=== PATIENT | male | born 1995 | race African-American/Black ===

== ENCOUNTER 2024-08-05 13:45 | Emergency (ER) | payer OTHER, SELFPAY ==
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
[2024-08-05 14:11] VITALS: BP 116/68; PULSE 56; RESP 18; TEMP 36.4; O2SAT 100
[2024-08-05] MEDS: ACETAMINOPHEN 500 MG TABLET 1000 MG PO (16:15)
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
--- OUTSIDE RECORDS SUMMARY | 2024-08-09 16:46 | XMS_ITS ---
Author Organization [facility] Address [address] [place] [address] Care Team Providers Care Printed Forms Proofreader Name Role Phone Crissy Barahona Primary Care Provider REASON FOR VISIT 2 month f/up Encounters Encounter Location Date Provider Diagnosis [facility] [address] [place] [address] 05/09/2024 Crissy Barahona Plan Of Treatment No Information Progress Notes * Eric MARTINDOB:1995 (28 yo M)Acc No.[id number]:05/09/2024 Progress Notes Patient:?Eric MARTIN Provider:?Crissy Barahona DNP, FNP-C :1995???Age:28 Y???Sex:Male Jason e:05/09/2024 Address:[address] [place] Subjective: * Chief Complaints: * ???1. 2 month f/up. * Medical History:? Objective: Assessment: Plan: * Treatment: * Care Plan Details* * Electronic signature of Yaquelin Barahona DNP, FNP-C on 08/09/2024 at 04:46 PM SECURITY SYSTEMS ADMINISTRATOR Sign off status: Pending Visit Status:?N/S (No-Show) * Provider:?Crissy Barahona DNP, FNP-C Jason e:?05/09/2024 Generated for Printi ng/Faxing/eTransmitting on:?08/09/2024 04:46 PM SECURITY SYSTEMS ADMINISTRATOR
--- OUTSIDE RECORDS SUMMARY | 2024-08-09 16:46 | XMS_ITS ---
Author Organization [facility] Address [address] [place] [address] Care Team Providers Care Auto Self Service Station Attendant Name Role Phone Crissy Barahona Primary Care Provider REASON FOR VISIT 2 month f/up Encounters Encounter Location Date Provider Diagnosis [facility] [address] [place] [address] 05/08/2024 Crissy Barahona Plan Of Treatment No Information Progress Notes * Eric MARTINDOB:1995 (28 yo M)Acc No.[id number]:05/08/2024 Progress Notes Patient:?Eric MARTIN Provider:?Crissy Barahona DNP, FNP-C :1995???Age:28 Y???Sex:Male Jason e:05/08/2024 Address:[address] [facility] Subjective: * Chief Complaints: * ???1. 2 month f/up. * Medical History:? Objective: Assessment: Plan: * Treatment: * Care Plan Details* * Electronic signature of Yaquelin Barahona DNP, FNP-C on 08/09/2024 at 04:46 PM ARTS ADMINISTRATOR OR MANAGER Sign off status: Pending Visit Status:?N/S (No-Show) * Provider:?Crissy Barahona DNP, FNP-C Jason e:?05/08/2024 Generated for Printi ng/Faxing/eTransmitting on:?08/09/2024 04:46 PM ARTS ADMINISTRATOR OR MANAGER
--- OUTSIDE RECORDS SUMMARY | 2024-08-09 16:47 | XMS_ITS | Encounter Summary ---
Author Organization [facility] Address [address] [place] [address]. [place], [place] [id number] [place], [place] [id number] Care Team Providers Care Special Education Educational Assistant Name Role Phone Ivett Hong MD Primary Care Provider +1- [phone] Encounter Details Date Type Department Care Team (Latest Contact Info) Description 03/22/2024 Travel Social History Tobacco Use Types Packs/Day Years Used Date Smoking Tobacco: Every Day Cigarettes Smokeless Tobacco: Never Sex and Gender Information Value Date Recorded Sex Assigned at Not on file Legal Sex Male 10:01 PM VP LEGAL AFFAIRS Gender Identity Not on file Sexual Orientation Not on file documented as of this encounter Plan of Treatment Not on file documented as of this encounter Visit Diagnoses Not on filedocumented in this encounter Care Teams Special Education Educational Assistant Relationship Specialty Start Date End Date Ivett Hong MD PCP - General FAMILY PRACTICE 05/20/22 documented as of this encounter
--- OUTSIDE RECORDS SUMMARY | 2024-08-09 16:47 | XMS_ITS | Encounter Summary ---
Author Organization [facility] Address [address] [place] [address]. [place], [place] [address] [place], [place] [id number] Care Team Providers Care Timber Management Specialist Name Role Phone Ivett Hong MD Primary Care Provider +1- [phone] Encounter Details Date Type Department Care Team (Latest Contact Info) Description 09/06/2023 Travel Social History Tobacco Use Types Packs/Day Years Used Date Smoking Tobacco: Never Assessed Sex and Gender Information Value Date Recorded Sex Assigned at Not on file Legal Sex Male 10:01 PM WELLNESS DIRECTOR Gender Identity Not on file Sexual Orientation Not on file documented as of this encounter Plan of Treatment Not on file documented as of this encounter Visit Diagnoses Not on filedocumented in this encounter Care Teams Timber Management Specialist Relationship Specialty Start Date End Date Ivett Hong MD PCP - General FAMILY PRACTICE 05/20/22 documented as of this encounter
--- OUTSIDE RECORDS SUMMARY | 2024-08-09 16:47 | XMS_ITS | Encounter Summary ---
Author Organization [facility] Address [address] [place] [address]. [place], [place] [id number] [place] [address] Care Team Providers Care Counter Clerk [employer] Name Role Phone Ivett Hong MD Primary Care Provider +1- [phone] Encounter Details Date Type Department Care Team (Latest Contact Info) Description 10/28/2022 Travel Social History Tobacco Use Types Packs/Day Years Used Date Smoking Tobacco: Never Assessed Sex and Gender Information Value Date Recorded Sex Assigned at Not on file Legal Sex Male 10:01 PM MANAGER INFUSION Gender Identity Not on file Sexual Orientation Not on file COVID-19 Exposure Response Date Recorded In the last 10 days, have yo u been in contact with someone who was confirmed or suspected to have Coronavirus/COVID-19? No / Unsure 10/28/2022 12:38 PM MANAGER INFUSION documented as of this encounter Plan of Treatment Not on file documented as of this encounter Visit Diagnoses Not on filedocumented in this encounter Care Teams Counter Clerk [employer] Relationship Specialty Start Date End Date Ivett Hong MD PCP - General FAMILY PRACTICE 05/20/22 documented as of this encounter
--- OUTSIDE RECORDS SUMMARY | 2024-08-09 16:47 | XMS_ITS | Encounter Summary ---
Author Organization [facility] Address [address] [place] [address]. [place] [address] [place] [address] Care Team Providers Care Student Officer Name Role Phone None, Provider Primary Care Provider Unavaila ble Reason for Referral * Imaging (Emergency) - Closed Specialty Diagnoses / Procedures Referred By Gavin perez Referred To Contact RADIOLOGY Procedures US TESTICULAR Jose Daniel NP Phone: tel: fax: Referral ID Status Reason Start Date Expiration Date Visits Re quested Visits Authorized [id number] Closed 05/31/2019 07/01/2020 1 1 Reason for Visit * Reason Comments Testicle Swelling Encounter Details Date Type Department Care Team (Late st Contact Info) Description 05/31/2019 2:07 PM CDT - 05/31/2019 5:04 PM CDT Emergency [facility] Emergency [address] [place] [address] Karissa Marin, TINO Testicle Swelling Discharge Disposition: Home or Self Care (Routine Discharge) Social History Tobacco Use Types Packs/Day Years Used Date Smoking Tobacco: Never Assessed Sex and Gender Information Value Date Recorded Sex Assigned at Not on file Legal Sex 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 Gender Identity Not on file Sexual Orientation Not on file documented as of this encounter Last Filed Vital Signs Vital Sign Reading Time Taken Comments Blood Pressure 107/66 05/31/2019 5:01 PM CDT Pulse 79 05/31/2019 5:01 PM CDT Temperature 37.1 ??C (98.8 ??F) 05/31/2019 1:23 PM CD T Respiratory Rate 18 05/31/2019 5:01 PM CDT Oxygen Saturation 100% 05/31/2019 5:01 PM CDT Inhaled Oxygen Concentration - - Weight 61.7 kg (136 lb 0.4 oz) 05/31/2019 1:23 P M CDT Height 172.7 cm (5' 8 ) 05/31/2019 1:23 PM CDT Body Mass Index 20.68 05/31/2019 1:23 PM CDT documented in this encounter Discharge Instructions * Discharge Instructions* Karissa Cuevas NP - 05/31/2019 4:55 PM CDT -Wear scrotal support as discussed. -Elevate scrotum as much as possible, roll washcloth and place under scrotum as needed for comfort. -Pain medication as needed. -Follow-up as needed. -If prescribed medications, fill them and take as directed. -Follow up with your doctor or doctor referral, call next business day to schedule an appointment for ED follow up in 7-10 days. -Return to the Emergency Department for new or worsening symptoms. Please read and follow additional written instructions provided You were either given a dose of strong pain medication in the ED or pain medications to take at home. This pain medication may cause drowsiness. Please do not engage in activities that require you rose alert while taking this medication, such as driving a car or operating machinery. Do not drink alcohol while taking this medication. * Attachments The following attachments cannot be sent through Care Everywhere. * Hydrocele/Varicocele Discharge Instructions (Bulgarian) documented in this encounter Medications at Time of Discharge hydrocodone-aceta minophen 5-325 MG tabletIndications :Acute Pain < 3 Day Supply Take 1 tablet by mouth every 6 (six) hours as needed. Indications: Acute Pain < 3 Day Supply 10 tablet 05/31/2019 ibuprofen 600 MG tablet Take 1 tablet (600 mg total) by mouth every 6 (six) hours as needed. 20 tablet 05/31/2019 10/17/2022 documented as of this encounter ED Notes * Karissa Cuevas NP - 05/31/2019 2:24 PM CDT ED NOTE I, keri Tao, am personally taking down the notes in the presence of Karissa Cuevas NP.?Take no action on this note until reviewed and authenticated??by the physician. Chief Complaint Chief Complaint Patient presents with ??? Testicle Swelling History of Present Illness History provided by: Patient Patient is a 23-year-old male presenting to the ED seeking evaluation for intermittent left testicular pain x 1 week. Patient states the pain feels like pressure and states is not exacerbated by any activities. Comes and goes on its own. He states his daughter ran into him really hard causing the pain. He denies dysuria, left abdominal pain, penile discharge, hematuria, penile itchiness, CP, SOB,fever and chills. He states he has a PMHx of breaking his leg. Otherwise the patient is in their baseline state of health. Medical History ALLERGIES: No Known Allergies MEDICATIONS: Prior to Admission medications Medication Sig Start Date End Date Taking? Authorizing Provider hydrocodone-acetaminophen 5-325 MG tablet Take 1 tablet by mouth every 6 (six) hours as needed. Indications: Acute Pain < 3 Day Supply 05/31/19 Yes Karissa Cuevas NP ibuprofen 600 MG tablet Take 1 tablet (600 mg total) by mouth every 6 (six) hours as needed. 05/31/19 Yes Karissa Cuevas NP PAST MEDICAL HISTORY: No past medical history on file. PAST SURGICAL HISTORY: No past surgical history on file. FAMILY HISTORY: No family history on file. SOCIAL HISTORY: Social History Tobacco Use ??? Smoking status: Not on file Substance Use Topics ??? Alcohol use: Not on file ??? Drug use: Not on file Review of Systems Review of Systems Constitutional: Negative. Negative for chills and fever. HENT: Negative. Eyes: Negative. Respiratory: Negative. Negative for shortness of breath. Cardiovascular: Negative. Negative for chest pain. Gastrointestinal: Negative. Negative for abdominal pain (denies left abdominal pain). Endocrine: Negative. Genitourinary: Positive for testicular pain (reports intermittent left testicular pain). Negative for discharge, dysuria and hematuria. Denies penile itchiness. Musculoskeletal: Negative. Skin: Negative. Allergic/Immunologic: Negative. Neurological: Negative. Hematological: Negative. Psychiatric/Behavioral: Negative. Physical Exam Filed Vitals: 05/31/19 1323 05/31/19 1609 BP: 109/76 Pulse: 57 55 Resp: 18 18 Temp: 98.8 ??F (37.1 ??C) TempSrc: Oral SpO2: 97% 97% Weight: 61.7 kg (136 lb 0.4 oz) Height: 5' 8 (1.727 m) Physical Exam Nursing note and vitals reviewed. Generalized Appearance: No apparent distress. Well developed. Well nourished. Skin: Warm and dry. No rash. Head: Normocephalic and atraumatic Eyes: Conjunctiva clear with no scleral icterus or jaundice. PERRL/EOMI Neck: Non-tender. Supple. Trachea midline. Back: Non-tender. Normal ROM. Chest and Respiratory: Airway patent. Breath sounds equal. Lungs clear with auscultation. No stridor, wheezes, rales, or rhonchi. No accessory muscle use. No respiratory distress. Cardiovascular: Regular rate and rhythm. No murmur, rubs, or gallops. Abdominal: Non-tender. Bowel sounds present. Soft. Non-distended. No obvious masses or hernias. No rebound, guarding, or rigidity. Musculoskeletal: Normal ROM. No deformity. Neurologic: Alert and oriented x 3. No gross motor deficits. Mental Status: Normal affect. Genital-Rectal: male deferred. No inguinal tenderness to palpation of the left scrotal area. No erythema, edema, lesions or penile drainage to the left testicle. Left testicular tenderness to palpation. Diagnostic Studies / Procedures ELECTROCARDIOGRAMS: No results found for this visit on 05/31/19. LABORATORY STUDIES: Results for orders placed or performed during the hospital encounter of 05/31/19 URINALYSIS Result Value Ref Range COLOR YELLOW TRANSPARENCY CLEAR Specific [place] (U) 1.029 1.002 - 1.035 U PH 6.0 5 - 8 PROTEIN, URINE NEGATIVE NEGATIVE URINE GLUCOSE NEGATIVE NEGATIVE MG/DL U KETONES 20 (A) NEGATIVE Urine Bilirubin NEGATIVE NEGATIVE BLOOD NEGATIVE NEGATIVE NITRITES NEGATIVE NEGATIVE UROBILINOGEN 4.0 (H) 0 - 1 EU/DL LEUKOCYTE ESTERASE NEGATIVE NEGATIVE RBC/HPF 1 0 - 3 /HPF WBC/HPF NONE 0 - 6 /HPF BACTERIA (URINE) NONE /HPF IMAGING STUDIES US TESTICULAR Final Result by User, [id number] (10/09 1514) 05/31/2019, 1432 hours. HISTORY: Left testicular pain for one week. Intermittent pain. EXAM: Ultrasound imaging of the scrotum and contents was performed utilizing grayscale and color Doppler spectral analysis imaging techniques. No comparison. FINDINGS: The right testicle measures 2.7 x 4.0 x 2.6 cm. The left testicle measures 3.3 x 4.4 x 3.1 cm. No evidence of testicular mass or cyst. No focal areas of hyper echogenicity in either testicle and no evidence of testicular microlithiasis. Blood flows demonstrated to both testicles in a normal pattern with no evidence of testicular hyperemia nor testicular ischemia. 7 x 11 mm left epididymal cyst. Prominent left scrotal varices. Mild right scrotal varices. Small hydroceles. IMPRESSION: Normal ultrasound appearance to the testicles. Left epididymal cyst. Scrotal varices. Small hydroceles. Interpreted By: Breezy Chi MD, 05/31/2019 3:08 PM ED Course / Medical Decision Making MDM Number of Diagnoses or Management Options Epididymal cyst: new, needed workup Hydrocele: new, needed workup Scrotal varices: new, needed workup Amount and/or Complexity of Data Reviewed Clinical lab tests: reviewed and ordered Tests in the radiology section of CPT??: ordered and reviewed Patient Progress Patient progress: improved ED Course as of May 31 1656 Wed May 31, 2019 1432 Attempted to assess patient, already in US. [LF] 1512 Here for evaluation of pain to left testicle. Pain comes and goes, is not related to activity.No penile drainage or sores. Denies any risk for STIs. Left testicle tender to palpation, mildly enlarged. Awaiting US results and need for urine, patient agreeable with this. [LF] 1515 Normal ultrasound appearance to the testicles. Left epididymal cyst. Scrotal varices. Small hydroceles. US TESTICULAR [LF] 1648 Discussed US results with patient. Pain decreased after [place]. 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 Provided with Urology referral as needed as well as PCP referral. Discharged on short course of [place] and Motrin. Discussed all results and incidental findingswith the patient. Supportive measures discussed. Signs and symptoms to monitor for, reasons to return to the emergency department, discharge, and follow-up instructions given to patient. Patient verbalized understanding, denies further questions, and agrees with plan. VS normal at discharge. Cosigner will be: Dr. Aguirre. [LF] ED Course User Index [LF] Karissa Cuevas NP Medications hydrocodone-acetaminophen (NORCO) 5-325 MG tablet 1 tablet (1 tablet Oral Given 05/31/19 1521) Clinical Impression Scrotal varices (Primary) Hydrocele Epididymal cyst Disposition: Discharge Current Discharge Medication List START taking these medications Details hydrocodone-acetaminophen 5-325 MG tablet Take 1 tablet by mouth every 6 (six) hours as needed. Indications: Acute Pain < 3 Day Supply Qty: 10 tablet, Refills: 0 Class: Print Pharmacy: [facility]/pharmacy [address] [place] [address] (Ph #: [phone]) ibuprofen 600 MG tablet Take 1 tablet (600 mg total) by mouth every 6 (six) hours as needed. Qty: 20 tablet, Refills: 0 Class: Eprescribe [facility] [place] [address] (Ph #: [phone]) Follow-up: Zhou Mobley MD [address] [place] [id number] As needed, Urologist [facility] [address] [facility] [address] As needed, PCP referral Iris Luna, 05/31/19, 15:21. Provider Attestation: Portions of this note were transcribed by a scribe. IKarissa NP, personally performed the history, physical exam and medical decision making and confirmed the accuracy of the information in the transcribed note. KARISSA CUEVAS NP 05/31/2019 Karissa Cuevas NP 05/31/19 1656 Cosigned by Shelby Aguirre MD at 05/31/2019 5:05 PM CDT * Yaquelin Dutta RN - 05/31/2019 1:21 PM CDT PT ARRIVES AMBULATORY TO TRIAGE. C/O LEFT TESTICULAR SWELLING X 1 WEEK RATING PAIN AT 7. documented in this encounter Plan of Treatment Not on file documented as of this encounter Procedures Procedure Name Priority Date/Time Associated Diagnosis Comments URINALYSIS Nurse Collected Priority 05/31/2019 3:51 PM CDT URINE BACTERIA CULTURE Nurse Collected Priority 05/31/2019 3:51 PM CDT US TESTICULAR STAT 05/31/2019 3:01 PM CDT documented in this encounter Results * CULTURE URINE (05/31/2019 3:51 PM CDT) SPEC DESCRIPTION URINE CLEAN CATCH 05/31/2019 3:55 PM CDT [facility] SPECIAL REQUESTS NO SPECIAL REQUEST 05/31/2019 3:55 PM CDT [facility] CULTURE RESULT NO GROWTH (< OR = 1,000 CFU/ML) 06/01/2019 2:47 AM CDT [facility] URINE SPECIMEN OBTAINED BY CLEAN CATCH PROCEDURE / Unknown 05/31/2019 3:51 PM CDT 05/31/2019 3:59 PM CDT Jose Daniel NP MICROBIOLOGY - GENERAL [place] Final Result [facility] [address] [place] [address], [id number] * (ABNORMAL) URINALYSIS (05/31/2019 3:51 PM CDT) COLOR (U) YELLOW 05/31/2019 4:07 PM CDT [facility] TRANSPARENCY CLEAR 05/31/2019 4:07 PM CDT [facility] SPECIFIC GRAVITY (U) 1.029 1.002 - 1.035 05/31/2019 4:07 PM CDT [facility] U PH 6.0 5 - 8 05/31/2019 4:07 PM CDT [facility] PROTEIN (U) NEGATIVE NEGATIVE 05/31/2019 4:07 PM CDT [facility] URINE GLUCOSE NEGATIVE NEGATIVE MG/DL 05/31/2019 4:07 PM CDT [facility] KETONES MG/DL (U) 20(A) NEGATIVE 05/31/2019 4:07 PM CDT [facility] BILIRUBIN (U) NEGATIVE NEGATIVE 05/31/2019 4:07 PM CDT [facility] BLOOD (U) NEGATIVE NEGATIVE 05/31/2019 4:07 PM CDT [facility] NITRITES NEGATIVE NEGATIVE 05/31/2019 4:07 PM CDT [facility] UROBILINOGEN 4.0(H) 0 - 1 EU/DL 05/31/2019 4:07 PM CDT [facility] LEUKOCYTES (U) NEGATIVE NEGATIVE 05/31/2019 4:07 PM CDT [facility] RBC/HPF 1 0 - 3 /HPF 05/31/2019 4:07 PM CDT [facility] WBC/HPF NONE 0 - 6 /HPF 05/31/2019 4:07 PM CDT [facility] BACTERIA (U) NONE /HPF 05/31/2019 4:07 PM CDT [facility] URINE SPECIMEN OBTAINED BY CLEAN CATCH PROCEDURE / Unknown 05/31/2019 3:51 PM CDT us Jose Daniel FOOD AND DRUG RESEARCH SCIENTIST URINE ORDERABLES Final Resu lt [facility] [address] [place] [address], [id number] * US TESTICULAR (05/31/2019 3:01 PM CDT) Anatomical Region Laterality Modality Pelvis Ultrasound 05/31/2019 3:08 PM CDT Impressions 05/31/2019 3:13 PM CDT IMPRESSION: Normal ultrasound appearance to the testicles. Left epididymal cyst. Scrotal varices. Small hydroceles. Interpreted By: Breezy Chi MD, 05/31/2019 3:08 PM Narrative 05/31/2019 3:13 PM CDT 05/31/2019, 1432 hours. HISTORY: Left testicular pain for one week. Intermittent pain. EXAM: Ultrasound imaging of the scrotum and contents was performed utilizing grayscale and color Doppler spectral analysis imaging techniques. No comparison. FINDINGS: The right testicle measures 2.7 x 4.0 x 2.6 cm. The left testicle measures 3.3 x 4.4 x 3.1 cm. No evidence of testicular mass or cyst. No focal areas of hyper echogenicity in either testicle and no evidence of testicular microlithiasis. Blood flows demonstrated to both testicles in a normal pattern with no evidence of testicular hyperemia nor testicular ischemia. 7 x 11 mm left epididymal cyst. Prominent left scrotal varices. Mild right scrotal varices. Small hydroceles. Procedure Note Breezy Chi MD - 05/31/2019 05/31/2019, 1432 hours. HISTORY: Left testicular pain for one week. Intermittent pain. EXAM: Ultrasound imaging of the scrotum and contents was performed utilizing grayscale and color Doppler spectral analysis imagingtechniques. No comparison. FINDINGS: The right testicle measures 2.7 x 4.0 x 2.6 cm. The lefttesticle measures 3.3 x 4.4 x 3.1 cm. No evidence of testicular mass or cyst. No focal areas of hyper echogenicity in either testicle and no evidence of testicular microlithiasis. Blood flows demonstrated to both testicles frida normal pattern with no evidence of testicular hyperemia nor testicular ischemia. 7 x 11 mm left epididymal cyst. Prominent left scrotalvarices. Mild right scrotal varices. Small hydroceles. IMPRESSION: Normal ultrasound appearance to the testicles. Left epididymal cyst. Scrotal varices. Small hydroceles. Interpreted By: Breezy Chi MD, 05/31/2019 3:08 PM us Jose Daniel NP ULTRASOUND Final Resul t documented in this encounter Visit Diagnoses Diagnosis Scrotal varices- Primary Hydrocele Hydrocele, unspecified Epididymal cyst Other specified disorder of male genital organs documented in this encounter Administered Medications Inactive Administered Medications - up to 3 most recent administrations Medication Order MAR Action Action Date Dose Rate Site hydrocodone-acetaminophen (NORCO) 5-325 MG tablet 1 tablet 1 tablet, Oral, Once, 1 dose, On Wed05/31/19 at 1515, Maximum dose of acetaminophen is 4000 mg from all sources in 24 hours. Given 05/31/2019 3:21 PM CDT 1 tablet documented in this encounter Active and Recently Administered Medications Times are shown in CDT. Scheduled Medication Order 05/29/2019 05/30/2019 05/31/2019 hydrocodone-acetaminophen (NORCO) 5-325 MG tablet 1 tablet (COMPLETED) 1 tablet, Oral, Once, 1 dose, On Wed05/31/19 at 1515, Maximum dose of acetaminophen is 4000 mg from all sources in 24 hours. 1521 (Given - Provid er: Elinor Ivan RN) documented in this encounter Care Teams Student Officer Relationship Specialty Start Date End Date None, Provider, PCP - General 05/31/19 05/19/22 documented as of this encounter
--- OUTSIDE RECORDS SUMMARY | 2024-08-09 16:47 | XMS_ITS ---
Author Organization [facility] Address [address] [place] [address] Care Team Providers Care Rn On Site Name Role Phone Crissy Barahona Primary Care Provider Reason For Referral Reason Evaluate and treat Diagnosis 1 Liver mass (R16.0) Referral Organization [facility] Referring Provider First Name Crissy Referring Provider Last Name Jun Referring Provider Speciality Family Med icine Referred Provider [facility] Referred Provider Specialty Hepatology General Notes Endy Yates 03/27 12:26:32 PM >Faxed to [facility] Referrals,, Endy Yates 05/18/2024 04:28:12 PM >Pt scheduled 06/07/2024 @ 9:00 AM with Odalys Fountain NP of [facility], [address] [place] [address], [address] [place] [address]. Letter to pt. Referral Priority Routine Referral Appointment Date 06/07/2024 REASON FOR VISIT Test results Encounters Encounter Location Date Provider Diagnosis [facility] [address] [place] [address] 03/23/2024 Crissy Barahona Liver mass R16.0 Assessments Encounter Date Diagnosis (ICD Code) Assessment Notes Treatment Notes Treatment Clinical Notes Section Notes 03/23/2024 Liver mass (ICD-10 - R16.0) Plan Of Treatment Pending Test Test Name Order Date AFP TUMOR MARKER * 03/23/2024 MISCELLANEOUS SO * 03/23/2024 Referrals Referral Date Details 03/23/2024 03/23/2024, Evaluate and treat, [facility] Progress Notes * Osbaldo OLIVERA:1995 (28 yo M)Acc No.[id number]:03/23/2024 Patient:?Eric OLIVERA :1995???Age:28 Y???Sex:Male Address:[address] [place] [address], [phone] Subjective: * Chief Complaints: * ???Test results * Medical History:? * Surgical History:? * Hospitalization/Major Diagno stic Procedure:? * Medications:? Objective: * Vitals:? * Physical Examination:? Assessment: * Assessment: 1.?Liver mass - R16.0 (Prima ry)??? Plan: * Treatment: * Procedure Codes:? * true * Date:? Generated for Eneida calixto/Norma/eTransmitting on:?08/09/2024 04:46 PM GEM TECHNICIAN Consultation Request Notes Referral Date Referring Provider Referred Provider Not jacinta 03/23/2024 Crissy Barahona MEDICINE REFERRAL, Ev aluate and treat
--- OUTSIDE RECORDS SUMMARY | 2024-08-09 16:47 | XMS_ITS | Encounter Summary ---
Author Organization [facility] Address [address] [place] [address]. [place], [place] [id number] [place] [id number] Care Team Providers Care Truck Loader Name Role Phone Ivett Hong MD Primary Care Provider [phone] Reason for Referral * Imaging (Urgent) - New Request Specialty Diagnoses / Procedures Referred By Gavin perez Referred To Contact RADIOLOGY Procedures CT HEAD WO CON Oumar Mckenna MD Phone: tel: fax: Referral ID Status Reason Start Date Expiration Date V isits Requested Visits Authorized [id number] New Request 09/06/2023 09/06/2024 1 1 [facility]ASS Reason for Visit * Reason Comments Medical Problem Encounter Details Date Type Department Care Team (Late st Contact Info) Description 09/06/2023 7:08 PM SANDB[facility]ASS - 09/06/2023 10:18 PM [facility]AND[facility]ER [facility] Emergency [facility] Emergency [address] [place] [address] Oumar Mckenna MD [address] [place] [address] [id number] Medical Problem Discharge Disposition: Home or Self Care (Routine Discharge) Social History Tobacco Use Types Packs/Day Years Used Date Smoking Tobacco: Never Assessed Sex and Gender Information Value Date Recorded Sex Assigned at Not on file Legal Sex Male 10:01 PM SANDBLAST[facility]ASS Gender Identity Not on file Sexual Orientation Not on file documented as of this encounter Last Filed Vital Signs Vital Sign Reading Time Taken Comments Blood Pressure 139/101 09/06/2023 10:09 PM [facility] Pulse 84 09/06/2023 10:09 PM [facility]ASS Temperature 37 ??C (98.6 ??F) 09/06/2023 7:05 PM [facility]ASS Respiratory Rate 16 09/06/2023 10:0 9 PM [facility]ASS Oxygen Saturation 95% 09/06/2023 10: 09 PM [facility]ANDBLAST[facility]ASS Inhaled Oxygen Concentration - - Weight 58.8 kg (129 lb 10.1 oz) 09/06/2023 7:05 PM [facility] Height 167.6 cm (5' 6 ) 09/06/2023 7:05 PM [facility]ASS Body Mass Index 20.92 09/06/2023 7:05 PM SANDBLASTER [facility]ASS documented in this encounter Discharge Instructions * Discharge Instructions* Jennifer Angeles MD - 09/06/2023 10:13 PM S[facility]LAST[facility] Contact PCP about syncope as well as anxiety/insomnia/PTSD. BLASTER GLASS * Attachments The following attachments cannot be sent through Care Everywhere. * Syncope (fainting) (Citizen Of [place]) documented in this encounter Medications at Time of Discharge diclofenac EC (VOLTAREN) 75 MG tablet Take 1 tablet (75 mg total) by mouth every 12 (twelve) hours as needed (pain). 20 tablet 10/17/2022 HYDROcodone-aceta minophen (NORCO) 5-325 MG tabletIndications :Acute Pain < 3 Day Supply Take 1-2 tablets by mouth every 6 (six) hours as needed. Indications: Acute Pain < 3 Day Supply 16 tablet 10/17/2022 hydrocodone-aceta minophen 5-325 MG tabletIndications :Acute Pain < 3 Day Supply Take 1 tablet by mouth every 6 (six) hours as needed. Indications: Acute Pain < 3 Day Supply 10 tablet 05/31/2019 documented as of this encounter ED Notes * Oumar Mckenna MD - 09/06/2023 7:28 PM CST Chief Complaint Chief Complaint Patient presents with Medical Problem History of Present Illness Patient is a 27-year-old male with no known past medical history who presents today for chronic syncopal episodes. He did not pass out today however he did notice a presyncopal episode. He states that he has been passing out for no known reason for the last 3 years. He notes that he was previously admitted to the ER for stitches on his chin after a fall. He says that he is aware of when he may bepassing out now so he is able to sit on the floor to prevent syncope. He reports that he does not see any doctors and never followed up about the syncopal episodes until today. He says that he just came in today because of the presyncopal episode. He reports that he can usually tell when he is about the syncopal episode because of feeling warm or cold. Medical History ALLERGIES: Review of patient's allergies indicates: No Known Allergies MEDICATIONS: Prior to Admission medications Medication Sig Start Date End Date Taking? Authorizing Provider diclofenac EC (VOLTAREN) 75 MG tablet Take 1 tablet (75 mg total) by mouth every 12 (twelve) hours as needed (pain). 10/17/22 Jose Daniel NP HYDROcodone-acetaminophen (NORCO) 5-325 MG tablet Take 1-2 tablets by mouth every 6 (six) hours as needed. Indications: Acute Pain < 3 Day Supply 10/17/22 Jose Daniel NP hydrocodone-acetaminophen 5-325 MG tablet Take 1 tablet by mouth every 6 (six) hours as needed. Indications: Acute Pain < 3 Day Supply 05/31/19 Karissa Marin NP PAST MEDICAL HISTORY: History reviewed. No pertinent past medical history. PAST SURGICAL HISTORY: No past surgical history on file. FAMILY HISTORY: No family history on file. SOCIAL HISTORY: Review of Systems Review of Systems Constitutional: Negative for activity change, chills, fatigue and fever. HENT: Negative for congestion, facial swelling, hearing loss and nosebleeds. Respiratory: Negative for apnea, cough, choking, chest tightness and shortness of breath. Cardiovascular: Negative for chest pain and leg swelling. Gastrointestinal: Negative for abdominal distention, abdominal pain and anal bleeding. Endocrine: Negative for cold intolerance and heat intolerance. Genitourinary: Negative for difficulty urinating and dysuria. Musculoskeletal: Negative for arthralgias and back pain. Skin: Negative for color change, pallor and rash. Neurological: Negative for dizziness, light-headedness and headaches. Psychiatric/Behavioral: Negative for agitation, behavioral problems and confusion. The patient is nervous/anxious. Physical Exam Filed Vitals: 09/06/23 1905 09/06/23 1948 09/06/23 2113 09/06/23 2209 BP: (!) 153/84 (!) 153/90 (!) 154/99 (!) 139/101 Pulse: 95 (!) 102 100 84 Resp: 18 14 17 16 Temp: 98.6 ??F (37 ??C) TempSrc: Oral SpO2: 97% 98% 98% 95% Weight: 58.8 kg (129 lb 10.1 oz) Height: 1.676 m (5' 6 ) Physical Exam HENT: Head: Normocephalic. Eyes: Pupils: Pupils are equal, round, and reactive to light. Cardiovascular: Rate and Rhythm: Normal rate and regular rhythm. Heart sounds: No murmur heard. No friction rub. No gallop. Pulmonary: Effort: Pulmonary effort is normal. No respiratory distress. Breath sounds: No stridor. No wheezing. Abdominal: General: There is no distension. Tenderness: There is no abdominal tenderness. Musculoskeletal: General: No swelling. Skin: Coloration: Skin is not jaundiced. Findings: No bruising. Neurological: Mental Status: He is alert. Motor: No weakness. Diagnostic Studies / Procedures ELECTROCARDIOGRAMS: Results for orders placed or performed during the hospital encounter of 09/06/23 ECG 12 lead Narrative [facility] Test Date: 2023-09-06 Pat Name: FELISA OLIVERA Department: 70 Room: EXAM AA Gender: Male Hydrogen Operator: Shazia JEAN-BAPTISTE : 1995 Requested By: JENNIFER ANGELES Order Number: [id number] Reading MD: Measurements Intervals [place] Rate: 88 P: 69 [place]: 129 QRS: 81 QRSD: 110 T: 55 QT: 331 QTc: 401 Interpretive Statements SINUS RHYTHM WITH SINUS ARRHYTHMIA EARLY REPOLARIZATION [ST ELEVATION WITH NORMALLY INFLECTED T-WAVE] LABORATORY STUDIES: Results for orders placed or performed during the hospital encounter of 09/06/23 CBC W/DIFF AUTOMATED Result Value Ref Range WBC 2.65 (L) 4.00 - 10.80 x10'3/uL RBC 4.86 4.50 - 6.10 x10'6/uL HGB 15.3 13.0 - 18.0 G/DL HCT 43.4 37.0 - 52.0 % MCV 89.3 78.0 - 100.0 FL MCH 31.5 (H) 27.0 - 31.0 PG MCHC 35.3 33.0 - 36.0 G/DL RDW 12.1 11.5 - 14.5 % PLT 273 150 - 350 x10'3/uL MPV 8.7 7.4 - 10.4 FL ABS. NEUTROPHILS 1.14 (L) 1.60 - 8.30 x10'3/uL ABS. NEUTROPHIL COUNT 1.14 (L) 1.60 - 7.30 x10'3/uL ABS. LYMPHOCYTES 1.11 0.80 - 4.70 x10'3/uL ABS. MONOCYTES 0.19 0.00 - 1.50 x10'3/uL ABS. EOSINOPHILS 0.13 0.00 - 0.40 x10'3/uL ABS. BASOPHILS 0.08 0.00 - 0.20 x10'3/uL ABS. NUCLEATED RBC'S 0.00 0.0 x10'3/uL RBC MORPHOLOGY NORMAL PLT MORPH. NORMAL BASIC METABOLIC PANEL Result Value Ref Range SODIUM S/P/B 142 136 - 145 MMOL/L POTASSIUM S/P/B 3.6 3.5 - 5.1 MMOL/L CHLORIDE S/P/B 104 98 - 107 MMOL/L CO2 31.8 21.0 - 32.0 MMOL/L GLUCOSE 92 74 - 106 MG/DL BUN 12 7 - 18 MG/DL CREATININE S/P/B 1.01 0.70 - 1.30 MG/DL CALCIUM S/P/B 9.7 8.5 - 10.1 MG/DL ANION GAP 6.2 5.0 - 15.0 MMOL/L OSMOLALITY (CALC) 293 MOSM/KG GFR ESTIMATE >90 >90 ML/MIN/1.73 M2 GFR NOTES GFR REFERENCES: TROPONIN, QUANT Result Value Ref Range TROPONIN I HIGH SENSITIVITY 21 0 - 78 ng/L MAGNESIUM Result Value Ref Range MAGNESIUM 2.3 1.6 - 2.6 MG/DL TSH W/REFLEX Result Value Ref Range TSH 1.220 0.358 - 3.740 uIU/ML HEPATIC FUNCTION PANEL Result Value Ref Range BILIRUBIN TOTAL S/P/B 0.7 0.2 - 1.0 MG/DL BILIRUBIN DIRECT S/P/B 0.2 0.0 - 0.2 MG/DL ALKALINE PHOSPHATASE S/P/B 93 45 - 115 U/L AST 42 (H) 15 - 37 U/L ALT 36 16 - 61 U/L TOTAL PROTEIN S/P/B 8.3 (H) 6.4 - 8.2 G/DL ALBUMIN S/P/B 4.5 3.4 - 5.0 G/DL DRUG SCREEN RAPID Result Value Ref Range PHENCYCLIDINE PCP (U) NEGATIVE NEGATIVE BENZODIAZEPINES SCREEN (U) NEGATIVE NEGATIVE COCAINE METABOLITES (U) NEGATIVE NEGATIVE AMPHETAMINE (U) NEGATIVE NEGATIVE CANNABINOIDS SCREEN (U) (A) NEGATIVE POSITIVE SCREEN RESULT, IF CONFIRMATION DESIRED PLEASE CONTACT LAB WITHIN ONE WEEK. OPIATE SCREEN (U) NEGATIVE NEGATIVE BARBITURATES SCREEN (U) NEGATIVE NEGATIVE URINE TOX COMMENT Unconfirmed screening results are to be used only for medical purposes. CUTOFF CONCENTRATION (U) Cut-off Concentration for a positive result IMAGING STUDIES CT HEAD WO CON Final Result by User, [id number] (09/06 2017) EXAMINATION: CT of the head CLINICAL HISTORY: Syncope versus seizure COMPARISON: 10/11/2020 TECHNIQUE: CT examination of the head without contrast was performed with axial images obtained. A dose lowering technique was used for this procedure, which may include, but is not limited to, dose reduction technique, automated exposure control, the use of iterative reconstruction, and ALARA (As Low As Reasonably Achievable) / Image Gently techniques. FINDINGS: No acute intracranial hemorrhage, extra-axial collections, intracranial mass effect, or midline shift. Brown-white matter differentiation grossly preserved. No definite CT evidence of acute territorial infarction. Ventricles and extra-axial/subarachnoid spaces are unremarkable. Calvarium unremarkable. Mastoid air cells clear. Paranasal sinuses clear. Visualized orbits unremarkable. IMPRESSION: 1. No definite CT evidence of acute intracranial abnormality. Referred By: Interpreted By: Vin Chapman MD, 09/06/2023 8:15 PM XR CHEST PORTABLE Final Result by User, [id number] (09/06 1953) EXAM: XR CHEST PORTABLE DATE: 09/06/2023 Comparison 08/25/2005 INDICATION: Not feeling right. TECHNIQUE: One view FINDINGS: Normal heart and pulmonary vessel size. The lungs are clear. No interstitial edema, hyperinflation, or pleural effusion. Normal appearance of the bones. IMPRESSION: Normal exam. Referred By: Interpreted By: Bakari Ferrara MD, 09/06/2023 7:48 PM ED Course / Medical Decision Making Medical Decision Making Work patient up for syncopal episodes CBC, BMP, IVF, troponins, CXR, magnesium ED Course as of 09/08/23452Sep 06, [id number] Discussed results with patient. WBC low, neutropenic. Other labs wnl. EKG unremarkable. [LA] 2209 CT head and CXR unremarkable. Plan to discharge patient. Plan to follow up outpatient for syncopal episodes and difficulty sleeping at night [LA] ED Course User Index [LA] Jennifer Angeles MD Clinical Impression Pre-syncope (Primary) Disposition: Discharge Portions of this note were written by a resident. I independently performed history and physical examination of the patient. I was present for the entirety of the encounter and directed patient care and medical decision making. I have reviewed the resident's note and am in agreement, except where otherwise documented by myself. At time of dsicharge, no acute distress. Neutropenia noted on labs without evidence of infectious etiology. Afebrile. Laboratory and radiologic work-up otherwise negative for acute process. EKG without evidence of ischemia. Oumar Mckenna MD 09/08/23452 BLASTER GLASS BLASTER GLASS BLASTER GLASS * ANGELICA Miles - 09/06/2023 7:03 PM CST Pt arrives to triage with c/o feeling like something is not right . Pt states sometimes he gets a point where he almost passes out. States this has been ongoing for years. Pt appears anxious at timeof triage, is pacing at this time. Denies any PMH BLASTER GLASS documented in this encounter Plan of Treatment Not on file documented as of this encounter Procedures Procedure Name Priority Date/Time Associated Diagnosis Comments DRUG SCREEN RAPID Nurse Collected Priority 09/06/2023 10:[address] HEAD WO CON STAT 09/06/2023 8:07 PM SANDBLASTER [facility]ASS XR CHEST PORTABLE STAT 09/06/2023 7:3 9 PM [facility]ANDB[facility]ASS TSH W/REFLEX STAT 09/06/2023 7:37 PM [facility]ANDBLAST[facility]ASS BASIC METABOLIC PANEL STAT 09/06/2023 7:37 PM [facility]AND[facility]LASTER [facility]ASS HEPATIC FUNCTION PANEL STAT 09/06/2023 7:37 PM SANDBLASTER [facility]ASS CBC W/DIFF AUTOMATED STAT 09/06/2023 7:37 PM [facility]ANDBLASTER [facility]ASS TROPONIN, QUANT STAT 09/06/2023 7:37 PM [facility] MAGNESIUM STAT 09/06/2023 7:37 PM SANDBLASTER [facility]ASS ECG 12-LEAD STAT 09/06/2023 7:32 PM SANDBLASTER [facility]ASS documented in this encounter Results * (ABNORMAL) DRUG SCREEN RAPID (09/06/2023 10:10 PM SANDBLASTER GLASS) PHENCYCLIDINE PCP (U) NEGATIVE NEGATIVE 09/06/2023 10:58 PM [facility] BENZODIAZEPINES SCREEN (U) NEGATIVE NEGATIVE 09/06/2023 10:58 PM [facility] COCAINE METABOLITES (U) NEGATIVE NEGATIVE 09/06/2023 10:58 PM [facility] [place] AMPHETAMINE (U) NEGATIVE NEGATIVE 10:58 PM [facility] CANNABINOIDS SCREEN (U) POSITIVE SCREEN RESULT, IF CONFIRMATION DESIRED PLEASE CONTACT LAB WITHIN ONE WEEK. (A) NEGATIVE 09/06/2023 10:58 PM [facility] OPIATE SCREEN (U) NEGATIVE NEGATIVE 024 10:58 PM [facility]AND[facility]LASTER [facility]ASS [facility] BARBITURATES SCREEN (U) NEGATIVE NEGATIVE 09/06/2023 10:58 PM [facility]ASS [facility] URINE TOX COMMENT Unconfirmed screening results are to be used only for medical purposes. 09/06/2023 10:10 PM [facility] CUTOFF CONCENTRATION (U) Cut-off Concentration for a positive result 09/06/2023 10:10 PM [facility]ASS [facility] Comment: Phencyclidine ? 25 ng/mL Benzodiazepines ? 200 ng/mL Cocaine ? 300 ng/mL Amphetamine ? 1000 ng/mL Cannabinoids ?50 ng/mL Opiates ? 300 ng/mL Barbiturates ?200 ng/mL URINE SPECIMEN / Unknown 09/06/2023 10:10 PM SANDBLASTER [facility]ASS us Oumar Mckenna MD URINE ORDERABLES Final Re sult [facility] [address] [place] [address], [id number] * CT HEAD WO CON (09/06/2023 8:07 PM SANDBLASTER GLASS) Anatomical Region Laterality Modality Head Computed Tomogra phy 09/06/2023 8:15 PM SANDBLASTER [facility]ASS Impressions 09/06/2023 8:17 PM [facility]AND[facility]LASTER [facility]ASS IMPRESSION: 1. No definite CT evidence of acute intracranial abnormality. Referred By: ?? Interpreted By: Vin Chapman MD, 09/06/2023 8:15 PM Narrative 09/06/2023 8:17 PM SANDB[facility]ER [facility]ASS EXAMINATION: CT of the head CLINICAL HISTORY: Syncope versus seizure COMPARISON: 10/11/2020 TECHNIQUE: CT examination of the head without contrast ??was performed with axial images obtained. A dose lowering technique was used for this procedure, which may include, but is not limited to, dose reduction technique, automated exposure control, the use of iterative reconstruction, and ALARA (As Low As Reasonably Achievable) / Image Gently techniques. FINDINGS: No acute intracranial hemorrhage, extra-axial collections, intracranial mass effect, or midline shift. Brown-white matter differentiation grossly preserved. No definite CT evidence of acute territorial infarction. Ventricles and extra- axial/subarachnoid spaces are unremarkable. Calvarium unremarkable. Mastoid air cells clear. Paranasal sinuses clear. Visualized orbits unremarkable. Procedure Note Vin Chapman MD - 09/06/2023 EXAMINATION: CT of the head CLINICAL HISTORY: Syncope versus seizure COMPARISON: 10/11/2020 TECHNIQUE: CT examination of the head without contrast was performed withaxial images obtained. A dose lowering technique was used for this procedure, which may include,but is not limited to, dose reduction technique, automated exposurecontrol, the use of iterative reconstruction, and ALARA (As Low AsReasonably Achievable) / Image Gently techniques. FINDINGS: No acute intracranial hemorrhage, extra-axial collections, intracranialmass effect, or midline shift. Brown-white matter differentiation grosslypreserved. No definite CT evidence of acute territorial infarction.Ventricles and extra-axial/subarachnoid spaces are unremarkable. Calvariumunremarkable. Mastoid air cells clear. Paranasal sinuses clear. Visualizedorbits unremarkable. IMPRESSION: 1. No definite CT evidence of acute intracranial abnormality. Referred By: Interpreted By: Vin Chapman MD, 09/06/2023 8:15 PM us Oumar Mckenna MD CT Final Res ult * XR CHEST PORTABLE (09/06/2023 7:39 PM SANDBLASTER GLASS) Anatomical Region Laterality Modality Chest Radiographic Chelsie ging 09/06/2023 7:48 PM SANDBLASTER [facility]ASS Impressions 09/06/2023 7:52 PM [facility]AND[facility]ASS IMPRESSION: Normal exam. Referred By: ?? Interpreted By: Bakari Ferrara MD, 09/06/2023 7:48 PM Narrative 09/06/2023 7:52 PM SANDBLASTER [facility]ASS EXAM: XR CHEST PORTABLE DATE: 09/06/2023 ?? Comparison 08/25/2005 INDICATION: Not feeling right. TECHNIQUE: One view FINDINGS: Normal heart and pulmonary vessel size. ??The lungs are clear. ??No interstitial edema, hyperinflation, or pleural effusion. ??Normal appearance of the bones. Procedure Note Bakari Ferrara MD - 09/06/2023 EXAM: XR CHEST PORTABLE DATE: 09/06/2023 Comparison 08/25/2005 INDICATION: Not feeling right. TECHNIQUE: One view FINDINGS: Normal heart and pulmonary vessel size. The lungs are clear.No interstitial edema, hyperinflation, or pleural effusion. Normalappearance of the bones. IMPRESSION: Normal exam. Referred By: Interpreted By: Bakari Ferrara MD, 09/06/2023 7:48 PM Jennifer Angeles MD GENERAL IMAGING Final Result * (ABNORMAL) HEPATIC FUNCTION PANEL (09/06/2023 7:37 PM SANDBLASTER [facility]ASS) BILIRUBIN TOTAL S/P/B 0.7 0.2 - 1.0 MG/DL 09/06/2023 8:41 PM [facility] BILIRUBIN DIRECT S/P/B 0.2 0.0 - 0.2 MG/DL 09/06/2023 8:41 PM [facility] [place] ALKALINE PHOSPHATASE S/P/B 93 45 - 115 U/L 09/06/2023 8:41 PM [facility] [place] AST 42(H) 15 - 37 U/L 09/06/2023 8:41 PM [facility] [place] ALT 36 16 - 61 U/L 09/06/2023 8:41 PM [facility] [place] TOTAL PROTEIN S/P/B 8.3(H) 6.4 - 8.2 G/DL 09/06/2023 8:41 PM [facility] [place] ALBUMIN S/P/B 4.5 3.4 - 5.0 G/DL 09/06/2023 8:41 PM [facility] [place] 09/06/2023 7:37 PM SANDBLASTER GLASS us Oumar Mckenna MD LABORATORY Final Res ult Performing Organization Address [facility] Co de Phone Number [facility] [address] [place] [address], [phone] * TSH W/REFLEX (09/06/2023 7:37 PM SANDBLASTER GLASS) TSH 1.220 0.358 - 3.740 uIU/ML 09/06/2023 8:41 PM [facility]LASTER [place] Comment: ASSAY PERFORMED BY CHEMILUMINESCENCE METHODOLOGY USING [employer] [facility]. PATIENT RESULTS DETERMINED BY ASSAYS USING DIFFERENT MANUFACTURERS FOR METHODS MAY NOT BE COMPARABLE. 09/06/2023 7:37 PM SANDBLASTER GLASS us Oumar Mckenna MD LABORATORY Final Res ult Performing Organization Address [facility] de Phone Number [facility] [address] [place] [address], [phone] * MAGNESIUM (09/06/2023 7:37 PM SANDBLASTER GLASS) MAGNESIUM 2.3 1.6 - 2.6 MG/DL 09/06/2023 8:14 PM [facility] 09/06/2023 7:37 PM SANDBLASTER GLASS us Jennifer Angeles MD LABORATORY Final Result Performing Organization Address [facility] Co de Phone Number [facility] [address] [place] [address], [phone] * TROPONIN, QUANT (09/06/2023 7:37 PM SANDBLASTER GLASS) Pathologist [facility] TROPONIN I HIGH SENSITIVITY 21 0 - 78 ng/L 09/06/2023 8:14 PM [facility] 09/06/2023 7:37 PM SANDBLASTER GLASS Jennifer Angeles MD LABORATORY Final Result [facility] [address] [place] [address], [phone] * BASIC METABOLIC PANEL (09/06/2023 7:37 PM SANDBLASTER GLASS) [facility] SODIUM S/P/B 142 136 - 145 MMOL/L 09/06/2023 8:14 PM [facility] POTASSIUM S/P/B 3.6 3.5 - 5.1 MMOL/L 09/06/2023 8:14 PM [facility] CHLORIDE S/P/B 104 98 - 107 MMOL/L 09/06/2023 8:14 PM [facility] CO2 31.8 21.0 - 32.0 MMOL/L 09/06/2023 8:14 PM [facility] GLUCOSE 92 74 - 106 MG/DL 09/06/2023 8:14 PM [facility] BUN 12 7 - 18 MG/DL 09/06/2023 8:14 PM [facility] CREATININE S/P/B 1.01 0.70 - 1.30 MG/DL 09/06/2023 8:14 PM [facility] CALCIUM S/P/B 9.7 8.5 - 10.1 MG/DL 09/06/2023 8:14 PM [facility] ANION GAP 6.2 5.0 - 15.0 MMOL/L 09/06/2023 8:14 PM [facility] OSMOLALITY (CALC) 293 MOSM/KG 024 8:14 PM [facility] [place] Comment:REFERENCE RANGE NOT ESTABLISHED GFR ESTIMATE >90 >90 ML/MIN/1. 73 M2 09/06/2023 8:14 PM [facility] [place] GFR NOTES GFR REFERENCE S: 09/06/2023 8:14 PM [facility] [place] Comment: THE ESTIMATED GFR IS CALCULATED USING THE 2020 CKD-EPI EQUATION. THE FOLLOWING CATEGORIES FOR GRADING RENAL FUNCTION ARE RECOMMENDED BY THE INTERNATIONAL SOCIETY OF NEPHROLOGY (KDIGO 2012 CLINICAL PRACTICE GUIDELINE). G1,NORMAL OR HIGH: >89 ml/min/1.73 m2 G2,MILDLY DECREASED: 60-89 ml/min/1.73 m2 G3A,MILDLY TO MODERATELY DECREASED: 45-59 ml/min/1.73 m2 G3B,MODERATELY TO SEVERELY DECREASED: 30-44 ml/min/1.73 m2 G4,SEVERELY DECREASED: 15-29 ml/min/1.73 m2 G5,KIDNEY FAILURE: <15 ml/min/1.73 m2 09/06/2023 7:37 PM SANDBLASTER [place]ASS Jennifer Angeles MD LABORATORY Final Result [facility] [address] [place] [id number], [id number] * (ABNORMAL) CBC W/DIFF AUTOMATED (09/06/2023 7:37 PM SANDBLASTER GLASS) WBC 2.65(L) 4.00 - 10.80 x10'3/uL 09/06/2023 7:50 PM [facility] [place] RBC 4.86 4.50 - 6.10 x10'6/uL 09/06/2023 7:50 PM [facility] [place] [facility] HGB 15.3 13.0 - 18.0 G/DL 09/06/2023 7:50 PM [facility] [place] [facility] HCT 43.4 37.0 - 52.0 % 09/06/2023 7:50 PM [facility] [place] MCV 89.3 78.0 - 100.0 FL 09/06/2023 7:50 PM [facility] MCH 31.5(H) 27.0 - 31.0 PG 09/06/2023 7:50 PM [facility] MCHC 35.3 33.0 - 36.0 G/DL 09/06/2023 7:50 PM [facility] RDW 12.1 11.5 - 14.5 % 09/06/2023 7:50 PM [facility] PLT 273 150 - 350 x10'3/uL 09/06/2023 7:50 PM [facility] AND HOME LAB MPV 8.7 7.4 - 10.4 [place] 09/06/2023 7:50 PM [facility] ABS. NEUTROPHILS 1.14(L) 1.60 - 8.30 x10'3/uL 09/06/2023 8:30 PM [facility] ABS. NEUTROPHILS CALCULATED 1.14(L) 1.60 - 7.30 x10'3/uL 09/06/2023 8:30 PM [facility] ABS. LYMPHOCYTES 1.11 0.80 - 4.70 x10'3/uL 09/06/2023 8:30 PM [facility] ABS. MONOCYTES 0.19 0.00 - 1.50 x10'3/uL 09/06/2023 8:30 PM [facility] ABS. EOSINOPHILS 0.13 0.00 - 0.40 x10'3/uL 09/06/2023 8:30 PM [facility] ABS. BASOPHILS 0.08 0.00 - 0.20 x10'3/uL 09/06/2023 8:30 PM [facility] ABS. NUCLEATED RBC'S 0.00 0.0 x10'3/uL 09/06/2023 8:30 PM [facility] RBC MORPHOLOGY NORMAL 09/06/2023 8:30 PM [facility] PLT MORPH. NORMAL 09/06/2023 8:30 PM [facility] 09/06/2023 7:37 PM [facility] us Jennifer Angeles MD LABORATORY Final Result [facility] [address] [place] [address], [id number] * ECG 12 lead (09/06/2023 7:32 PM [facility]) 09/06/2023 7:32 PM [facility] Narrative [facility] - 09/08/2023 11:51 AM [facility] ?SJS-ED ? Test Date: ?2023-09-06 Pat Name: ? FELISA OLIVERA ?Department: ?? 70 ? Room: ? EXAM AA Gender: ? Male ? Hydrogen Operator: ?? Shazia JEAN-BAPTISTE DOB: ?1995 ? Requested By: JENNIFER ANGELES Order Number: [id number] ? Reading : ?? Luciano Rivera ? Measurements Intervals ?[place] ? Rate: ? 88 ? P: ?69 [place]: ? 129 ?QRS: ?81 QRSD: ? 110 ?T: ?55 QT: ? 331 ? QTc: ?401 ? Interpretive Statements SINUS RHYTHM WITH SINUS ARRHYTHMIA EARLY REPOLARIZATION VOLTAGE CRITERIA FOR LVH, MAY BE NORMAL VARIANT [facility]ASS Procedure Note Luciano Rivera MD - 09/08/2023 [facility] Test Date: 2023-09-06 Pat Name: FELISA OLIVERA Department: 70 Room: EXAM AA Gender: Male Hydrogen Operator: Shazia JEAN-BAPTISTE : 1995 Requested By: JENNIFER ANGELES Order Number: [id number] Ministerio MD: Luciano Rivera Measurements Intervals [place] Rate: 88 P: 69 [place]: 129 QRS: 81 QRSD: 110 T: 55 QT: 331 QTc: 401 Interpretive Statements SINUS RHYTHM WITH SINUS ARRHYTHMIA EARLY REPOLARIZATION VOLTAGE CRITERIA FOR LVH, MAY BE NORMAL VARIANT [facility] Jennifer Angeles MD ECG ORDERABLES Final Result [facility] documented in this encounter Visit Diagnoses Diagnosis Pre-syncope- Primary Syncope and collapse documented in this encounter Administered Medications Inactive Administered Medications - up to 3 most recent administrations Medication Order MAR Action Action Date Dose Rate Site normal saline 0.9 % flush 3-10 mL 3-10 mL, Intravenous, Every 8 hours, First dose on Wed09/06/23 at 1930, Until Discontinued Given 09/06/2023 7:38 PM [facility] 10 mLs normal saline 0.9 % flush 3-10 mL 3-10 mL, Intravenous, As needed, Line care, Starting on Wed09/06/23 at 1928, Until 09/07/23 at 0023 sodium chloride 0.9% bolus infusion 1,000 mL 1,000 mL, Intravenous, Administer over 60 Minutes, Once, 1 dose, On Wed09/06/23 at 1930 New Bag 09/06/2023 7:38 PM [facility] 1,000 mLs documented in this encounter Active and Recently Administered Medications Times are shown in [facility]. Scheduled Medication Order 09/04/2023 09/05/2023 09/06/2023 normal saline 0.9 % flush 3-10 mL 3-10 mL, Intravenous, Every 8 hours, First dose on Wed09/06/23 at 1930, Until Discontinued 1937 (Given - Provid er: ANGELICA Matthew) sodium chloride 0.9% bolus infusion 1,000 mL (COMPLETED) 1,000 mL, Intravenous, Administer over 60 Minutes, Once, 1 dose, On Wed09/06/23 at 1930 1938 (New Bag - Prov ider: ANGELICA Matthew)2014 (Infusion Stop Time - Provider: ANGELICA Matthew) PRN Medication Order 09/04/2023 09/05/2023 09/06/2023 normal saline 0.9 % flush 3-10 mL 3-10 mL, Intravenous, As needed, Line care, Starting on Wed09/06/23 at 1928, Until Wed09/07/23 at 0023 documented in this encounter Care Teams Truck Loader Relationship Specialty Start Date End Date Ivett Hong MD PCP - General FAMILY PRACTICE 05/20/22 documented as of this encounter
--- OUTSIDE RECORDS SUMMARY | 2024-08-09 16:47 | XMS_ITS | Encounter Summary ---
Author Organization [facility] Address [address] [place] [address]. 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 No / Unsure 05/20/2022 5:03 PM CDT documented as of this encounter Plan of Treatment Not on file documented as of this encounter Visit Diagnoses Not on filedocumented in this encounter Care Teams Flight Mechanic Relationship Specialty Start Date End Date Ivett Hong MD PCP - General FAMILY PRACTICE 05/20/22 documented as of this encounter
--- OUTSIDE RECORDS SUMMARY | 2024-08-09 16:47 | XMS_ITS | Encounter Summary ---
Author Organization [facility] Address [address] [place] [address]. [place] [address] [place] [address] Care Team Providers Care Simonizer Name Role Phone Ivett Hong MD Primary Care Provider [phone]- [phone] Reason for Visit * Reason Comments Abdominal Pain Vomiting Encounter Details Date Type Department Care Team (Late st Contact Info) Description 05/20/2022 5:57 PM CDT - 05/20/2022 6:41 PM CDT Emergency [facility] Emergency [address] [place], [place] [id number] Chad Tirado MD [address] [place] [id number] Abdominal Pain; Vomiting Discharge Disposition: Home or Self Care (Routine Discharge) Social History Tobacco Use Types Packs/Day Years Used Date Smoking Tobacco: Never Assessed Sex and Gender Information Value Date Recorded Sex Assigned at Not on file 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 No / Unsure 05/20/2022 5:03 PM CDT documented as of this encounter Last Filed Vital Signs Vital Sign Reading Time Taken Comments Blood Pressure 116/69 05/20/2022 5:04 PM CDT Pulse 76 05/20/2022 5:04 PM CDT Temperature 36.9 ??C (98.4 ??F) 05/20/2022 5:04 PM CD T Respiratory Rate 20 05/20/2022 5:04 PM CDT Oxygen Saturation 99% 05/20/2022 5:04 PM CDT Inhaled Oxygen Concentration - - Weight 61 kg (134 lb 7.7 oz) 05/20/2022 5:04 PM CDT Height 172.7 cm (5' 8 ) 05/20/2022 5:04 PM CDT Body Mass Index 20.45 05/20/2022 5:04 PM CDT documented in this encounter Discharge Instructions * Discharge Instructions* Nakul George MD - 05/20/2022 6:28 PM CDT Call your primary care physician and follow-up with them at their earliest available appointment. Zofran as prescribed on the bottle. Please return for any new, worsening, concerning symptoms. Pleasereturn for any of the following: You feel very weak, like you can???t stand up, and your skin is cool, clammy, or looks blue or de jesus. You have severe abdominal pain. You have chest pain or trouble breathing. You have signs of severe fluid loss, such as: No urine for more than 8 hours. You feel very lightheaded or like you are going to pass out. You feel weak like you are going to fall. You are not able to keep any fluids down. You develop early signs of fluid loss again, such as: Your urine is very dark colored. Your mouth is dry. You have muscle cramps. You have a lack of energy. You feel light-headed when you get up. * Attachments The following attachments cannot be sent through Care Everywhere. * Viral Gastroenteritis Discharge Instructions, Adult (Kazakh) documented in this encounter Medications at Time of Discharge hydrocodone-acetamin ophen 5-325 MG tabletIndications:Ac [place] Pain < 3 Day Supply Take 1 tablet by mouth every 6 (six) hours as needed. Indications: Acute Pain < 3 Day Supply 10 tablet 05/31/2019 ibuprofen 600 MG tablet Take 1 tablet (600 mg total) by mouth every 6 (six) hours as needed. 20 tablet 05/31/2019 3 ondansetron (ZOFRAN-ODT) 4 MG disintegrating tablet Take 1 tablet (4 mg total) by mouth every 8 (eight) hours as needed for Nausea. 15 tablet 05/20/2022 2 documented as of this encounter ED Notes * Nakul George MD - 05/20/2022 5:59 PM CDTSummary: abdominal pain Emergency Department Note Chief Complaint Chief Complaint Patient presents with ??? Abdominal Pain ??? Vomiting History of Present Illness Eric Martin is a 26-year-old male who presents to this ED with c/o of 1 day of nausea, vomiting, diarrhea. Patient reports yesterday started having diarrhea and vomiting. He reports since then he has had 4 total episodes of diarrhea that is none bloody. In addition has had 4 episodes of vomiting.In regards to the vomiting he reports that it is nonbilious and nonbloody. He also generally feels nauseous. Not taking anything for his symptoms. Worse when trying to eat. Reports no sick contacts, fever, chills, chest pain, shortness of breath, headache, vision changes, numbness, tingling, weakness, hematemesis, melena, hematochezia, bright red blood per rectum, focal abdominal pain. Medical History ALLERGIES: No Known Allergies MEDICATIONS: Prior to Admission medications Medication Sig Start Date End Date Taking? Authorizing Provider ondansetron (ZOFRAN-ODT) 4 MG disintegrating tablet Take 1 tablet (4 mg total) by mouth every 8 (eight) hours as needed for Nausea. 05/20/22 05/25/22 Yes Nakul George MD hydrocodone-acetaminophen 5-325 MG tablet Take 1 tablet by mouth every 6 (six) hours as needed. Indications: Acute Pain < 3 Day Supply 05/31/19 Karissa Marin NP ibuprofen 600 MG tablet Take 1 tablet (600 mg total) by mouth every 6 (six) hours as needed. 05/31/19 Karissa Marin NP PAST MEDICAL HISTORY: No past medical history on file. PAST SURGICAL HISTORY: No past surgical history on file. FAMILY HISTORY: No family history on file. SOCIAL HISTORY: Review of Systems Review of Systems Constitutional: Negative for chills, diaphoresis, fatigue and fever. HENT: Negative for congestion, ear pain, facial swelling, mouth sores, rhinorrhea, sinus pain and sore throat. Eyes: Negative for pain and redness. Respiratory: Negative for shortness of breath. Cardiovascular: Negative for chest pain, palpitations and leg swelling. Gastrointestinal: Positive for abdominal pain, diarrhea, nausea and vomiting. Negative for constipation. Endocrine: Negative for polyphagia and polyuria. Genitourinary: Negative for flank pain. Musculoskeletal: Negative for back pain, myalgias, neck pain and neck stiffness. Skin: Negative for pallor and rash. Neurological: Negative for weakness, light-headedness and numbness. Physical Exam Filed Vitals: 05/20/22 1704 BP: 116/69 Pulse: 76 Resp: 20 Temp: 98.4 ??F (36.9 ??C) TempSrc: Tympanic SpO2: 99% Weight: 61 kg (134 lb 7.7 oz) Height: 5' 8 (1.727 m) Physical Exam Constitutional: General: He is not in acute distress. Appearance: Normal appearance. He is normal weight. He is not ill-appearing, toxic-appearing or diaphoretic. HENT: Head: Normocephalic and atraumatic. Right Ear: External ear normal. Left Ear: External ear normal. Nose: Nose normal. No congestion or rhinorrhea. Mouth/Throat: Pharynx: Oropharynx is clear. No oropharyngeal exudate or posterior oropharyngeal erythema. Eyes: Extraocular Movements: Extraocular movements intact. Conjunctiva/sclera: Conjunctivae normal. Pupils: Pupils are equal, round, and reactive to light. Cardiovascular: Rate and Rhythm: Normal rate and regular rhythm. Pulses: Normal pulses. Heart sounds: Normal heart sounds. Pulmonary: Effort: Pulmonary effort is normal. No respiratory distress. Breath sounds: No wheezing. Abdominal: General: Abdomen is flat. Bowel sounds are normal. There is no distension. Palpations: Abdomen is soft. There is no mass. Tenderness: There is no abdominal tenderness. There is no right CVA tenderness, left CVA tenderness, guarding or rebound. Hernia: No hernia is present. Musculoskeletal: General: No swelling, tenderness, deformity or signs of injury. Normal range of motion. Cervical back: Normal range of motion and neck supple. Right lower leg: No edema. Left lower leg: No edema. Skin: General: Skin is warm and dry. Findings: No erythema or rash. Neurological: General: No focal deficit present. Mental Status: He is alert and oriented to person, place, and time. Mental status is at baseline. Cranial Nerves: No cranial nerve deficit. Sensory: No sensory deficit. Motor: No weakness. Coordination: Coordination normal. Gait: Gait normal. Psychiatric: Mood and Affect: Mood normal. Diagnostic Studies / Procedures Orders Placed This Encounter ??? ondansetron (ZOFRAN-ODT) disintegrating tablet 4 mg ??? ondansetron (ZOFRAN-ODT) 4 MG disintegrating tablet ELECTROCARDIOGRAMS: No results found for this visit on 05/20/22. LABORATORY STUDIES: No results found for this visit on 05/20/22. IMAGING STUDIES No orders to display ED Course / Medical Decision Making MDM Number of Diagnoses or Management Options Gastroenteritis Diagnosis management comments: 26-year-old male who presents to this ED with c/o of 1 day of nausea, vomiting, diarrhea. Patient reports yesterday started having diarrhea and vomiting. He reports since then he has had 4 total episodes of diarrhea that is none bloody. In addition has had 4 episodes of vomiting. In regards to the vomiting he reports that it is nonbilious and nonbloody. He also generally feels nauseous. Not taking anything for his symptoms. Worse when trying to eat. Reports no sick contacts, fever, chills, chest pain, shortness of breath, headache, vision changes, numbness, tingling, weakness, hematemesis, melena, hematochezia, bright red blood per rectum, focal abdominal pain. Vital signs were stable. She was afebrile. Physical exam shows no focal finding. His abdomen was nontender on exam. He has no masses, deformities, decreased or increased bowel sounds, lesions, lacerations, pain in epigastric or right upper quadrant. He is not having any McBurney point tenderness or Ny sign. He is not have any signs of hernia or other acute pathology warranting further evaluat ion with labs or imaging. Given his overall clinical picture patient likely has gastroenteritis. Byron treat here with Zofran and do a p.o. challenge. Patient reports he has already drank water patient will be discharged with Zofran and instructions to follow-up with his primary care provider. Patient is agreeable. all critical diagnoses were considered and appropriate labs/imaging were ordered based on patient's chief complaint. Patient was staffed with Dr. Tirado. Medications ondansetron (ZOFRAN-ODT) disintegrating tablet 4 mg (4 mg Oral Given 05/20/221821) Clinical Impression Gastroenteritis (Primary) Discharge Medication List as of 05/20/2022 6:36 PM START taking these medications Details ondansetron (ZOFRAN-ODT) 4 MG disintegrating tablet Take 1 tablet (4 mg total) by mouth every 8 (eight) hours as needed for Nausea., Starting Wed05/20/2022, Until Wed05/25/2022 at 2359, Eprescribe Class: Eprescribe Pharmacy: [facility]/pharmacy #[id number] - [address] ( #: [phone]) Disposition: Discharge Follow Up: Primary care physician Call Nakul George MD 05/20/2022 Cosigned by Chad Tirado MD at 05/24/2022 11:36 PM CDT Associated attestation - Chad Tirado MD - 05/24/2022 11:36 PM CDT Resident attestation I was physically present for the lugo or critical portions of the Evaluation and Management servicesperformed by the resident. I participated and discussed the case with the resident and agree with the findings and the plan as documented in the resident's note as amended/addended below. * Gallo Lares RN - 05/20/2022 5:03 PM CDT Pt arrives to triage with c/o abdominal pain, nausea, vomiting x1 day. documented in this encounter Plan of Treatment Not on file documented as of this encounter Visit Diagnoses Diagnosis Gastroenteritis- Primary Other and unspecified noninfectious gastroenteritis and colitis documented in this encounter Administered Medications Inactive Administered Medications - up to 3 most recent administrations Medication Order MAR Action Action Date Dose Rate Site ondansetron (ZOFRAN-ODT) disintegrating tablet 4 mg 4 mg, Oral, Once, 1 dose, On Wed05/20/22 at 1815 Given 05/20/2022 6:22 PM CDT 4 mg documented in this encounter Active and Recently Administered Medications Times are shown in CDT. Scheduled Medication Order 05/18/2022 05/19/2022 05/20/2022 ondansetron (ZOFRAN-ODT) disintegrating tablet 4 mg (COMPLETED) 4 mg, Oral, Once, 1 dose, On Wed05/20/22 at 1815 1822 (Given - Provid er: Augustina Gonzalez RN) documented in this encounter Care Teams Simonizer Relationship Specialty Start Date End Date Ivett Hong MD PCP - General FAMILY PRACTICE 05/20/22 documented as of this encounter
--- OUTSIDE RECORDS SUMMARY | 2024-08-09 16:47 | XMS_ITS | Encounter Summary ---
Author Organization [facility] Address [address] [place] [address]. [place] [address] [place] [address] Care Team Providers Care Charge Master Coordinator Name Role Phone Ivett Hong MD Primary Care Provider [phone]- [phone] Reason for Visit * Reason Comments Request Note (Return To Work) Encounter Details Date Type Department Care Team (Late st Contact Info) Description 10/28/2022 1:11 PM EXPLOSION WELDER - 10/28/2022 2:11 PM EXPLOSION WELDER Emergency 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 No / Unsure 10/28/2022 12:38 PM EXPLOSION WELDER documented as of this encounter Last Filed Vital Signs Vital Sign Reading Time Taken Comments Blood Pressure 132/86 10/28/2022 12:48 PM EXPLOSION WELDER Pulse 58 10/28/2022 12:48 PM EXPLOSION WELDER Temperature 36.7 ??C (98 ??F) 10/28/2022 12:48 PM EXPLOSION WELDER Respiratory Rate 16 10/28/2022 12:48 PM EXPLOSION WELDER Oxygen Saturation 98% 10/28/2022 12:48 PM EXPLOSION WELDER Inhaled Oxygen Concentration - - Weight 62.2 kg (137 lb 2 oz) 10/28/2022 12:48 PM EXPLOSION WELDER Height 170.2 cm (5' 7 ) 10/28/2022 12:48 PM EXPLOSION WELDER Body Mass Index 21.48 10/28/2022 12:48 PM EXPLOSION WELDER documented in this encounter Discharge Instructions * Discharge Instructions* Jose Daniel NP - 10/28/2022 1:17 PM EXPLOSION WELDER Follow up with Dr. Smith as previously instructed. OSION WELDER documented in this encounter Medications at Time [...] as of this encounter ED Notes * Jose Daniel NP - 10/28/2022 1:11 PM CST Chief Complaint Chief Complaint Patient presents with ??? Request Note (Return To Work) History of Present Illness History obtained from patient 26-year-old male presents to the emergency department requesting return to work note. Patient was evaluated here 2 weeks prior and diagnosed with boxer's fracture. Patient states he missed his initial appointment with hand surgeon and will not be seen until next week. Patient states he is wanting to return to work in a light-duty capacity and requests clearance for this. No other complaints endorsed by patient while here today. Medical History ALLERGIES: No Known Allergies MEDICATIONS: [...] of Systems Review of Systems Constitutional: Negative. HENT: Negative. Eyes: Negative. Respiratory: Negative. Cardiovascular: Negative. Gastrointestinal: Negative. Endocrine: Negative. Genitourinary: Negative. Musculoskeletal: Negative. Skin: Negative. Allergic/Immunologic: Negative. Neurological: Negative. Hematological: Negative. Psychiatric/Behavioral: Negative. Physical Exam Filed Vitals: 10/28/22 1248 BP: 132/86 Pulse: (!) 58 Resp: 16 Temp: 98 ??F (36.7 ??C) TempSrc: Oral SpO2: 98% Weight: 62.2 kg (137 lb 2 oz) Height: 5' 7 (1.702 m) Physical Exam Vitals and nursing note reviewed. Constitutional: General: He is not in acute distress. Appearance: Normal appearance. He is well-developed. He is not ill-appearing, toxic-appearing or diaphoretic. HENT: Head: Normocephalic and atraumatic. Mouth/Throat: Mouth: Mucous membranes are moist. Pharynx: Oropharynx is clear. No oropharyngeal exudate or posterior oropharyngeal erythema. Eyes: Conjunctiva/sclera: Conjunctivae normal. Pupils: Pupils are equal, round, and reactive to light. Neck: Thyroid: No thyromegaly. Vascular: No carotid bruit. Cardiovascular: Rate and Rhythm: Normal rate and regular rhythm. Pulses: Dorsalis pedis pulses are 2+ on the right side and 2+ on the left side. Heart sounds: Normal heart sounds. No murmur heard. No friction rub. No gallop. Pulmonary: Effort: Pulmonary effort is normal. No respiratory distress. Breath sounds: Normal breath sounds. No stridor. No wheezing, rhonchi or rales. Chest: Chest wall: No tenderness. Abdominal: General: Bowel sounds are normal. There is no distension. Palpations: Abdomen is soft. There is no mass. Tenderness: There is no abdominal tenderness. There is no right CVA tenderness, left CVA tenderness, guarding or rebound. Hernia: No hernia is present. Musculoskeletal: General: Swelling (Soft tissue swelling present over fifth metacarpal of left hand) present. No deformity. Cervical back: Neck supple. No rigidity or tenderness. Right lower leg: No edema. Lymphadenopathy: Cervical: No cervical adenopathy. Skin: General: Skin is warm and dry. Capillary Refill: Capillary refill takes less than 2 seconds. Neurological: General: No focal deficit present. Mental Status: He is alert and oriented to person, place, and time. Mental status is at baseline. Cranial Nerves: No cranial nerve deficit. Sensory: No sensory deficit. Motor: No weakness. Coordination: Coordination normal. Gait: Gait normal. Deep Tendon Reflexes: Reflexes normal. Psychiatric: Mood and Affect: Mood normal. Behavior: Behavior normal. Thought Content: Thought content normal. Judgment: Judgment normal. Diagnostic Studies / Procedures ELECTROCARDIOGRAMS: No results found for this visit on 10/28/22. LABORATORY STUDIES: No results found for this visit on 10/28/22. IMAGING STUDIES No orders to display ED Course / Medical Decision Making Medical Decision Making 26-year-old male presented here requesting return to work note. Patient recently evaluated here mehul injury with boxer's fracture. Instructed to follow-up with Dr. Jenkins with plastic surgery service however missed his initial appointment. Patient requesting light duty work note. Patient was given a note indicating he is to remain nonweightbearing with his left hand until cleared by Dr. Jenkins. Return to work exam: self-limited or minor problem Clinical Impression Return to work exam (Primary) Disposition: Discharge Lynnette Lawrence Unless otherwise documented, I provided definitive care for this patient Follow up: Dr. Smith as previously scheduled Jose Daniel NP 10/29/222102 Cosigned by Riaz Lawrence MD at 11/02/2022 7:35 AM CDT OSION WELDER * Kane Stevenson RN - 10/28/2022 12:39 PM CST PTsays he was seen here 2 weeks ago for a broken wrist and needs a note to release him to go back to regular working schedule. OSION WELDER documented in this encounter Plan of Treatment Not on file documented as of this encounter Visit Diagnoses Diagnosis Return to work exam- Primary Other specified examination documented in this encounter Care Teams Charge Master Coordinator Relationship Specialty Start Date End Date Ivett Hong MD PCP - General FAMILY PRACTICE 05/20/22 documented as of this encounter
--- OUTSIDE RECORDS SUMMARY | 2024-08-09 16:47 | XMS_ITS | Encounter Summary ---
Author Organization [facility] Address [facility]. [place], [place] [address] [place] [address] Care Team Providers Care Glove Sewer Name Role Phone Ivett Hong MD Primary Care Provider [phone]- [phone] Reason for Referral * Imaging (Routine) - Closed Specialty Diagnoses / Procedures Referred By Gavin perez Referred To Contact RADIOLOGY Diagnoses Recurrent syncope Procedures USE ECHOCARDIOGRAM Zoltan Barahona NP [address] [place] [address] Phone: tel: fax: Referral ID Status Reason Start Date Expiration Date V isits Requested Visits Authorized [id number] Closed Echocardiogr am 12/11/2023 02/09/2024 1 1 Reason for Visit * Imaging (Routine) - Closed Specialty Diagnoses / Procedures Referred By Gavin perez Referred To Contact RADIOLOGY Diagnoses Recurrent syncope Procedures USE ECHOCARDIOGRAM Zoltan Barahona NP [address] [place] [address] Phone: tel: fax: Referral ID Status Reason Start Date Expiration Date V isits Requested Visits Authorized [id number] Closed Echocardiogr am 12/11/2023 02/09/2024 1 1 Encounter Details Date Type Department Care Team (Latest Contact Info) Description 01/13/2024 2:47 PM CDT - 01/13/2024 11:59 PM CDT Hospital Encounter [facility] [address] [place] [address] Zoltan Barahona, SILK SPOOLER [address] [place] [id number] Discharge Disposition: Home or Self Care (Routine Discharge) Social History Tobacco Use Types Packs/Day Years Used Date Smoking Tobacco: Every Day Cigarettes Smokeless Tobacco: Never Sex and Gender Information Value Date Recorded Sex Assigned at Not on file 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 14 tablet 01/01/2024 01/15/2024 documented as of this encounter Plan of Treatment Not on file documented as of this encounter Procedures Procedure Name Priority Date/Time Associated Diagnosis Comments USE ECHOCARDIOGRAM Routine 01/13/2024 3: 15 PM CDT Recurrent syncope documented in this encounter Results * USE ECHOCARDIOGRAM (01/13/2024 3:15 PM CDT) Anatomical Region Laterality Modality Cardiac Echocardiogram 01/13/2024 2:50 PM CDT Narrative 01/14/2024 4:02 PM CDT ?Echocardiography Report Pat.Name: ??JAROD FELISA ?Pat.ID: ?[id number] ? St.Date: ?? 01/13/2024 ? Refer.MD: ??[id number] GABBI GUOSSICA M ? EWDPROV ?EWDPROV Exam Time: 2:50:00 PM ? Study Type:ECHO WITH CARDIAC DOPPLER COMP Height: ?67 in ? Weight: ?124 lb ? BSA: ? 1.65 m2 ?Age: ??1995,28Y ? Sex: ? M ? BP: ?132/89 ? HR: ?80 bpm ?Sonogrphr: Box, Auna RDCS ? Pat. Stat.:Outpatient ?CPT - 4: ?[id number] ? Reason for Study:Recurrent syncope Procedures: 2D, M-mode, Doppler, Color Flow ++++++++++++++++++++++++++++++++++++ SUMMARY: ++++++++++++++++++++++++++++++++++++ The left ventricular systolic function is normal. ??Wall motion appears normal in all segments. 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 ??The calculated ejection fraction is 61%. The right ventricular size is normal. ??Right ventricular systolic function is normal. Trace mitral regurgitation. Unable to reliably quantitate pulmonary systolic pressure. ++++++++++++++++++++++++++++++++++++ FINDINGS: ++++++++++++++++++++++++++++++++++++ LV: ? The left ventricular size is normal. The left ventricular ?systolic function is normal. The calculated ejection ?fraction is 61%. No concentric left ventricular hypertrophy. ?The average E/e' is normal at <8. Left ventricular diastolic ?function is normal. WM: ? Wall motion appears normal in all segments. LVOT: ? The left ventricular outflow tract size is normal. RV: ? The right ventricular size is normal. Right ventricular ?systolic function is normal. TAPSE = 30mm (<16 mm indicates ?systolic RV dysfunction). IVS: ?Intraventricular septum is normal. LA: ? The left atrial volume is normal ( less than 34 ml/M2). RA: ? The right atrial size is normal. IAS: ?Atrial septum appears intact. MERCEDES: ? No evidence of pericardial effusion. AO: ? The aortic root measures 2.7 cm. The proximal ascending ?aorta measures 2.6cm. PA: ? Estimated right atrial pressure of 3 mmHg. Unable to ?reliably quantitate pulmonary systolic pressure. SVn: ?Inferior vena cava shows >50% collapse with respiration ?consistent with normal right atrial pressure. AV: ? The aortic valve is trileaflet. There is no aortic stenosis. ?There is no evidence of aortic regurgitation. MV: ? The mitral valve is structurally normal. Trace mitral ?regurgitation. PV: ? The pulmonic valve is normal There is trace pulmonic ?regurgitation TV: ? The tricuspid valve appears structurally normal. There is ?trace tricuspid regurgitation. ++++++++++++++++++++++++++++++++++++ MEASUREMENTS: ++++++++++++++++++++++++++++++++++++ ?DOPPLER LVOT ?? LVOTpkPG ? 5 mmHg ?LVOTmnPG ? 2 mmHg LVOTpkVel ?107 cm/s (70-110) LVOT SV ? 58 ml ?? LVOT TVI ?18 cm ? AV Forward Flow AV TVI ?18.7 cm ?AV pkPG ?7 mmHg AV pkVel ? 130 cm/s (100-170) Area (TVI) ?3.08 cm2 ??(3-5) AV mnVel ?84.3 cm/s ?Area (Jaden) ?2.63 cm2 ??(3-5)* AV mnPG ?3 mmHg ? MV Forward Flow MV DeTm ?213 msec ?MV pkPG ?4 mmHg MVA P1/2t ? 3.55 cm2 ??(4-6)* ?? MV E/A ? 1.8 ? MV P1/2t ?62 msec (30-60)+* MV pkE ?94.6 cm/s (60-130) MV mnPG ?1 mmHg ?MV pkA ?53.6 cm/s Lat E' ?? Lat e ? 18.4 cm/s ? Lat E/E' ?? Lat E/e ?5.1 ? Med E' ?? Med e ? 12.1 cm/s ? Med E/E' ?? Med E/e ?7.8 ? Aortic Valve ?? Aortic Valve Ar ??1.87 ?Aortic Valve Ve ??0.82 ? AV DI ?? Value ?1 ? MARY ALICE (VTI) Index ?? Value ? 1.87 ? LV Mass 2D ?? Value ?148 g ? LV Mass [id number] ?? Value ? 89.7 g/m2 ? Right Ventricle ?? Right Ventricle ?15 cm/s ?2D Left Ventricle ?? LVIDd ? 4.67 cm ?? (3.6-5.2) LV EF(Bi-Plane) ??60.8 % ?(63-77)* LVIDs ? 2.96 cm ?? (2.3-3.9) LVPW ?? LVPWd ?0.9 cm ? Ventricular Septum ?? IVSd ?0.96 cm ? Aorta ?? Ao Rtd ?2.69 cm ?? (zsc 0.3) Ao Asc ?2.59 cm ?? (zsc 1.2) LVOT ?? LVOT ?2.02 cm ? Ratios ?? IVS LA Biplane LAVol I BP ?32 ml/m2 ? Right Ventricle ?? Right Ventricle ??3.34 cm ? Major [place] ?4.88 cm ?MMODE TA ?? Tricuspid Annul ??2.96 cm ? <Electronic Signature> 01/14/2024 04:02 PM Luciano Rivera M.D. Procedure Note Luciano Rivera MD - 01/14/2024 Echocardiography Report Pat.Name: FELISA OLIVERA Pat.ID: [id number] .Date: 01/13/2024 Refer.MD: [id number] GABBI Desouza EWDPROV EWDPROV Exam Time: 2:50:00 PM Study Type:ECHO WITH CARDIAC DOPPLER COMP Height: 67 in Weight: 124 lb BSA: 1.65 m2 Age: 5 1995,28Y Sex: M BP: 132/89 HR: 80 bpm Sonogrphr: Angel Ko [facility] Pat. Stat.:Outpatient CPT - 4: [id number] Reason for Study:Recurrent syncope Procedures: 2D, M-mode, Doppler, Color Flow ++++++++++++++++++++++++++++++++++++ SUMMARY: ++++++++++++++++++++++++++++++++++++ The left ventricular systolic function is normal. Wall motion appears normal in all segments. 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 The calculated ejection fraction is 61%. The right ventricular size is normal. Right ventricular systolic function is normal. Trace mitral regurgitation. Unable to reliably quantitate pulmonary systolic pressure. ++++++++++++++++++++++++++++++++++++ FINDINGS: ++++++++++++++++++++++++++++++++++++ LV: The left ventricular size is normal. The left ventricular systolic function is normal. The calculated ejection fraction is 61%. No concentric left ventricular hypertrophy. The average E/e' is normal at <8. Left ventricular diastolic function is normal. WM: Wall motion appears normal in all segments. LVOT: The left ventricular outflow tract size is normal. RV: The right ventricular size is normal. Right ventricular systolic function is normal. TAPSE = 30mm (<16 mm indicates systolic RV dysfunction). IVS: Intraventricular septum is normal. LA: The left atrial volume is normal ( less than 34 ml/M2). RA: The right atrial size is normal. IAS: Atrial septum appears intact. MERCEDES: No evidence of pericardial effusion. AO: The aortic root measures 2.7 cm. The proximal ascending aorta measures 2.6cm. PA: Estimated right atrial pressure of 3 mmHg. Unable to reliably quantitate pulmonary systolic pressure. SVn: Inferior vena cava shows >50% collapse with respiration consistent with normal right atrial pressure. AV: The aortic valve is trileaflet. There is no aortic stenosis. There is no evidence of aortic regurgitation. MV: The mitral valve is structurally normal. Trace mitral regurgitation. PV: The pulmonic valve is normal There is trace pulmonic regurgitation TV: The tricuspid valve appears structurally normal. There is trace tricuspid regurgitation. ++++++++++++++++++++++++++++++++++++ MEASUREMENTS: ++++++++++++++++++++++++++++++++++++ DOPPLER LVOT LVOTpkPG 5 mmHg LVOTmnPG 2 mmHg LVOTpkVel 107 cm/s (70-110) LVOT SV 58 ml LVOT TVI 18 cm AV Forward Flow AV TVI 18.7 cm AV pkPG 7 mmHg AV pkVel 130 cm/s (100-170) Area (TVI) 3.08 cm2 (3-5) AV mnVel 84.3 cm/s Area (Jaden) 2.63 cm2 (3-5)* AV mnPG 3 mmHg MV Forward Flow MV DeTm 213 msec MV pkPG 4 mmHg MVA P1/2t 3.55 cm2 (4-6)* MV E/A 1.8 MV P1/2t 62 msec (30-60)+* MV pkE 94.6 cm/s (60-130) MV mnPG 1 mmHg MV pkA 53.6 cm/s Lat E' Lat e 18.4 cm/s Lat E/E' Lat E/e 5.1 Med E' Med e 12.1 cm/s Med E/E' Med E/e 7.8 Aortic Valve Aortic Valve Ar 1.87 Aortic Valve Ve 0.82 AV DI Value 1 MARY ALICE (VTI) Index Value 1.87 LV Mass 2D Value 148 g LV Mass [id number] Value 89.7 g/m2 Right Ventricle Right Ventricle 15 cm/s 2D Left Ventricle LVIDd 4.67 cm (3.6-5.2) LV EF(Bi-Plane) 60.8 % (63-77)* LVIDs 2.96 cm (2.3-3.9) LVPW LVPWd 0.9 cm Ventricular Septum IVSd 0.96 cm Aorta Ao Rtd 2.69 cm (zsc 0.3) Ao Asc 2.59 cm (zsc 1.2) LVOT LVOT 2.02 cm Ratios IVS LA Biplane LAVol I BP 32 ml/m2 Right Ventricle Right Ventricle 3.34 cm Major [place] 4.88 cm MMODE TA Tricuspid Annul 2.96 cm <Electronic Signature> 01/14/2024 04:02 PM Luciano Rivera M.D. Zoltan Barahona SILK SPOOLER ECHO Final Result documented in this encounter Visit Diagnoses Diagnosis Recurrent syncope documented in this encounter Care Teams Glove Sewer Relationship Specialty Start Date End Date Ivett Hong MD PCP - General FAMILY PRACTICE 05/20/22 documented as of this encounter
--- OUTSIDE RECORDS SUMMARY | 2024-08-09 16:47 | XMS_ITS | Clinical Summary ---
Author Organization [facility] Address [facility] [place] [address] [place] [address] Care Team Providers Care Occupational Medicine Specialist Name Role Phone Ivett Hong MD Primary Care Provider +1- [phone] Allergies No known active allergies Medications hydrocodone-althea taminophen 5-325 MG tabletIndicatio ns:Acute Pain < 3 Day Supply Take 1 tablet by mouth every 6 (six) hours as needed. Indications: Acute Pain < 3 Day Supply 10 tablet 05/31/2019 Active HYDROcodone-althea taminophen (NORCO) 5-325 MG tabletIndicatio ns:Acute Pain < 3 Day Supply Take 1-2 tablets by mouth every 6 (six) hours as needed. Indications: Acute Pain < 3 Day Supply 16 tablet 10/17/2022 Active diclofenac EC (VOLTAREN) 75 MG tablet Take 1 tablet (75 mg total) by mouth every 12 (twelve) hours as needed (pain). 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 Gender Identity Not on file Sexual Orientation Not on file Last Filed Vital Signs Vital Sign Reading Time Taken Comments Blood Pressure 132/89 01/01/2024 6:35 PM CDT Pulse 71 01/01/2024 7:35 PM CDT Temperature 36.8 ??C (98.2 ??F) 01/01/2024 2:23 PM CD T Respiratory Rate 16 01/01/2024 7:35 PM CDT Oxygen Saturation 97% 01/01/2024 7:35 PM CDT Inhaled Oxygen Concentration - - Weight 56.6 kg (124 lb 12.5 oz) 01/01/2024 2:23 PM CDT Height 170.2 cm (5' 7 ) 01/01/2024 2:23 PM CDT Body Mass Index 19.54 01/01/2024 2:23 PM CDT Plan of Treatment Health Maintenance Due Date Last Done Comments Annual Physical 12/04/1999 Pneumococcal Vaccine: Pediatrics (0 to 5 Years) and At-Risk Patients (6 to 64 Years) (1 of 2 - PCV) 2002 Hepatitis C 2014 DTaP, Tdap and Td Vaccines (3 - Tdap) 12/04/2015 04/28/2002, 10/20/1999, 04/03/1997, Additional history exists Hepatitis B Vaccines (1 of 3 - 19+ 3-dose series) 12/04/2015 COVID-19 Vaccine ( season) 2024 Influenza Adult (#1) 2024 Meningococcal Vaccine Aged Out 11/19/2008 No lei rusty eligible based on patient's age to complete this topic HPV Vaccines Aged Out No longer eligi ble based on patient's age to complete this topic RSV Immunizations Under 20 Months Aged Out No longer eligible based on patient's age to complete this topic Insurance [facility] Care Teams Occupational Medicine Specialist Relationship Specialty Start Date End Date Ivett Hong MD PCP - General FAMILY PRACTICE 05/20/22
--- OUTSIDE RECORDS SUMMARY | 2024-08-09 16:47 | XMS_ITS | Encounter Summary ---
Author Organization [facility] Address [address] [place] [address]. 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 No / Unsure 10/11/2020 10:01 PM RECORDS SPECIALIST documented as of this encounter Plan of Treatment Not on file documented as of this encounter Visit Diagnoses Not on filedocumented in this encounter Care Teams Photovoltaic Installer Relationship Specialty Start Date End Date None, Provider, PCP - General 05/31/19 05/19/22 documented as of this encounter
--- OUTSIDE RECORDS SUMMARY | 2024-08-09 16:47 | XMS_ITS | Encounter Summary ---
Author Organization [facility] Address [facility] [place] [address] [place] [address] Care Team Providers Care Security Assurance Specialist Name Role Phone None, Provider MD Primary Care Provider Unavaila ble Reason for Referral * (Routine) - Closed Specialty Diagnoses / Procedures Referred By Gavin perez Referred To Contact Procedures LACERATION REPAIR Trevon Puri MD Referral ID Status Reason Start Date Expiration Date Visits Re quested Visits Authorized [id number] Closed 10/12/2020 11/09/2021 1 1 STAFF FITTER * Imaging (Emergency) - Closed Specialty Diagnoses / Procedures Referred By Gavin perez Referred To Contact RADIOLOGY Procedures CT HEAD WO CON Trevon Puri MD Referral ID Status Reason Start Date Expiration Date Visits Re quested Visits Authorized [id number] Closed 10/11/2020 11/08/2021 1 1 STAFF FITTER Reason for Visit * Reason Comments Laceration Head Injury With Loc Encounter Details Date Type Department Care Team (Late st Contact Info) Description 10/11/2020 10:15 PM SET STAFF FITTER - 10/12/2020 12:54 AM SET STAFF FITTER Emergency [facility] [address] [place] [address] Shonna Morales DO [address] [place] [address] [id number] Laceration; Head Injury With Loc Discharge Disposition: Home or Self Care (Routine Discharge) Social History Tobacco Use Types Packs/Day Years Used Date Smoking Tobacco: Never Assessed Sex and Gender Information Value Date Recorded Sex Assigned at Not on file Legal Sex Male 10:01 PM SET STAFF FITTER Gender Identity Not on file Sexual Orientation Not on file COVID-19 Exposure Response Date Recorded In the last month, have you been in contact with someone who was confirmed or suspected to have Coronavirus / COVID-19? No / Unsure 10/11/2020 10:01 PM SET STAFF FITTER documented as of this encounter Last Filed Vital Signs Vital Sign Reading Time Taken Comments Blood Pressure 128/80 10/11/2020 10:06 PM SET STAFF FITTER Pulse 61 10/11/2020 10:06 PM SET STAFF FITTER Temperature 36.8 ??C (98.2 ??F) 10/11/2020 1 0:06 PM SET STAFF FITTER Respiratory Rate 18 10/11/2020 10:0 6 PM SET STAFF FITTER Oxygen Saturation 100% 10/11/2020 10: 06 PM SET STAFF FITTER Inhaled Oxygen Concentration - - Weight 62.9 kg (138 lb 10.7 oz) 021 10:06 PM SET STAFF FITTER Height 172.7 cm (5' 8 ) 10/11/2020 10:0 6 PM SET STAFF FITTER Body Mass Index 21.08 10/11/2020 10:06 PM SET STAFF FITTER documented in this encounter Discharge Instructions * Discharge Instructions* Trevon Puri MD - 10/12/2020 12:47 AM SET STAFF FITTER Your stitches will dissolve on their own. Follow up with your regular doctor. STAFF FITTER * Attachments The following attachments cannot be sent through Care Everywhere. * Laceration Repair (Chilean) documented in this encounter Medications at Time [...] as of this encounter ED Notes * Trevon Puri MD - 10/11/2020 11:15 PM CSTAssociated Order(s): Lac Repair Chief Complaint Chief Complaint Patient presents with ??? Laceration ??? 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 Patient woke back up with a headache and dizziness. States he has a laceration to his chin as well. Denies nausea, vomiting, focal numbness/weakness/tingling. No blood thinners. Medical History ALLERGIES: No Known Allergies MEDICATIONS: [...] HISTORY: No past medical history on file. No medical problems PAST SURGICAL HISTORY: No past surgical history on file. No prior surgeries FAMILY HISTORY: No family history on file. SOCIAL HISTORY: Social History Tobacco Use ??? Smoking status: Not on file Substance Use Topics ??? Alcohol use: Not on file ??? Drug use: Not on file Review of Systems Review of Systems Constitutional: Negative for chills and fever. HENT: Negative for congestion and rhinorrhea. Eyes: Negative for discharge and itching. Respiratory: Negative for cough and shortness of breath. Cardiovascular: Negative for chest pain and leg swelling. Gastrointestinal: Negative for diarrhea and vomiting. Genitourinary: Negative for decreased urine volume and difficulty urinating. Musculoskeletal: Negative for back pain and neck pain. Skin: Positive for wound. Negative for rash. Neurological: Positive for headaches. Negative for syncope and light-headedness. Physical Exam Filed Vitals: 10/11/20 2206 BP: 128/80 Pulse: 61 Resp: 18 Temp: 98.2 ??F (36.8 ??C) TempSrc: Oral SpO2: 100% Weight: 62.9 kg (138 lb 10.7 oz) Height: 5' 8 (1.727 m) Physical Exam Constitutional: General: He is not in acute distress. Appearance: Normal appearance. He is obese. He is not ill-appearing. HENT: Head: Normocephalic. Comments: Left chin with 2.5cm v-shped laceration, bleeding well controlled. No bony point tenderness over the frontal, maxillary, or mandibular regions. Mouth/Throat: Mouth: Mucous membranes are moist. Pharynx: Oropharynx is clear. Comments: No dental or intraoral injuries. Eyes: Extraocular Movements: Extraocular movements intact. Conjunctiva/sclera: Conjunctivae normal. Pupils: Pupils are equal, round, and reactive to light. Neck: Musculoskeletal: Normal range of motion and neck supple. Cardiovascular: Rate and Rhythm: Normal rate and regular rhythm. Pulses: Normal pulses. Heart sounds: Normal heart sounds. Pulmonary: Effort: Pulmonary effort is normal. No respiratory distress. Breath sounds: Normal breath sounds. No wheezing, rhonchi or rales. Abdominal: General: Abdomen is flat. Bowel sounds are normal. Palpations: Abdomen is soft. Tenderness: There is no abdominal tenderness. Musculoskeletal: Right lower leg: No edema. Left lower leg: No edema. Skin: General: Skin is warm and dry. Neurological: General: No focal deficit present. Mental Status: He is alert and oriented to person, place, and time. Comments: 5/5 strength in all extremities Sensation grossly intact in all 4 extremities Ambulates well without ataxia CN 2-12 intact Psychiatric: Mood and Affect: Mood normal. Behavior: Behavior normal. Diagnostic Studies / Procedures ELECTROCARDIOGRAMS: No results found for this visit on 10/11/20. LABORATORY STUDIES: No results found for this visit on 10/11/20. IMAGING STUDIES CT HEAD WO CON Final Result by User, [id number] (10/11 6103) Examination: CT HEAD WO CON Exam time: 10/11/2020 11:24 PM Clinical history: Trauma Comparison: None Technique: Axial images obtained from level of foramen magnum to the vertex without contrast using low-dose CT technique. Findings: Ventricles normal in size morphology. Extra-axial CSF spaces are within normal limits. No evidence of acute intracranial hemorrhage. No evidence of a focal intracranial mass lesion. No abnormal extra-axial fluid collection. There is no acute regional edema, mass effect nor midline shift. The sella and CP angle regions are unremarkable. Mastoid air cells are clear bilaterally. Paranasal sinuses are clear. No evidence of skull fracture. IMPRESSION: 1) No significant abnormality is demonstrated. Referred By: TREVON PURI Interpreted By: Pascual Marshall MD, 10/11/2020 11:44 PM Lac Repair Date/Time: 10/12/2020 12:48 AM Performed by: Trevon Puri MD Authorized by: Shonna Morales DO Consent: Consent obtained: Verbal Consent given by: Patient Risks discussed: Pain, infection and poor cosmetic result Alternatives discussed: No treatment Anesthesia (see MAR for exact dosages): Anesthesia method: Local infiltration Local anesthetic: Lidocaine 1% w/o epi Laceration details: Location: Face Face location: Chin Length (cm): 2.5 Depth (mm): 5 Repair type: Repair type: Simple Exploration: Contaminated: no Treatment: Area cleansed with: Shur-Clens and soap and water Amount of cleaning: Extensive Irrigation method: Pressure wash Skin repair: Repair method: Sutures Suture size: 5-0 Suture material: Fast-absorbing gut Suture technique: Simple interrupted Number of sutures: 5 Post-procedure details: Dressing: Open (no dressing) Patient tolerance of procedure: Tolerated well, no immediate complications ED Course / Medical Decision Making Orders Placed This Encounter ??? LACERATION REPAIR This order was created via procedure documentation Standing Status: Standing Number of Occurrences: 1 Order Specific Question: Release to patient Answer: System release ??? Dermabond Adhesve Chisl Tip Standing Status: Standing Number of Occurrences: 1 ??? CT HEAD WO CON Standing Status: Standing Number of Occurrences: 1 Order Specific Question: Release to patient Answer: System release ??? 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 Patient notes dizziness and headache. Will obtain head CT and repair laceration with sutures. [EJ] Sat Oct 12, 2020 0054 Patient tolerated laceration repair well. Discussed normal head CT results. Patient will d/c home with PCP follow up. He is in agreement. [EJ] ED Course User Index [EJ] Trevon Puri MD Clinical Impression Head injury (Primary) Fall Chin laceration Concussion Disposition: Discharge TREVON PURI MD 10/12/20 1:30 AM Cosigned by Shonna Morales DO at 10/12/2020 4:20 PM SET STAFF FITTER STAFF FITTER STAFF FITTER Associated attestation - Shonna Morales DO - 10/12/2020 4:20 PM SET STAFF FITTER Teaching Physician - I, SHONNA MORALES DO, performed a History and Physical examination of thepatient and discussed the management with the resident. I reviewed the Resident's note and agree with the findings and plan of care, except as I have documented. * Shonna Ty RN - 10/11/2020 10:02 PM CST Patient presents after slipping and falling onto face at work. Laceration noted to chin; bleeding controlled at this time. Patient states positive LOC for a few minutes . STAFF FITTER documented in this encounter Plan of Treatment Not on file documented as of this encounter Procedures Procedure Name Priority Date/Time Associated Diagnosis Comments CT HEAD WO CON STAT 10/11/2020 11:33 PM SET STAFF FITTER LACERATION REPAIR Routine 10/11/2020 11: 15 PM SET STAFF FITTER documented in this encounter Results * CT HEAD WO CON (10/11/2020 11:33 PM SET STAFF FITTER) Anatomical Region Laterality Modality Head Computed Tomogra phy 10/11/2020 11:4 4 PM SET STAFF FITTER Impressions 10/11/2020 11:48 PM SET STAFF FITTER IMPRESSION: 1) No significant abnormality is demonstrated. Referred By: TREVON PURI Interpreted By: Pascual Marshall MD, 10/11/2020 11:44 PM Narrative 10/11/2020 11:48 PM SET STAFF FITTER Examination: CT HEAD WO CON Exam time: 10/11/2020 11:24 PM Clinical history: Trauma Comparison: None Technique: Axial images obtained from level of foramen magnum to the vertex without contrast using low-dose CT technique. Findings: Ventricles normal in size morphology. Extra-axial CSF spaces are within normal limits. No evidence of acute intracranial hemorrhage. No evidence of a focal intracranial mass lesion. No abnormal extra-axial fluid collection. There is no acute regional edema, mass effect nor midline shift. The sella and CP angle regions are unremarkable. Mastoid air cells are clear bilaterally. Paranasal sinuses are clear. No evidence of skull fracture. Procedure Note Pascual Marshall MD - 10/11/2020 Examination: CT HEAD WO CON Exam time: 10/11/2020 11:24 PM Clinical history: Trauma Comparison: None Technique: Axial images obtained from level of foramen magnum to thevertex without contrast using low-dose CT technique. Findings: Ventricles normal in size morphology. Extra-axial CSF spacesare within normal limits. No evidence of acute intracranial hemorrhage. No evidence of a focal intracranial mass lesion. No abnormal extra-axial fluid collection. There is no acute regional edema, mass effect nor midline shift. Thesella and CP angle regions are unremarkable. Mastoid air cells are clear bilaterally. Paranasal sinuses are clear. No evidence of skull fracture. IMPRESSION: 1) No significant abnormality is demonstrated. Referred By: TREVON PURI Interpreted By: Pascual Marshall MD, 10/11/2020 11:44 PM us Trevon Puri MD CT Final Result * Lac Repair (10/11/2020 11:15 PM SET STAFF FITTER) Shonna Beasley DO - 10/11/2020 11:15 PM SET STAFF FITTER Trevon Puri MD ? 10/12/2020 ??1:31 AM Lac Repair Date/Time: 10/12/2020 12:48 AM Performed by: Trevon Puri MD Authorized by: Shonna Morales, DO Consent: ??Consent obtained: ??Verbal ??Consent given by: ??Patient ??Risks discussed: ??Pain, infection and poor cosmetic result ??Alternatives discussed: ??No treatment Anesthesia (see MAR for exact dosages): ??Anesthesia method: ??Local infiltration ??Local anesthetic: ??Lidocaine 1% w/o epi Laceration details: ??Location: ??Face ??Face location: ??Chin ??Length (cm): ??2.5 ??Depth (mm): ??5 Repair type: ??Repair type: ??Simple Exploration: ??Contaminated: no ?? Treatment: ??Area cleansed with: ??Shur-Clens and soap and water ??Amount of cleaning: ??Extensive ??Irrigation method: ??Pressure wash Skin repair: ??Repair method: ??Sutures ??Suture size: ??5-0 ??Suture material: ??Fast-absorbing gut ??Suture technique: ??Simple interrupted ??Number of sutures: ??5 Post-procedure details: ??Dressing: ??Open (no dressing) ??Patient tolerance of procedure: ??Tolerated well, no immediate complications Shonna Morales DO PROCEDURE/MINOR SURGICAL O RDERABLES Final Result documented in this encounter Visit Diagnoses Diagnosis Head injury- Primary Head injury, unspecified Fall Unspecified fall Chin laceration Open wound of jaw, without mention of complication Concussion Concussion, unspecified documented in this encounter Administered Medications Inactive Administered Medications - up to 3 most recent administrations Medication Order MAR Action Action Date Dose Rate Site lidocaine (XYLOCAINE) 1 % injection SOLN 10 mL 10 mL, Intradermal, Once, 1 dose, On 10/12/20 at 0015 Given by Other 10/12/2020 12:54 AM SET STAFF FITTER 10 mLs Face documented in this encounter Active and Recently Administered Medications Times are shown in SET STAFF FITTER. Scheduled Medication Order 10/10/2020 10/11/2020 10/12/2020 lidocaine (XYLOCAINE) 1 % injection SOLN 10 mL (COMPLETED) 10 mL, Intradermal, Once, 1 dose, On 10/12/20 at 0015 0054 (Given by Other - Provider: Shonna Ty RN) documented in this encounter Care Teams Security Assurance Specialist Relationship Specialty Start Date End Date None, Provider, PCP - General 05/31/19 05/19/22 documented as of this encounter
--- OUTSIDE RECORDS SUMMARY | 2024-08-09 16:47 | XMS_ITS | Encounter Summary ---
Author Organization [facility] Address [address] [place] [address]. 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
--- OUTSIDE RECORDS SUMMARY | 2024-08-09 16:47 | XMS_ITS | Encounter Summary ---
Author Organization [facility] Address [address] [place] [address]. 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 No / Unsure 05/13/2020 9:08 AM CDT documented as of this encounter Plan of Treatment Not on file documented as of this encounter Visit Diagnoses Not on filedocumented in this encounter Additional Health Concerns Infection Onset Date Last Indicated Resolved Time COVID-19 Rule Out 05/13/2020 05/13/2020 07/12/2020 12:34 AM WAREHOUSE PACKAGING SUPERVISOR documented as of this encounter Care Teams Commodities Trader Relationship Specialty Start Date End Date None, Provider, PCP - General 05/31/19 05/19/22 documented as of this encounter
--- OUTSIDE RECORDS SUMMARY | 2024-08-09 16:47 | XMS_ITS | Encounter Summary ---
Author Organization [facility] Address [facility] [place], [place] [address] [place] [address] Care Team Providers Care Leather Softener Name Role Phone Ivett Hong MD Primary Care Provider [phone]- [phone] Reason for Referral * Imaging (Routine) - Closed Specialty Diagnoses / Procedures Referred By Gavin t Referred To Contact RADIOLOGY Diagnoses Mass of chest wall, right Procedures US SOFT TISS CHEST WALL OR UPR BACK Kelly Cordova MD [address] [place] [address] Phone: tel: fax: Referral ID Status Reason Start Date Expiration Date V isits Requested Visits Authorized [id number] Closed Ultrasound 03/08/2024 03/08/2025 1 1 Reason for Visit * Imaging (Routine) - Closed Specialty Diagnoses / Procedures Referred By Gavin perez Referred To Contact RADIOLOGY Diagnoses Mass of chest wall, right Procedures US SOFT TISS CHEST WALL OR UPR BACK Kelly Cordova MD [address] [place] [address] Phone: tel: fax: Referral ID Status Reason Start Date Expiration Date V isits Requested Visits Authorized [id number] Closed Ultrasound 03/08/2024 03/08/2025 1 1 Encounter Details Date Type Department Care Team (Latest Contact Info) Description 03/22/2024 1:30 PM CDT - 03/22/2024 11:59 PM CDT Hospital Encounter [facility] - [address] [place] [address] Kelly Cordova MD [address] [place] [id number] Discharge Disposition: Home or Self Care (Routine Discharge) Social History Tobacco Use Types Packs/Day Years Used Date Smoking Tobacco: Every Day Cigarettes Smokeless Tobacco: Never Sex and Gender Information Value Date Recorded Sex Assigned at Not on file 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 No sonographic abnormality in the right anterior abdominal wall soft tissues. 2. Incidental right hepatic solid 6.5 cm mass and cyst as detailed above. Especially given patient's progressive symptoms if not already performed at outside institution as previously recommended on CTA abdomen pelvis study from 01/01/2020, dedicated hepatic protocol MRI abdomen or CT now warranted for more complete assessment. AHIP Ordered By: KELLY CORDOVA Interpreted By: Shirin Youssef MD, 03/23/2024 6:50 AM Narrative 03/23/2024 6:56 AM CDT EXAMINATION: SUPERFICIAL SOFT TISSUE ULTRASOUND Exam Date: 03/22/2024 1:30 PM INDICATION: Right abdominal wall palpable lump for 4 months with associated pain and progressively enlarging. TECHNIQUE: Static sonographic grayscale images obtained and supplemented with Doppler. COMPARISON: None FINDINGS: Targeted ultrasound in the right upper anterior abdominal wall palpable area of concern demonstrates no significant abnormality. However incidental note made of a hepatic mildly hyperechoic-isoechoic indeterminant lesion spanning up to 6.5 cm within the right hepatic lobe best seen on submitted cine clips. This corresponds with the finding noted on CTA abdomen pelvis study from 01/01/2024. Additional right hepatic cyst identified measuring 1.1 x 0.9 x 0.9 cm. Limited evaluation of these on this nondedicated study. Procedure Note Shirin Youssef MD - 03/23/2024 EXAMINATION: SUPERFICIAL SOFT TISSUE ULTRASOUND Exam Date: 03/22/2024 1:30 PM INDICATION: Right abdominal wall palpable lump for 4 months withassociated pain and progressively enlarging. TECHNIQUE: Static sonographic grayscale images obtained and supplementedwith Doppler. COMPARISON: None FINDINGS: Targeted ultrasound in the right upper anterior abdominal wallpalpable area of concern demonstrates no significant abnormality. However incidental note made of a hepatic mildly hyperechoic- isoechoicindeterminant lesion spanning up to 6.5 cm within the right hepatic lobebest seen on submitted cine clips. This corresponds with the finding notedon CTA abdomen pelvis study from 01/01/2024. Additional right hepatic cystidentified measuring 1.1 x 0.9 x 0.9 cm. Limited evaluation of these onthis nondedicated study. IMPRESSION: 1. No sonographic abnormality in the right anterior abdominal wall softtissues. 2. Incidental right hepatic solid 6.5 cm mass and cyst as detailedabove. Especially given patient's progressive symptoms if not already performedat outside institution as previously recommended on CTA abdomen pelvisstudy from 01/01/2020, dedicated hepatic protocol MRI abdomen or CT nowwarranted for more complete assessment. AHIP Ordered By: KELLY CORDOVA Interpreted By: Shirin Youssef MD, 03/23/2024 6:50 AM us Kelly Cordova MD ULTRASOUND Final Result documented in this encounter Visit Diagnoses Diagnosis Mass of chest wall, right documented in this encounter Care Teams Leather Softener Relationship Specialty Start Date End Date Ivett Hong MD PCP - General FAMILY PRACTICE 05/20/22 documented as of this encounter
--- OUTSIDE RECORDS SUMMARY | 2024-08-09 16:47 | XMS_ITS | Encounter Summary ---
Author Organization [facility] Address [address] [place] [address]. [place], [place] [id number] [place] [address] Care Team Providers Care Home Sales Consultant Name Role Phone Ivett Hong MD Primary Care Provider [phone]- [phone] Reason for Referral * Imaging (Urgent) - New Request Specialty Diagnoses / Procedures Referred By Contac t Referred To Contact RADIOLOGY Procedures CTA CHEST+CT ABD+PEL W CON Chiqui Dorado NP [address] [place] [address] Phone: tel: fax: Referral ID Status Reason Start Date Expiration Date V isits Requested Visits Authorized [id number] New Request 01/01/2024 12/31/2024 1 1 * Imaging (Emergency) - New Request Specialty Diagnoses / Procedures Referred By Contac t Referred To Contact RADIOLOGY Procedures US ABD LIMITED Chiqui Dorado NP [address] [place] [address] Phone: tel: fax: Referral ID Status Reason Start Date Expiration Date V isits Requested Visits Authorized [id number] New Request 01/01/2024 12/31/2024 1 1 Reason for Visit * Reason Comments Chest Pain Encounter Details Date Type Department Care Team (Late st Contact Info) Description 01/01/2024 2:28 PM CDT - 01/01/2024 7:[address] [facility] Emergency [address] [place] [address] Chiqui Dorado, TINO [address] [place], [place] [id number] Chest Pain Discharge Disposition: Home or Self Care (Routine Discharge) Social History Tobacco Use Types Packs/Day Years Used Date Smoking Tobacco: Every Day Cigarettes Smokeless Tobacco: Never Tobacco Cessation:Ready to Q uit: Not Asked; Counseling Given: Not Answered Sex and Gender Information Value Date Recorded Sex Assigned at Not on file Legal Sex Male 10:01 PM [employer] [address] [employer] Gender Identity Not on file Sexual Orientation [...] Mass Index 19.54 01/01/2024 2:23 PM CDT documented in this encounter Discharge Instructions * Discharge Instructions* Jaimie Varner APRN - 01/01/2024 7:30 PM CDT You have an incidental finding of 4 x 6 x 6 cm indeterminate liver lesion. Recommend routine follow-up MRI abdomen with and without contrast according to liver mass protocol for further characterization. * Attachments The following attachments cannot be sent through Care Everywhere. * Gastritis ED (Sinhala) documented in this encounter Medications at Time [...] 01/01/2024 01/15/2024 documented as of this encounter ED Notes * Chiqui Goldstein NP - 01/01/2024 2:36 PM CDTAssociated Order(s): EKG Reading; EKG Reading ED NOTE Chief Complaint Chief Complaint Patient presents with Chest Pain History of Present Illness 28-year-old male who presents to the emergency room with complaints of worsening chest pain over the last several months. He states that he used to smoke cigarettes, vape, smoke marijuana and drink alcohol in excess but cut back 4 months ago. He states now that he just takes a shot of vodka here and there and vapes marijuana. He reports a family history of MT of his father at age 54 and uncle at age 43. He denies shortness of breath, nausea, vomiting, diarrhea, fever or chills. He is otherwise at his baseline state physical health History provided by: Patient paraprofessional interpreter used: No Medical History ALLERGIES: Review of patient's allergies indicates: No Known Allergies MEDICATIONS: Prior to Admission medications Medication Sig Start Date End Date Taking? Authorizing Provider pantoprazole EC (PROTONIX) 40 MG tablet Take 1 tablet (40 mg total) by mouth daily for 14 days. 01/01/24 01/15/24 Yes Jaimie Varner APRN diclofenac EC (VOLTAREN) 75 MG tablet Take [...] 05/31/19 Karissa Marin NP PAST MEDICAL HISTORY: Past Medical History: Diagnosis Date Hypertension PAST SURGICAL HISTORY: History reviewed. No pertinent surgical history. FAMILY HISTORY: No family history on file. SOCIAL HISTORY: Social History Tobacco Use Smoking status: Every Day Types: Cigarettes Smokeless tobacco: Never Substance Use Topics Drug use: Yes Types: Marijuana Review of Systems Review of Systems Cardiovascular: Positive for chest pain. All other systems reviewed and are negative. Physical Exam Filed Vitals: 01/01/24 1423 01/01/24 1835 01/01/24 1935 BP: 114/84 132/89 Pulse: 76 71 71 Resp: 20 13 16 Temp: 98.2 ??F (36.8 ??C) TempSrc: Oral SpO2: 97% 100% 97% Weight: 56.6 kg (124 lb 12.5 oz) Height: 1.702 m (5' 7 ) Physical Exam Vitals and nursing note reviewed. Constitutional: General: He is awake. He is not in acute distress. Appearance: Normal appearance. He is well-developed and well-groomed. He is not toxic-appearing. HENT: Head: Normocephalic. Nose: Nose normal. Mouth/Throat: Lips: [place]. Cardiovascular: Rate and Rhythm: Normal rate and regular rhythm. Heart sounds: S1 normal and S2 normal. Pulmonary: Effort: Pulmonary effort is normal. Breath sounds: Normal breath sounds and air entry. Abdominal: General: Abdomen is flat. Bowel sounds are normal. Palpations: Abdomen is soft. Tenderness: There is abdominal tenderness in the epigastric area. There is no guarding or rebound. Musculoskeletal: Cervical back: Neck supple. Comments: Purposeful movement of upper and lower extremities Skin: General: Skin is warm. Capillary Refill: Capillary refill takes less than 2 seconds. Neurological: General: No focal deficit present. Mental Status: He is alert and oriented to person, place, and time. Mental status is at baseline. GCS: GCS eye subscore is 4. GCS verbal subscore is 5. GCS motor subscore is 6. Psychiatric: Behavior: Behavior is cooperative. 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1995 Requested By: CHIQUI GOLDSTEIN Order Number: [id number] Reading MD: Shalom Grajeda Measurements Intervals [place] Rate: 51 P: 68 MI: 137 QRS: 82 QRSD: 92 T: 64 QT: 380 QTc: 352 Interpretive Statements SINUS BRADYCARDIA WITH SINUS ARRHYTHMIA EARLY REPOLARIZATION [ST ELEVATION WITH NORMALLY INFLECTED T-WAVE] ECG 12 lead Narrative [facility] Test Date: 2024-01-01 Pat Name: FELISA OLIVERA Department: 70 Room: [facility] 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1995 Requested By: CHIQUI GOLDSTEIN Order Number: [id number] Reading MD: Shalom Grajeda Measurements Intervals [place] Rate: 62 P: 73 MI: 147 QRS: 85 QRSD: 90 T: 67 QT: 367 QTc: 374 Interpretive Statements SINUS RHYTHM WITH SINUS ARRHYTHMIA MINIMAL VOLTAGE CRITERIA FOR LVH, CONSIDER NORMAL VARIANT [MEETS CRITERIA IN ONE OF: R(aVL), S(V1), R(V5), R(V5/V6)+S(V1)] EARLY REPOLARIZATION [ST ELEVATION WITH NORMALLY INFLECTED T-WAVE] LABORATORY STUDIES: Results for orders placed or performed during the hospital encounter of 01/01/24 CBC W/DIFF AUTOMATED Result Value Ref Range WBC 4.33 4.00 - 10.80 x10'3/uL RBC 4.87 4.50 - 6.10 x10'6/uL HGB 15.0 13.0 - 18.0 G/DL HCT 43.8 37.0 - 52.0 % MCV 89.9 78.0 - 100.0 FL MCH 30.8 27.0 - 31.0 PG MCHC 34.2 33.0 - 36.0 G/DL RDW 12.1 11.5 - 14.5 % PLT 356 (H) 150 - 350 x10'3/uL MPV 9.1 7.4 - 10.4 FL ABS. NEUTROPHILS 2.86 1.60 - 8.30 x10'3/uL ABS. LYMPHOCYTES 1.13 0.80 - 4.70 x10'3/uL ABS. MONOCYTES 0.21 0.00 - 1.50 x10'3/uL ABS. EOSINOPHILS 0.05 0.00 - 0.40 x10'3/uL ABS. BASOPHILS 0.07 0.00 - 0.20 x10'3/uL ABS. IMMATURE GRANULOCYTES 0.01 0.00 - 0.03 x10'3/uL ABS. NUCLEATED RBC'S 0.00 0.0 x10'3/uL BASIC METABOLIC PANEL Result Value Ref Range SODIUM S/P/B 136 136 - 145 MMOL/L POTASSIUM S/P/B 4.0 3.5 - 5.1 MMOL/L CHLORIDE S/P/B 102 98 - 107 MMOL/L CO2 27.1 21.0 - 32.0 MMOL/L GLUCOSE 80 74 - 106 MG/DL BUN 14 7 - 18 MG/DL CREATININE S/P/B 0.94 0.70 - 1.30 MG/DL CALCIUM S/P/B 9.3 8.5 - 10.1 MG/DL ANION GAP 6.9 5.0 - 15.0 MMOL/L OSMOLALITY (CALC) 281 MOSM/KG GFR ESTIMATE >90 >90 ML/MIN/1.73 M2 GFR NOTES GFR REFERENCES: HEPATIC FUNCTION PANEL Result Value Ref Range BILIRUBIN TOTAL S/P/B 2.0 (H) 0.2 - 1.0 MG/DL BILIRUBIN DIRECT S/P/B 0.4 (H) 0.0 - 0.2 MG/DL ALKALINE PHOSPHATASE S/P/B 109 45 - 115 U/L AST 50 (H) 15 - 37 U/L ALT 46 16 - 61 U/L TOTAL PROTEIN S/P/B 7.7 6.4 - 8.2 G/DL ALBUMIN S/P/B 4.4 3.4 - 5.0 G/DL LIPASE Result Value Ref Range LIPASE 21 13 - 75 UNITS/L TROPONIN, QUANT Result Value Ref Range TROPONIN I HIGH SENSITIVITY 27 0 - 78 ng/L TROPONIN, QUANT Result Value Ref Range TROPONIN I HIGH SENSITIVITY 27 0 - 78 ng/L IMAGING STUDIES CTA CHEST+CT ABD+PEL W CON Final Result by User, [email or web address] (12/31 1921) Examination: CTA chest. Clinical Information: Left-sided chest pain. Short of breath. Epigastric pain. Exam time: 01/01/2024 6:17 PM Comparison:Abdominal sonogram obtained same day. Technique: IV contrast: 100 mL Isovue 370. Oral contrast: None. Technical comments: CTA of the chest was performed according to the pulmonary embolism protocol. Coronal MIP images were submitted for evaluation. Additional imaging and reconstructions of the abdomen and pelvis were also obtained. Dose reduction: This CT exam was performed using one or more of the following dose reduction techniques: Automated exposure control, adjustment of the mA and/or kV according to patient size, and/or use of iterative reconstruction technique. Findings: PULMONARY VASCULATURE The pulmonary arteries are well-opacified and no intraluminal filling defect is identified. MEDIASTINUM Support tubes and lines: None. Base of neck/thyroid: There is significant beam hardening secondary to contrast in the lower neck. Heart: Normal in size. No pericardial effusion. Lymph nodes: No supraclavicular, axillary, internal mammary, mediastinal, or hilar adenopathy. LUNGS AND PLEURA Lungs: Clear without focal or diffuse abnormality. Pleura: No pleural effusion, thickening, or calcification. UPPER ABDOMEN Liver and bile ducts: There is a poorly defined 4.3 x 6.0 x 6.1 cm round indeterminate lesion in the right lobe of the liver.The liver is otherwise normal in size and contour. Portal vein and hepatic veins are patent. No biliary dilatation. Gallbladder: No gallbladder wall thickening or pericholecystic fluid. Pancreas: The pancreas is poorly visualized with no peripancreatic inflammation. Spleen: The spleen is normal in size. RETROPERITONEUM Adrenals: The adrenal glands are normal in appearance. Kidneys: The kidneys have normal morphology and enhance symmetrically.There is no solid renal mass or hydronephrosis. Lymph nodes: No lymphadenopathy in the abdomen or pelvis. BOWEL AND PERITONEUM Stomach:The stomach is intact. Bowel: Normal in caliber and wall thickness. Appendix:The appendix is not well visualized but there are no secondary signs of appendicitis. Free air or fluid: None. VASCULATURE The abdominal aorta is normal in caliber. Visceral arteries and portal venous system are normally patent. PELVIS The urinary bladder is within normal limits. BONES/SOFT TISSUES No acute fracture or destructive osseous lesion is identified. Impression: 1. No acute pulmonary embolism. 2. Poorly defined 4 x 6 x 6 cm indeterminate liver lesion. Recommend routine follow-up MRI abdomen with and without contrast according to liver mass protocol for further characterization. The attending radiologist has reviewed the image(s) and agrees with the content of this report. Ordered By: CHIQUI GOLDSTEIN Interpreted By: Ish Tse MD, 01/01/2024 6:37 PM US ABD LIMITED Final Result by User, [id number] (01/01 1756) Exam: Right upper quadrant ultrasound Exam Date/Time: 01/01/2024 5:00 PM Reason For Exam: RUQ pain Comparison: None Ultrasound evaluation of the right upper quadrant contents was performed for analysis of grayscale and color Doppler imaging characteristics. Findings: The liver is normal in size and surface contour. 6.5 cm mildly hyperechoic rounded mass in the right hepatic lobe. Scattered areas of internal flow on Doppler imaging within the mass. The main body of the pancreas is normal in grayscale appearance. The proximal most head and distal tail are obscured by bowel gas. Gallbladder is free of stones, sludge, and pericholecystic fluid. There is no evidence of gallbladder wall thickening. The wall measures 1.6 mm in thickness. There is no pericholecystic hyperemia noted. The distal common bile duct is normal in caliber and measures 2.6 mm in diameter. The IVC is seen and is patent. The portal vein is patent and shows normal directional and waveform flow on Doppler imaging. ===== IMPRESSION: ===== 1. 6.5 cm mildly hyperechoic mass in the right hepatic lobe is indeterminate on this exam. Further evaluation with liver mass protocol enhanced CT or MRI recommended. Referred By: Interpreted By: Lamin Arthur MD, 01/01/2024 5:52 PM XR CHEST PA+LAT Final Result by User, [email or web address] (12/31 043) Examination: Chest x-ray 2 view Exam date/time: 01/01/2024 3:38 PM Indication: 28 male. Chest pain Comparison: Chest x-ray 09/06/2023 Technique: PA and lateral views of the chest. Findings: Normal cardiac size. Normal position of the trachea. Heart and mediastinal contours are within normal limits. Pulmonary vascularity is normal. The lungs and pleural spaces are radiographically clear. No consolidation, effusion or pneumothorax. Unremarkable upper abdomen. ===== IMPRESSION:===== Negative two-view chest; no radiographic evidence of acute/active cardiopulmonary disease. Referred By: Interpreted By: Reid Bush MD, 01/01/2024 3:46 PM EKG Reading Date/Time: 01/01/2024 3:20 PM Performed by: Chiqui Goldstein NP Authorized by: Chiqui Goldstein NP Interpreted by ED physician (Dr. Ny) Comparison: compared with previous ECG from 09/06/2023 Similar to previous ECG Rhythm: sinus rhythm Rate: normal BPM: 51 Clinical impression: non-specific ECG EKG Reading Date/Time: 01/01/2024 6:33 PM Performed by: Chiqui Goldstein NP Authorized by: Chiqui Goldstein NP Interpreted by ED physician (Dr. Lawrence) Comparison: compared with previous ECG from 01/01/2024 Similar to previous ECG Rhythm: sinus rhythm BPM: 62 Clinical impression: non-specific ECG ED Course / Medical Decision Making Medical Decision Making Problems Addressed: Chest pain: acute illness or injury Epigastric pain: acute illness or injury Liver mass: acute illness or injury Amount and/or Complexity of Data Reviewed Labs: Decision-making details documented in ED Course. Radiology: Decision-making details documented in ED Course. ECG/medicine tests: Decision-making details documented in ED Course. Risk OTC drugs. ED Course as of 01/03/242023 Sat January 01, 2024 1522 28-year-old male who presents to the emergency room with complaints of worsening chest pain over the last several months. He states that he used to smoke cigarettes, vape, smoke marijuana and drink alcohol in excess but cut back 4 months ago. He states now that he just takes a shot of vodka here and there and vapes marijuana. He reports a family history of MT of his father at age 54 and uncle at age 43. He denies shortness of breath, nausea, vomiting, diarrhea, fever or chills. He is otherwise at his baseline state physical health [ALICIA] 1523 WBC: 4.33 [ALICIA] 1523 HGB: 15.0 [ALICIA] 1553 TROPONIN I HIGH SENSITIVITY: 27 [ALICIA] 1554 XR CHEST PA+LAT IMPRESSION:===== Negative two-view chest; no radiographic evidence of acute/active cardiopulmonary disease. [ALICIA] 1603 [place] hear score 1. Updated on all findings. Reports feeling better after GI cocktail. Will obtain US RUQ [ALICIA] 1759 US ABD LIMITED Findings: The liver is normal in size and surface contour. 6.5 cm mildly hyperechoic rounded mass in the right hepatic lobe. Scattered areas of internal flow on Doppler imaging within the mass. The main body of the pancreas is normal in grayscale appearance. The proximal most head and distal tail are obscured by bowel gas. Gallbladder is free of stones, sludge, and pericholecystic fluid. There isno evidence of gallbladder wall thickening. The wall measures 1.6 mm in thickness. There is no pericholecystic hyperemia noted. The distal common bile duct is normal in caliber and measures 2.6 mm indiameter. The IVC is seen and is patent. The portal vein is patent and shows normal directional andwaveform flow on Doppler imaging. ===== IMPRESSION: ===== 1. 6.5 cm mildly hyperechoic mass in the right hepatic lobe is indeterminate on this exam. Further evaluation with liver mass protocol enhanced CT or MRI recommended. [ALICIA] 180 Patient is complaining of 10/10 chest pain again. Will obtain IV, give Morphine and obtain CTAchest + abd and pelvis. Discussed will repeat EKG and Troponin as well [ALICIA] 185 TROPONIN I HIGH SENSITIVITY: 27 [ALICIA] 1858 Patient updated on repeat EKG and Trop. He is currently pain free [ALICIA] 1910 Care endorsed to Wilson Varner NP pending CT and re eval [ALICIA] 193 CTA CHEST+CT ABD+PEL W CON 4 x 6 x 6 cm indeterminate liver lesion. Recommend routine follow-up MRI abdomen with and without contrast according to liver mass protocol for further characterization. [AP] ED Course User Index [AP] Jaimie Varner APRN [ALICIA] Chiqui Goldstein NP Medications maalox plus-lidocaine viscous (GI COCKTAIL PLAIN) 45 mL suspension ( Oral Given 01/01/241532) morphine injection 4 mg (4 mg Intravenous Given 01/01/241812) ipratropium-albuterol (DUONEB) 0.5-2.5 (3) MG/3ML nebulizer solution 3 mL (3 mLs Nebulization Given01/01/241825) iopamidol (ISOVUE-370) 76 % injection 100 mL (100 mLs Intravenous Given 01/01/241816) urxkhyykr-gppcsske-cbiwkuiries ([place] MAXIMUM STRENGTH) 2118-4744-165 mg/30mL suspension (30 mLs Oral Given 01/01/241944) Clinical Impression Epigastric pain (Primary) Chest pain Liver mass Disposition: Discharge Discharge Medication List as of 01/01/2024 7:33 PM Follow-up: Ivett Hong MD [address] [facility] [id number] Chiqui Goldstein NP 01/03/2024 Chiqui Goldstein NP 01/03/242023 Cosigned by Riaz Lawrence MD at 01/04/2024 8:11 AM CDT * Rita Vasquez RN - 01/01/2024 2:20 PM CDT Patient arrives to triage with complaints of chest pain for months. Denies any cardiac hx. documented in this encounter Plan of Treatment Not on file documented as of this encounter Procedures Procedure Name Priority Date/Time Associated Diagnosis Comments ELECTROCARDIOGRAM REPORT Routine 6:33 PM CDT ECG 12-LEAD STAT 01/01/2024 6:33 PM CDT CTA CHEST+CT ABD+PEL W CON STAT 01/01/2024 6:17 PM CDT TROPONIN, QUANT STAT 01/01/2024 6:10 PM CDT US ABD LIMITED STAT 01/01/2024 5:52 PM CDT XR CHEST PA+LAT STAT 01/01/2024 3:42 PM CDT ELECTROCARDIOGRAM REPORT Routine 024 3:20 PM CDT ECG 12-LEAD STAT 01/01/2024 3:18 PM CDT BASIC METABOLIC PANEL STAT 01/01/2024 3:14 PM CDT HEPATIC FUNCTION PANEL STAT 3:14 PM CDT CBC W/DIFF AUTOMATED STAT 01/01/2024 3:14 PM CDT TROPONIN, QUANT STAT 01/01/2024 3:14 PM CDT LIPASE STAT 01/01/2024 3:14 PM CDT documented in this encounter Results * EKG Reading (01/01/2024 6:33 PM CDT) Narrative Riaz Lawrence MD - 01/01/2024 6:33 PM CDT Chiqui Goldstein NP ? 01/03/2024 ??8:24 PM EKG Reading Date/Time: 01/01/2024 6:33 PM Performed by: Chiqui Goldstein NP Authorized by: Chiqui Goldstein NP ??Interpreted by ED physician (Dr. Lawrence) Comparison: compared with previous ECG from 01/01/2024 Similar to previous ECG Rhythm: sinus rhythm BPM: 62 Clinical impression: non-specific ECG us Chiqui Goldstein CREDIT SPECIALIST [place] [facility] Final Result * ECG 12 lead (01/01/2024 6:33 PM CDT) 01/01/2024 6:33 PM CDT Narrative [facility] - 01/02/2024 5:17 AM CDT ?[facility]-ED ? Test Date: ?2024-01-01 Pat Name: ? FELISA OLIVERA ?Department: ?? 70 ? Room: ? [id number] Gender: ? Male ? 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 CP : ?1995 ? Requested By: CHIQUI GOLDSTEIN Order Number: [id number] ? Reading MD: ?? Shalom Taras ? Measurements Intervals ?[place] ? Rate: ? 62 ? P: ?73 MI: ? 147 ?QRS: ?85 QRSD: ? 90 ? T: ?67 QT: ? 367 ? QTc: ?374 ? 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1995 Requested By: CHIQUI CLARK Order Number: [id number] Reading MD: Shalom Grajeda Measurements Intervals [place] Rate: 62 P: 73 MI: 147 QRS: 85 QRSD: 90 T: 67 QT: 367 QTc: 374 Interpretive Statements SINUS RHYTHM WITH SINUS ARRHYTHMIA MINIMAL VOLTAGE CRITERIA FOR LVH, CONSIDER NORMAL VARIANT [MEETS CRITERIAIN ONE OF: R(aVL), S(V1), R(V5), R(V5/V6)+S(V1)] EARLY REPOLARIZATION [ST ELEVATION WITH NORMALLY INFLECTED T-WAVE] us Chiqui Goldstein CREDIT SPECIALIST ECG ORDERABLES Final R esult [facility] * CTA CHEST+CT ABD+PEL W CON (01/01/2024 6:17 PM CDT) Anatomical Region Laterality Modality Abdomen, Chest Computed Tomogra phy 01/01/2024 6:37 PM CDT Impressions 01/01/2024 7:21 PM CDT Impression: 1. No acute pulmonary embolism. 2. Poorly defined 4 x 6 x 6 cm indeterminate liver lesion. Recommend routine follow-up MRI abdomen with and without contrast according to liver mass protocol for further characterization. The attending radiologist has reviewed the image(s) and agrees with the content of this report. Ordered By: CHIQUI GOLDSTEIN Interpreted By: Ish Tse MD, 01/01/2024 6:37 PM Narrative 01/01/2024 7:21 PM CDT Examination: CTA chest. Clinical Information: Left-sided chest pain. Short of breath. Epigastric pain. Exam time: 01/01/2024 6:17 PM Comparison:Abdominal sonogram obtained same day. Technique: IV contrast: 100 mL Isovue 370. Oral contrast: None. Technical comments: CTA of the chest was performed according to the pulmonary embolism protocol. Coronal MIP images were submitted for evaluation. Additional imaging and reconstructions of the abdomen and pelvis were also obtained. Dose reduction: This CT exam was performed using one or more of the following dose reduction techniques: Automated exposure control, adjustment of the mA and/or kV according to patient size, and/or use of iterative reconstruction technique. Findings: PULMONARY VASCULATURE The pulmonary arteries are well-opacified and no intraluminal filling defect is identified. MEDIASTINUM Support tubes and lines: None. Base of neck/thyroid: There is significant beam hardening secondary to contrast in the lower neck. Heart: Normal in size. No pericardial effusion. Lymph nodes: No supraclavicular, axillary, internal mammary, mediastinal, or hilar adenopathy. LUNGS AND PLEURA Lungs: Clear without focal or diffuse abnormality. Pleura: No pleural effusion, thickening, or calcification. UPPER ABDOMEN Liver and bile ducts: There is a poorly defined 4.3 x 6.0 x 6.1 cm round indeterminate lesion in the right lobe of the liver.The liver is otherwise normal in size and contour. Portal vein and hepatic veins are patent. No biliary dilatation. Gallbladder: ??No gallbladder wall thickening or pericholecystic fluid. Pancreas: The pancreas is poorly visualized with no peripancreatic inflammation. Spleen: The spleen is normal in size. RETROPERITONEUM Adrenals: The adrenal glands are normal in appearance. Kidneys: The kidneys have normal morphology and enhance symmetrically.There is no solid renal mass or hydronephrosis. Lymph nodes: No lymphadenopathy in the abdomen or pelvis. BOWEL AND PERITONEUM Stomach:The stomach is intact. Bowel: Normal in caliber and wall thickness. Appendix:The appendix is not well visualized but there are no secondary signs of appendicitis. Free air or fluid: None. VASCULATURE The abdominal aorta is normal in caliber. Visceral arteries and portal venous system are normally patent. PELVIS The urinary bladder is within normal limits. BONES/SOFT TISSUES No acute fracture or destructive osseous lesion is identified. ?? Procedure Note Shubham Wiggins MD - 01/01/2024 Examination: CTA chest. Clinical Information: Left-sided chest pain. Short of breath. Epigastricpain. Exam time: 01/01/2024 6:17 PM Comparison:Abdominal sonogram obtained same day. Technique: IV contrast: 100 mL Isovue 370. Oral contrast: None. Technical comments: CTA of the chest was performed according to thepulmonary embolism protocol. Coronal MIP images were submitted forevaluation. Additional imaging and reconstructions of the abdomen andpelvis were also obtained. Dose reduction: This CT exam was performed using one or more of thefollowing dose reduction techniques: Automated exposure control,adjustment of the mA and/or kV according to patient size, and/or use ofiterative reconstruction technique. Findings: PULMONARY VASCULATURE The pulmonary arteries are well-opacified and no intraluminal fillingdefect is identified. MEDIASTINUM Support tubes and lines: None. Base of neck/thyroid: There is significant beam hardening secondary tocontrast in the lower neck. Heart: Normal in size. No pericardial effusion. Lymph nodes: No supraclavicular, axillary, internal mammary, mediastinal,or hilar adenopathy. LUNGS AND PLEURA Lungs: Clear without focal or diffuse abnormality. Pleura: No pleural effusion, thickening, or calcification. UPPER ABDOMEN Liver and bile ducts: There is a poorly defined 4.3 x 6.0 x 6.1 cm roundindeterminate lesion in the right lobe of the liver.The liver is otherwisenormal in size and contour. Portal vein and hepatic veins are patent. Nobiliary dilatation. Gallbladder: No gallbladder wall thickening or pericholecystic fluid. Pancreas: The pancreas is poorly visualized with no peripancreaticinflammation. Spleen: The spleen is normal in size. RETROPERITONEUM Adrenals: The adrenal glands are normal in appearance. Kidneys: The kidneys have normal morphology and enhancesymmetrically.There is no solid renal mass or hydronephrosis. Lymph nodes: No lymphadenopathy in the abdomen or pelvis. BOWEL AND PERITONEUM Stomach:The stomach is intact. Bowel: Normal in caliber and wall thickness. Appendix:The appendix is not well visualized but there are no secondarysigns of appendicitis. Free air or fluid: None. VASCULATURE The abdominal aorta is normal in caliber. Visceral arteries and portal venous system are normally patent. PELVIS The urinary bladder is within normal limits. BONES/SOFT TISSUES No acute fracture or destructive osseous lesion is identified. Impression: 1. No acute pulmonary embolism. 2. Poorly defined 4 x 6 x 6 cm indeterminate liver lesion. Recommendroutine follow-up MRI abdomen with and without contrast according to livermass protocol for further characterization. The attending radiologist has reviewed the image(s) and agrees with thecontent of this report. Ordered By: CHIQUI GOLDSTEIN Interpreted By: Ish Tse MD, 01/01/2024 6:37 PM us Chiqui Goldstein CREDIT SPECIALIST CT Final R esult * TROPONIN, QUANT (01/01/2024 6:10 PM CDT) TROPONIN I HIGH SENSITIVITY 27 0 - 78 ng/L 01/01/2024 6:43 PM CDT [facility] 01/01/2024 6:10 PM CDT Chiquibeatrice Fajardonton Mike CREDIT SPECIALIST LABORATORY Final R esult [facility] [address] [place] [address], [place] [phone] * US ABD LIMITED (01/01/2024 5:52 PM CDT) Anatomical Region Laterality Modality Abdomen Ultrasound 01/01/2024 5:52 PM CDT Impressions 01/01/2024 5:55 PM CDT IMPRESSION: ===== 1. ??6.5 cm mildly hyperechoic mass in the right hepatic lobe is indeterminate on this exam. ??Further evaluation with liver mass protocol enhanced CT or MRI recommended. Referred By: ?? Interpreted By: Lamin Arthur MD, 01/01/2024 5:52 PM Narrative 01/01/2024 5:55 PM CDT Exam: Right upper quadrant ultrasound Exam Date/Time: 01/01/2024 5:00 PM Reason For Exam: ??RUQ pain ?? Comparison: None Ultrasound evaluation of the right upper quadrant contents was performed for analysis of grayscale and color Doppler imaging characteristics. Findings: The liver is normal in size and surface contour. ??6.5 cm mildly hyperechoic rounded mass in the right hepatic lobe. ??Scattered areas of internal flow on Doppler imaging within the mass. ??The main body of the pancreas is normal in grayscale appearance. The proximal most head and distal tail are obscured by bowel gas. Gallbladder is free of stones, sludge, and pericholecystic fluid. There is no evidence of gallbladder wall thickening. The wall measures 1.6 mm in thickness. There is no pericholecystic hyperemia noted. The distal common bile duct is normal in caliber and measures 2.6 mm in diameter. The IVC is seen and is patent. The portal vein is patent and shows normal directional and waveform flow on Doppler imaging. ===== Procedure Note Lamin Arthur MD - 01/01/2024 Exam: Right upper quadrant ultrasound Exam Date/Time: 01/01/2024 5:00 PM Reason For Exam: RUQ pain Comparison: None Ultrasound evaluation of the right upper quadrant contents was performedfor analysis of grayscale and color Doppler imaging characteristics. Findings: The liver is normal in size and surface contour. 6.5 cm mildlyhyperechoic rounded mass in the right hepatic lobe. Scattered areas ofinternal flow on Doppler imaging within the mass. The main body of thepancreas is normal in grayscale appearance. The proximal most head anddistal tail are obscured by bowel gas. Gallbladder is free of stones,sludge, and pericholecystic fluid. There is no evidence of gallbladderwall thickening. The wall measures 1.6 mm in thickness. There is nopericholecystic hyperemia noted. The distal common bile duct is normal incaliber and measures 2.6 mm in diameter. The IVC is seen and is patent.The portal vein is patent and shows normal directional and waveform flowon Doppler imaging. ===== IMPRESSION: ===== 1. 6.5 cm mildly hyperechoic mass in the right hepatic lobe isindeterminate on this exam. Further evaluation with liver mass protocolenhanced CT or MRI recommended. Referred By: Interpreted By: Lamin Arthur MD, 01/01/2024 5:52 PM Chiqui Glodstein NP ULTRASOUND Final R esult * XR CHEST PA+LAT (01/01/2024 3:42 PM CDT) Anatomical Region Laterality Modality Chest Radiographic Chelsie ging 01/01/2024 3:46 PM CDT Impressions 01/01/2024 3:47 PM CDT IMPRESSION:===== Negative two-view chest; no radiographic evidence of acute/active cardiopulmonary disease. Referred By: ?? Interpreted By: Reid Bush MD, 01/01/2024 3:46 PM Narrative 01/01/2024 3:47 PM CDT Examination: Chest x-ray 2 view Exam date/time: 01/01/2024 3:38 PM Indication: ??28 male. ??Chest pain ?? Comparison: Chest x-ray 09/06/2023 Technique: PA and lateral ??views of the chest. Findings: ??Normal cardiac size. ??Normal position of the trachea. ??Heart and mediastinal contours are within normal limits. ??Pulmonary vascularity is normal. The lungs and pleural spaces are radiographically clear. ??No consolidation, effusion or pneumothorax. Unremarkable upper abdomen. ===== Procedure Note Reid Bush MD - 01/01/2024 Examination: Chest x-ray 2 view Exam date/time: 01/01/2024 3:38 PM Indication: 28 male. Chest pain Comparison: Chest x-ray 09/06/2023 Technique: PA and lateral views of the chest. Findings: Normal cardiac size. Normal position of the trachea. Heartand mediastinal contours are within normal limits. Pulmonary vascularityis normal. The lungs and pleural spaces are radiographically clear. Noconsolidation, effusion or pneumothorax. Unremarkable upper abdomen. ===== IMPRESSION:===== Negative two-view chest; no radiographic evidence of acute/activecardiopulmonary disease. Referred By: Interpreted By: Reid Bush MD, 01/01/2024 3:46 PM us Chiqui Goldstein NP GENERAL IMAGING Final R esult * EKG Reading (01/01/2024 3:20 PM CDT) Narrative Riaz Lawrence MD - 01/01/2024 3:20 PM CDT Chiqui Goldstein NP ? 01/03/2024 ??8:24 PM EKG Reading Date/Time: 01/01/2024 3:20 PM Performed by: Chiqui Goldstein NP Authorized by: Chiqui Goldstein NP ??Interpreted by ED physician (Dr. Ny) Comparison: compared with previous ECG from 09/06/2023 Similar to previous ECG Rhythm: sinus rhythm Rate: normal BPM: 51 Clinical impression: non-specific ECG us Chiqui Goldstein NP [place] [facility] Final Result * ECG 12 lead (01/01/2024 3:18 PM CDT) 01/01/2024 3:18 PM CDT [facility] - 01/02/2024 5:14 AM CDT ?SJS-ED ? Test Date: ?2024-01-01 Pat Name: ? FELISA OLIVERA ?Department: ?? 70 ? Room: ? LD1195 Gender: ? Male ? 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 CP : ?1995 ? Requested By: CHIQUI GOLDSTEIN Order Number: [id number] ? Reading MD: ?? Shalom Grajeda ? Measurements Intervals ?[place] ? Rate: ? 51 ? P: ?68 MI: ? 137 ?QRS: ?82 QRSD: ? 92 ? T: ?64 QT: ? 380 ? QTc: ?352 ? 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1995 Requested By: CHIQUI CLARK Order Number: [id number] Reading MD: Shalom Grajeda Measurements Intervals [place] Rate: 51 P: 68 MI: 137 QRS: 82 QRSD: 92 T: 64 QT: 380 QTc: 352 Interpretive Statements SINUS BRADYCARDIA WITH SINUS ARRHYTHMIA EARLY REPOLARIZATION [ST ELEVATION WITH NORMALLY INFLECTED T-WAVE] Chiqui Goldstein CREDIT SPECIALIST ECG ORDERABLES Final R esult Performing Organization Address [facility] Co de Phone Number [facility] * TROPONIN, QUANT (01/01/2024 3:14 PM CDT) [facility] TROPONIN I HIGH SENSITIVITY 27 0 - 78 ng/L 01/01/2024 3:53 PM CDT [facility] 01/01/2024 3:14 PM CDT Chiqui Goldstein CREDIT SPECIALIST LABORATORY Final R esult Performing Organization Address [facility] de Phone Number [facility] [address] [place] [address], [phone] * LIPASE (01/01/2024 3:14 PM CDT) [facility] LIPASE 21 13 - 75 UNITS/L 01/01/2024 3:53 PM CDT [facility] 01/01/2024 3:14 PM CDT Chiqui Goldstein CREDIT SPECIALIST LABORATORY Final R esult Performing Organization Address [facility] de Phone Number [facility] [address] [place] [address], [phone] * (ABNORMAL) HEPATIC FUNCTION PANEL (01/01/2024 3:14 PM CDT) Pathologist [facility] BILIRUBIN TOTAL S/P/B 2.0(H) 0.2 - 1.0 MG/DL 01/01/2024 3:53 PM CDT [facility] BILIRUBIN DIRECT S/P/B 0.4(H) 0.0 - 0.2 MG/DL 01/01/2024 3:53 PM CDT [facility] ALKALINE PHOSPHATASE S/P/B 109 45 - 115 U/L 01/01/2024 3:53 PM CDT [facility] AST 50(H) 15 - 37 U/L 01/01/2024 3:53 PM CDT [facility] ALT 46 16 - 61 U/L 01/01/2024 3:53 PM CDT [facility] TOTAL PROTEIN S/P/B 7.7 6.4 - 8.2 G/DL 01/01/2024 3:53 PM CDT [facility] ALBUMIN S/P/B 4.4 3.4 - 5.0 G/DL 01/01/2024 3:53 PM CDT [facility] 01/01/2024 3:14 PM CDT Chiqui Goldstein NP LABORATORY Final R esult [facility] [address] [place] [address], [phone] * BASIC METABOLIC PANEL (01/01/2024 3:14 PM CDT) SODIUM S/P/B 136 136 - 145 MMOL/L 01/01/2024 3:53 PM CDT [facility] POTASSIUM S/P/B 4.0 3.5 - 5.1 MMOL/L 01/01/2024 3:53 PM CDT [facility] CHLORIDE S/P/B 102 98 - 107 MMOL/L 01/01/2024 3:53 PM CDT [facility] CO2 27.1 21.0 - 32.0 MMOL/L 01/01/2024 3:53 PM CDT [facility] GLUCOSE 80 74 - 106 MG/DL 01/01/2024 3:53 PM CDT [facility] BUN 14 7 - 18 MG/DL 01/01/2024 3:53 PM CDT [facility] CREATININE S/P/B 0.94 0.70 - 1.30 MG/DL 01/01/2024 3:53 PM CDT [facility] CALCIUM S/P/B 9.3 8.5 - 10.1 MG/DL 01/01/2024 3:53 PM CDT [facility] ANION GAP 6.9 5.0 - 15.0 MMOL/L 01/01/2024 3:53 PM CDT [facility] OSMOLALITY (CALC) 281 MOSM/KG 024 3:53 PM CDT [facility] Comment:REFERENCE RANGE NOT ESTABLISHED GFR ESTIMATE >90 >90 ML/MIN/1. 73 M2 01/01/2024 3:53 PM CDT [facility] GFR NOTES GFR REFERENCE S: 01/01/2024 3:53 PM CDT [facility] Comment: THE ESTIMATED GFR IS [...] ml/min/1.73 m2 G5,KIDNEY FAILURE: <15 ml/min/1.73 m2 01/01/2024 3:14 PM CDT Chiqui Goldstein NP LABORATORY Final R esult [facility] [address] [place] [address], [phone] * (ABNORMAL) CBC W/DIFF AUTOMATED (01/01/2024 3:14 PM CDT) WBC 4.33 4.00 - 10.80 x10'3/uL 01/01/2024 3:22 PM CDT [facility] RBC 4.87 4.50 - 6.10 x10'6/uL 01/01/2024 3:22 PM CDT [facility] HGB 15.0 13.0 - 18.0 G/DL 01/01/2024 3:22 PM CDT [facility] HCT 43.8 37.0 - 52.0 % 01/01/2024 3:22 PM CDT [facility] MCV 89.9 78.0 - 100.0 FL 01/01/2024 3:22 PM CDT [facility] MCH 30.8 27.0 - 31.0 PG 01/01/2024 3:22 PM CDT [facility] MCHC 34.2 33.0 - 36.0 G/DL 01/01/2024 3:22 PM CDT [facility] RDW 12.1 11.5 - 14.5 % 01/01/2024 3:22 PM CDT [facility] PLT 356(H) 150 - 350 x10'3/uL 01/01/2024 3:22 PM CDT [facility] MPV 9.1 7.4 - 10.4 FL 01/01/2024 3:22 PM CDT [facility] ABS. NEUTROPHILS 2.86 1.60 - 8.30 x10'3/uL 01/01/2024 3:22 PM CDT [facility] ABS. LYMPHOCYTES 1.13 0.80 - 4.70 x10'3/uL 01/01/2024 3:22 PM CDT [facility] ABS. MONOCYTES 0.21 0.00 - 1.50 x10'3/uL 01/01/2024 3:22 PM CDT [facility] ABS. EOSINOPHILS 0.05 0.00 - 0.40 x10'3/uL 01/01/2024 3:22 PM CDT [facility] ABS. BASOPHILS 0.07 0.00 - 0.20 x10'3/uL 01/01/2024 3:22 PM CDT [facility] ABS. IMMATURE GRANULOCYTES 0.01 0.00 - 0.03 x10'3/uL 01/01/2024 3:22 PM CDT [facility] ABS. NUCLEATED RBC'S 0.00 0.0 x10'3/uL 01/01/2024 3:22 PM CDT [facility] 01/01/2024 3:14 PM CDT Chiqui Goldstein NP LABORATORY Final R esult [facility] [address] [place] [address], [phone] documented in this encounter Visit Diagnoses Diagnosis Epigastric pain- Primary Abdominal pain, epigastric Chest pain Chest pain, unspecified Liver mass Unspecified disorder of liver documented in this encounter Administered Medications Inactive Administered Medications - up to 3 most recent administrations Medication Order MAR Action Action Date Dose Rate Site iopamidol (ISOVUE-370) 76 % injection 100 mL 100 mL, Intravenous, IMG once as needed, Contrast, 1 dose, Starting on 01/01/24 at 1817, Until 01/01/24 at 1817 Given 01/01/2024 6:17 PM CDT 100 mLs ipratropium-albuterol (DUONEB) 0.5-2.5 (3) MG/3ML nebulizer solution 3 mL 3 mL, Nebulization, Once, 1 dose, On 01/01/24 at 1800 Given 01/01/2024 6:26 PM CDT 3 mLs maalox plus-lidocaine viscous (GI COCKTAIL PLAIN) 45 mL suspension Oral, Once, 1 dose, On 01/01/24 at 1515 Given 01/01/2024 3:33 PM CDT sglgtoukx-qbbnazfm-xlcwvslvcng (MYLANTA MAXIMUM STRENGTH) 1105-3071-787 mg/30mL suspension 30 mL, Oral, Once, 1 dose, On 01/01/24 at 1945, Shake Well Given 01/01/2024 7:45 PM CDT 30 mLs morphine injection 4 mg 4 mg, Intravenous, Once, 1 dose, On 01/01/24 at 1800 Given 01/01/2024 6:13 PM CDT 4 mg normal saline 0.9 % flush 3-10 mL 3-10 mL, Intravenous, Every 8 hours, First dose on 01/01/24 at 1800, Until Discontinued normal saline 0.9 % flush 3-10 mL 3-10 mL, Intravenous, As needed, Line care, Starting on 01/01/24 at 1759, Until 01/01/24 at 2148 Given 01/01/2024 6:13 PM CDT 10 mLs documented in this encounter Active and Recently Administered Medications Times are shown in CDT. Scheduled Medication Order 12/30/2023 12/31/2023 01/01/2024 ipratropium-albuterol (DUONEB) 0.5-2.5 (3) MG/3ML nebulizer solution 3 mL (COMPLETED) 3 mL, Nebulization, Once, 1 dose, On 01/01/24 at 1800 1826 (Given - Provid er: Carmen Ruiz RRT) maalox plus-lidocaine viscous (GI COCKTAIL [place]IN) 45 mL suspension (COMPLETED) Oral, Once, 1 dose, On 01/01/24 at 1515 1533 (Given - Provid er: Benjamin Edwards RN) nurjquzvh-dcnfzpay-cxyuplqohtp (MYLANTA MAXIMUM STRENGTH) 0545-6941-825 mg/30mL suspension (COMPLETED) 30 mL, Oral, Once, 1 dose, On 01/01/24 at 1945, Shake Well 1945 (Given - Provid er: Brock Koroma RN) morphine injection 4 mg (COMPLETED) 4 mg, Intravenous, Once, 1 dose, On 01/01/24 at 1800 1813 (Given - Provid er: Nu White RN) normal saline 0.9 % flush 3-10 mL 3-10 mL, Intravenous, Every 8 hours, First dose on 01/01/24 at 1800, Until Discontinued 1913 (Not Given - Pr ovider: Brock Koroma RN - Reason: Other) PRN Medication Order 12/30/2023 12/31/2023 01/01/2024 iopamidol (ISOVUE-370) 76 % injection 100 mL (COMPLETED) 100 mL, Intravenous, IMG once as needed, Contrast, 1 dose, Starting on 01/01/24 at 1817, Until 01/01/24 at 1817 1817 (Given - Provid er: Efrain Chapin, RTR) normal saline 0.9 % flush 3-10 mL 3-10 mL, Intravenous, As needed, Line care, Starting on 01/01/24 at 1759, Until 01/01/24 at 2148 1813 (Given - Provid er: Nu White RN) documented in this encounter Care Teams Home Sales Consultant Relationship Specialty Start Date End Date Ivett Hong MD PCP - General FAMILY PRACTICE 05/20/22 documented as of this encounter
--- OUTSIDE RECORDS SUMMARY | 2024-08-09 16:47 | XMS_ITS | Encounter Summary ---
Author Organization [facility] Address [address] [place] [address]. [place], [place] [id number] [place] [id number] Care Team Providers Care Knockout Worker Name Role Phone None, Provider MD Primary Care Provider Unavaila ble Reason for Visit * Reason Comments Suspected Coronavirus (Covid-19) Encounter Details Date Type Department Care Team (Late st Contact Info) Description 05/13/2020 9:15 AM CDT - 05/13/2020 9:42 AM CDT Emergency [facility] [address] [place], [place] [address] Samuel Umaña MD [address] [place] [id number] Suspected Coronavirus (Covid-19) Discharge Disposition: Home or Self Care (Routine Discharge) Social History Tobacco Use Types Packs/Day Years Used Date Smoking Tobacco: Never Assessed Sex and Gender Information Value Date Recorded Sex Assigned at Not on file 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 No / Unsure 05/13/2020 9:08 AM CDT documented as of this encounter Last Filed Vital Signs Vital Sign Reading Time Taken Comments Blood Pressure 134/84 05/13/2020 9:34 AM CDT Pulse 98 05/13/2020 9:34 AM CDT Temperature 37.3 ??C (99.1 ??F) 05/13/2020 9:34 AM CD T Respiratory Rate 20 05/13/2020 9:34 AM CDT Oxygen Saturation 95% 05/13/2020 9:34 AM CDT Inhaled Oxygen Concentration - - Weight 61.2 kg (135 lb) 05/13/2020 9:34 AM CDT Height 172.7 cm (5' 8 ) 05/13/2020 9:34 AM CDT Body Mass Index 20.53 05/13/2020 9:34 AM CDT documented in this encounter Discharge Instructions * Discharge Instructions* Samuel Umaña MD - 05/13/2020 9:22 AM CDT Follow with your doctor or doctor referral call for appointment to be seen as soon as possible. If prescribed meds, fill them and take as directed. return if change or worsen in condition or if new symptoms develop. We want to provide the highest level of care and hope you are happy with the service you receive. You will be mailed a patient satisfaction survey and hope that you will return it indicating that everything was very good: all 5's Thank you for selecting [facility] Because of your symptoms and or recent travel history, additional steps are being asked to review to prevent potential spread of 2019 novel coronavirus (COVID-19). You and those you live with should remain at home for at least 14 days if you or they have a known or suspected exposure to COVID-19 and monitor for symptoms. If you have symptoms of the infection you should remain home until: Your symptom are resolving and you have not had a fever for 3 days without fever reducing medications. AND at least 10 days have passed since your symptoms began. You should check and record your temperature and any symptoms every day and twice a day for the next 14 days. Take the prevention steps listed below until your local health department says you can return to your normal activities: 1. Stay home or in a comparable setting except to receive medical care. 2. Postpone additional travel. 3. Call ahead before visiting your doctor. 4. Wear a facemask when you are around other people. Avoid being around other people. 5. Cover your coughs and sneezes. 6. Wash your hands for at least 20 seconds. Use alcohol based hand buckle inspector that contains at least60% alcohol. 7. Do not share personal household items. 8. Monitor your symptoms. Symptoms to monitor: 1. Feeling feverish 2. Cough 3. Sore throat 4. Difficulty breathing or shortness of breath 5. Muscle aches/headaches. 6. Abdominal discomfort 7. Vomiting 8. Diarrhea If you were tested for COVID-19 today you should receive a call with these results within about 5 business days. Immediately: Call your local [facility] health department you develop symptoms or plan to travel outside your country. You can call the [place] Department of Public Health at [phone]. After hours or weekends [phone]. * Attachments The following attachments cannot be sent through Care Everywhere. * Viral Syndrome Discharge Instructions (Senegalese) documented in this encounter Medications at Time [...] as of this encounter ED Notes * Jes Greene RN - 05/13/2020 9:35 AM CDT Pt explained the need and the way this facility obtains the specimen. Pt refusing test. States we go in too far. Attempted to swab and just touched the tip of the qtip to the nares and pt refused again. RN and provider notified. * Gray Ornelas RN - 05/13/2020 9:34 AM CDT Patient refused to undergo nasal swabbing for Chand testing. * Samuel Umaña MD - 05/13/2020 9:22 AM CDT Chief Complaint Chief Complaint Patient presents with ??? Suspected Coronavirus (Covid-19) History of Present Illness 24-year-old male presents the emergency department 3-day complaint of loss of taste and smell as well as generalized myalgias. Denies fever chills cough congestion nausea vomiting diarrhea. Works at [employer] where there is been positive cases is concerned about [employer]. Medical History ALLERGIES: No Known Allergies MEDICATIONS: Prior to Admission medications Medication Sig Start Date End Date Taking? Authorizing Provider hydrocodone-acetaminophen 5-325 MG tablet Take 1 tablet by mouth every 6 (six) hours as needed. Indications: Acute Pain < 3 Day Supply 05/31/19 Karissa Yoo NP ibuprofen 600 MG tablet Take 1 tablet (600 mg total) by mouth every 6 (six) hours as needed. 05/31/19 Karissa Yoo NP PAST MEDICAL HISTORY: No past medical history on file. PAST SURGICAL HISTORY: No past surgical history on file. FAMILY HISTORY: No family history on file. SOCIAL HISTORY: Social History Tobacco Use ??? Smoking status: Not on file Substance Use Topics ??? Alcohol use: Not on file ??? Drug use: Not on file Review of Systems Review of Systems A 10 point review of systems was obtained and negative or noncontributory to the patient's chief complaint Physical Exam Filed Vitals: 05/13/20 0934 BP: 134/84 Pulse: 98 Resp: 20 Temp: 99.1 ??F (37.3 ??C) TempSrc: Oral SpO2: 95% Weight: 61.2 kg (135 lb) Height: 5' 8 (1.727 m) Physical Exam Constitutional and psychiatric: Patient is well-nourished well-developed alert and nontoxic in appearance. Eyes: Inspection of conjunctivae and lids reveal no acute abnormality pupils are equal and reactiveextraocular muscles are intact. Neck: Supple no masses or tenderness are appreciated. Trachea is midline no JVD. Respiratory: Normal respiratory effort auscultation reveals normal breath sounds bilaterally. Cardiovascular: Regular rate and rhythm, no abnormal sounds or murmurs, no chest wall tenderness topalpation, normal carotid radial and pedal pulses, no acute abnormality of the abdominal aorta extremities reveal no nontraumatic edema. Gastrointestinal: Abdomen is soft and nondistended. No hepatosplenomegaly or hernias noted. Musculoskeletal: Patient has full range of motion, stability, muscle strength, and tone of upper and lower extremities. Skin: No acute rashes lesions or induration noted. Neurological: Cranial nerves II through XII are grossly intact. Normal sensation. Diagnostic Studies / Procedures ELECTROCARDIOGRAMS: No results found for this visit on 05/13/20. LABORATORY STUDIES: No results found for this visit on 05/13/20. IMAGING STUDIES No orders to display ED Course / Medical Decision Making Will test for COVID discharge home with quarantine instructions until results. ED Course as of May 14 075 Mon May 13, 2020 0934 Patient ended up refusing the test will leave [NB] ED Course User Index [NB] Samuel Umaña MD Medications - No data to display Clinical Impression Viral syndrome (Primary) Disposition: Discharge Discharge Medication List as of 05/13/2020 9:39 AM SAMUEL UMAÑA MD 05/14/2020 Samuel Umaña MD 05/14/205 * Mary Ann Tay RN - 05/13/2020 9:10 AM CDT PT ARRIVES TO TRIAGE WITH C/O CHILLS / FEVER / MUSCLE ACHES / HEADACHE / LOSS OF SMELL / FATIGUE X 2 DAYS. 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
--- OUTSIDE RECORDS SUMMARY | 2024-08-09 16:47 | XMS_ITS | Encounter Summary ---
Author Organization [facility] Address [address] [place] [address]. 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
--- OUTSIDE RECORDS SUMMARY | 2024-08-09 16:47 | XMS_ITS | Patient Health Record ---
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, [address] [place] [address] Notes/Report: WBC 3.0 3.9-12.0 K/UL RBC 4.56 4.00-6.10 M/UL HEMOGLOBIN 14.5 13.2-18.0 GM/DL HEMATOCRIT 42.8 38.0-55.0 % MCV 93.9 80.0-99.0 FL MCH 31.8 26.0-35.0 PG MCHC 33.9 32.0-37.0 GM/DL RDW 13.4 11.6-15.0 % PLATELET 234 150-450 K/UL MPV 7.9 6.5-11.0 FL METHOD Automated Differential % NEUTROPHIL - AUTOMATED COUNT 46.8 40.0-70.0 % % LYMPHOCYTE - AUTOMATED COUNT 37.4 25.0-45.0 % % MONOCYTE - AUTOMATED COUNT 9.7 2.0-12.0 % % EOSINOPHIL - AUTOMATED COUNT 4.4 0.0-6.0 % % BASOPHIL - AUTOMATED COUNT 1.7 0.0-2.0 % ABSOLUTE NEUTROPHIL - AUTOMATED COUNT 1.4 1.3-7.5 K/UL ABSOLUTE LYMPHOCYTE - AUTOMATED COUNT 1.1 1.3-4.2 K/UL ABSOLUTE MONOCYTE - AUTOMATED COUNT 0.3 0.2-1.0 K/UL ABSOLUTE EOSINOPHIL - AUTOMATED COUNT 0.1 0.0-0.5 K/UL ABSOLUTE BASOPHIL - AUTOMATED COUNT 0.1 <=0.2 K/UL NUCLEATED RBC'S - AUTOMATED COUNT 0.3 COMPREHENSIVE METABOLIC PANE L (CMP) * Reviewed date:10/27/2023 02:59:33 PM Interpretation:Stable Performing Lab:[facility], [address] [place] [address] Notes/Report: BLOOD UREA NITROGEN 8 6-20 MG/DL SODIUM 141 135-145 MMOL/L POTASSIUM 4.0 3.5-5.2 MMOL/L CHLORIDE 106 98-108 MMOL/L CO2 CONTENT 30 24-32 MMOL/L GLUCOSE 87 65-110 MG/DL CALCIUM 9.0 8.6-10.6 MG/DL CREATININE 1.03 0.50-1.50 MG/DL TOTAL PROTEIN 5.9 6.0-8.0 GM/DL ALBUMIN 4.0 3.4-5.0 GM/DL ALK PHOS 47 40-125 U/L ALT 21 7-50 U/L AST 22 10-40 U/L BILIRUBIN, TOTAL 0.8 0.0-1.2 MG/DL ANION GAP 5 3-11 MMOL/L ESTIMATED GLOMERULAR FILTRATION RATE, CKD-EPI 103 >=60 mL/min/1.73m*2 DRUG SCREEN 9, SERUM OR PLAS MA W/ CONFIRM * Reviewed date:11/03/2023 03:15:09 PM Interpretation:+ cannabinoids Performing Lab:[facility], [address] [place] [address] Notes/Report: AMPHETAMINES, S/P, SCREEN Negative Cutoff 20 ng/mL METHAMPHETAMINE, S/P, SCREEN Negative Cutoff 20 ng/mL BARBITURATES, S/P, SCREEN Negative Cutoff 50 ng/mL BENZODIAZEPINES, S/P, SCREEN Negative Cutoff 50 ng/mL BUPRENORPHINE, S/P, SCREEN Negative Cutoff 1 ng/mL COCAINE, S/P, SCREEN Negative Cutoff 20 ng/mL METHADONE, S/P, SCREEN Negative Cutoff 25 ng/mL OPIATES, S/P, SCREEN Negative Cutoff 20 ng/mL OXYCODONE, S/P, SCREEN Negative Cutoff 20 ng/mL PHENCYCLIDINE, S/P, SCREEN Negative Cutoff 10 ng/mL CANNABINOIDS, S/P, SCREEN Positive Cutoff 20 ng/mL If the screen is positive, then confirmation by mass spectrometry will be added. Additional charges will apply. Unconfirmed positive may be useful for medical purposes, but does not meet forensic standards. DRUG SCREEN COMMENTS, SERUM OR PLASMA See Note INTERPRETIVE INFORMATION: Drug Screen 9 Panel, Serum or Plasma - Immunoassay Screen with Reflex to Mass Spectrometry Confirmation/Quantitati on 1. Methodology: Qualitative Immunoassay Screen 2. Drugs/Drug classes reported as Positive are automatically reflexed to mass spectrometry confirmation/quantitati on testing. An immunoassay unconfirmed positive screen result may be useful for medical purposes but does not meet forensic standards. 3. The absence of expected drug(s) and/or drug metabolite(s) may indicate noncompliance, inappropriate timing of specimen collection relative to drug administration, poor drug absorption, or limitations of testing. The concentration at which the screening test can detect a drug or metabolite varies within a drug class. Specimens for which drugs or drug classes are detected by the screen are automatically reflexed to a second, more specific technology (mass spectrometry). The concentration value must be greater than or equal to the cutoff to be reported as positive. Interpretive questions should be directed to the laboratory. 4. For medical purposes only; not valid for forensic use. This test was developed and its performance characteristics determined by [facility]. It has not been cleared or approved by the US Food and Drug Administration. This test was performed in a CLIA certified laboratory and is intended for clinical purposes. Performed By: [facility] [address] [place] [address] Diesel Roller Operator: Roberto Richmond MD, PhD CLIA Number: [id number] HCV QUANT REAL TIME PCR * Reviewed date:11/02/2023 09:32:09 AM Interpretation:Negative Performing Lab:[facility], [address] [facility], [place] [address] Notes/Report: HCV REAL TIME PCR INTERPRETATION Target Not Detected HCV REAL TIME PCR NARRATIVE HCV RNA was quantitated by the felipe HCV test, on the felipe 6800 System. An internal control was added to the specimen before viral nucleic acid extraction to rule out PCR inhibition. The quantitative range of the assay is 15-100,000,000 IU/ml of plasma. The Limit of Detection (analytical sensitivity) of the assay is 12 IU/ml. A Not Detected result means that HCV RNA was not detected, and the internal control is valid in the specimen. The clinical interpretation is: no current HCV infection. For HCV diagnosis: No further testing indicated (repeat HCV RNA testing if the person tested is suspected to have had HCV exposure within the past 6 months or has clinical evidence of HCV disease, or if there is concern regarding the handling or storage of the test specimen). For Viral Load Assessment: Routine clinical follow-up according to national HCV guidelines. A result of <15 IU/ml means that HCV RNA was detected, but its level was below the quantifiable range of the assay. The clinical interpretation is: low-level HCV viremia, may indicate previous spontaneous or treatment-related resolution of HCV infection. For HCV Diagnosis: Results must be interpreted within the context of all relevant clinical and laboratory findings (repeat HCV RNA testing if the person tested is suspected to have had HCV exposure within the past 6 months or has clinical evidence of HCV disease, or if there is concern regarding the handling or storage of the test specimen). For Viral Load Assessment: Routine clinical follow-up according to national HCV guidelines. A result of 15 IU/ml to <25 IU/ml means that HCV RNA was detected and quantified. The clinical interpretation is: low-level HCV viremia, may indicate previous spontaneous or treatment-related resolution of HCV infection (repeat HCV RNA testing if the person tested is suspected to have had HCV exposure within the past 6 months or has clinical evidence of HCV disease, or if there is concern regarding the handling or storage of the test specimen). For HCV Diagnosis and Viral Load Assessment: Provide patient with appropriate counseling and link to care and treatment according to current HCV treatment guidelines. A result of 15 IU/ml to less than or equal to 100 million IU/ml means that HCV RNA was detected and quantified. The clinical interpretation is: current HCV infection. For HCV Diagnosis and Viral Load Assessment: Provide patient with appropriate counseling and link to care and treatment according to current HCV treatment guidelines. A result of > 100,000,000 IU/ml means that the HCV RNA level was above the quantifiable limit of the assay. The clinical interpretation is: current HCV infection. For HCV Diagnosis and Viral Load Assessment: Provide patient with appropriate counseling and link to care and treatment according to current HCV treatment guidelines. This test is approved by the FDA for use as an aid in the diagnosis of HCV infection and as an aid in the management of HCV- infected patients. LIPID PANEL * Reviewed date:10/27/2023 02:59:33 PM Interpretation:Stable Performing Lab:[facility], [address] [place] [address] Notes/Report: CHOLESTEROL 169 <200 MG/DL HDL 87 >40 MG/DL TRIGLYCERIDE 66 <150 MG/DL LDL, CALCULATED 69 <130 MG/DL TSH W/ FT4 REFLEX * Reviewed date:10/27/2023 02:59:33 PM Interpretation:2.24 Performing Lab:[facility], [address] [place] [address] Notes/Report: TSH W/ FT4 REFLEX 2.24 0.35-4.00 MCIU/ML TOTAL SYPHILIS ANTIBODY IGG AND IGM * Reviewed date:10/27/2023 02:59:33 PM Interpretation:Negative Performing Lab:[facility], [address] [place] [address] Notes/Report: TOTAL SYPHILIS Non-Reactive Non-Reactive HIV ANTIBODY/ANTIGEN SCREEN WITH REFLEX * Reviewed date:10/27/2023 02:59:33 PM Interpretation:Negative Performing Lab:[facility], [address] [place] [address] Notes/Report: HIV AG-AB Non-Reactive Non-Reactive HIV-1 AB Non-Reactive Non-Reactive HIV-1 AG Non-Reactive Non-Reactive HIV-2 AB Non-Reactive Non-Reactive Echocardiogram (2D) : (Compl ete; W/ Spectral and Color) : [id number] Reviewed date:01/18/2024 08:35:18 AM Interpretation:Left Aberrant Chordae Performing Lab: Notes/Report: Left Aberrant Chordae CANNABINOIDS, CONF Reviewed date:11/03/2023 03:15:02 PM Interpretation: Performing Lab:[facility], [address] [place] [address] Notes/Report: 45-CNN-3-CARBOXY-THC, S/P, QUANT 34 INTERPRETIVE INFORMATION: THC Metabolite, Serum or Plasma, Quantitative Methodology: Quantitative Liquid Chromatography-Tandem Mass Spectrometry. Positive cutoff: 5 ng/mL For medical purposes only; not valid for forensic use. The drug analyte detected in this assay, 9-carboxy THC, is a metabolite of rfysa-3-ghygjhrgufafysk binol (THC). Detection of 9-carboxy THC suggests use of, or exposure to, a product containing THC. This test cannot distinguish between prescribed or non-prescribed forms of THC, nor can it distinguish between active or passive use. The plasma half-life for 9-carboxy THC metabolite is estimated to range from 4-12 hours. This test was developed and its performance characteristics determined by [facility]. It has not been cleared or approved by the US Food and Drug Administration. This test was performed in a CLIA certified laboratory and is intended for clinical purposes. Performed By: [facility] [address] [place] [address] Diesel Roller Operator: Roberto Richmond MD, PhD CLIA Number: [id number] Ultrasound : Chest, Soft Tis tunde : [id number] Reviewed date:03/23/2024 02:49:44 PM Interpretation: Performing Lab: Notes/Report: Reason For Referral Reason eval and treat, pt c /o increased fatigue, weakness, multiple syncopal events, Echo showed aberrant tissue, Pulmonary pressure not able to be obtained. pt was evaluated at [facility] where he had cardiac workup in ED. Diagnosis 1 Aberrant tissue (Q89 .9) Diagnosis 2 Recurrent syncope (R 55) Diagnosis 3 Weakness (R53.1) Diagnosis 4 Fatigue, unspecified type (R53.83) Referral Organization [facility] Referring Provider First Name Crissy Referring Provider Last Name [facility] Referring Provider [facility] Referred Provider [facility] Referred Provider Specialty Cardiology General Notes Endy Yates 01/20 10:51:13 AM >Faxed to [facility] Referrals., Endy Yates 01/31/2024 04:12:22 PM >Pt scheduled 05/16/2024 @ 1:[address] Gusman of [facility] Cardiology, [facility]. Letter to pt., Yolis Zuleta 07/18/2024 02:05:35 PM >per [facility] pt no showed appt Referral Priority Urgent Referral Appointment Date 05/16/2024 Reason Evaluate and treat Diagnosis 1 Liver mass (R16.0) Referral Organization [facility] Referring Provider First Name Crissy Referring Provider Last Name [facility] Referred Provider [facility] Referred Provider Specialty Hepatology General Notes Endy Yates 03/27 12:26:32 PM >Faxed to [facility] Referrals,, Endy Yates 05/18/2024 04:28:12 PM >Pt scheduled 06/07/2024 @ 9:00 AM with Odalys Fountain NP of [facility] GI Dept, [address] [place] [address], 1st floor. Letter to pt. Referral Priority Routine Referral Appointment Date 06/07/2024 Medications Medication SIG (Take, Route, Frequency, Duration) Notes Start Date End Date Status Propranolol HCl ER 60 MG 1 capsule Orall y Once a day for 30 days Active FLUoxetine HCl 20 MG 1 capsule Orally On ce a day for 90 days Active Immunizations Vaccine Route Administration Date Status Comme nts DTaP, 5 pertussis antigens Unknown 04/03/1997 Administe red Status:Completed DTaP, 5 pertussis antigens Unknown 10/20/1999 Administe red Status:Completed DTP Unknown 02/06/1997 Administered Status:Compl eted DTP Unknown 04/28/2002 Administered Status:Compl eted HEP A VACC, PED/ADOL, 2 DOSE Unknown 05/19/2003 Administered Status:Completed HEP A VACC, PED/ADOL, 2 DOSE Unknown 12/23/2006 Administered Status:Completed HEPB VACC PED/ADOL 3 DOSE IM Unknown 1996 Administered Status:Completed HEPB VACC PED/ADOL 3 DOSE IM Unknown 01/04/1997 Administered Status:Completed Hib, unspecified formulation Unknown 02/06/1997 Administered Status:Completed Hib, unspecified formulation Unknown 04/03/1997 Administered Status:Completed Hib, unspecified formulation Unknown 12/19/1999 Administered Status:Completed Hib-Hep B Unknown 10/20/1999 Administered Status:Compl eted IPV, VFC Unknown 04/03/1997 Administered Status:Compl eted IPV, VFC Unknown 10/20/1999 Administered Status:Compl eted IPV, VFC Unknown 12/19/1999 Administered Status:Compl eted IPV, VFC Unknown 04/28/2002 Administered Status:Compl eted Meningococcal MCV4O Unknown 11/19/2008 Administered Sta tus:Completed MMR VACCINE, SC Unknown 10/20/1999 Administered Status: Completed MMR VACCINE, SC Unknown 04/28/2002 Administered Status: Completed OPV Unknown 02/06/1997 Administered Status:Compl eted Td (adult) preservative free Unknown 11/19/2008 Administered Status:Completed VARICELLA IMMUNIZATION Unknown 06/15/2002 Administered Status:Completed VARICELLA IMMUNIZATION Unknown 11/19/2008 Administered Status:Completed Social History Tobacco Use: Social History Observation Description Date Details (start date - stop date) Never Smoker NA - NA Tobacco Use/Smoking Question Answer Notes Are you a nonsmoker Alcohol Screen (Audit-C) Question Answer Notes Did you have a drink contain ing alcohol in the past year? Yes How often did you have a dri nk containing alcohol in the past year? Monthly or less (1 point) How often did you have 6 or more drinks on one occasion in the past year? Never (0 point) Points 1 Interpretation Negative Sexual History Question Answer Notes Had sex in the past 12 months (vaginal, oral, or anal)? Yes with Women only Use protection? Yes How often? Some of the time Prevention strategies discussed: Condoms Have you ever had a Sexually transmitted disease ? No Tobacco use other than smoking: Question Answer Notes Are you an other tobacco user? 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) Active confirmed Vital Signs Heart Rate 71 /min 03/07/2024 Temperature 97.9 degrees Fahrenheit 03/07/2024 Respiratory Rate 16 /min 03/07/2024 Height-cm 170.18 cm 03/07/2024 Blood pressure diastolic 80 mm Hg 03/07/2024 Oximetry 98 % 03/07/2024 Weight-kg 61.51 kg 03/07/2024 Height 67 in 03/07/2024 Blood pressure systolic 113 mm Hg 03/07/2024 Weight 135.6 lbs 03/07/2024 BMI 21.24 kg/m2 03/07/2024 Encounters Encounter Location Date Provider Diagnosis [facility] [address] [place] [address] 10/26/2023 Crissy Barahona Recurrent syncope R5 5 ; Anxiety, generalized F41.1 ; Screening for deficiency anemia Z13.0 ; Routine screening for STI (sexually transmitted infection) Z11.3 ; Screening for diabetes mellitus (DM) Z13.1 ; Thyroid disorder screen Z13.29 ; Lipid screening Z13.220 ; Hypertension screen Z13.6 ; Tobacco abuse Z72.0 and Tobacco abuse counseling Z71.6 [facility] [address] [place] [address] 01/03/2024 Crissy Barahona Liver mass R16.0 ; Recurrent syncope R55 and Current severe episode of major depressive disorder without psychotic features without prior episode F32.2 [facility] [address] [place] [address] 01/18/2024 Crissy Barahona Anxiety, generalized F41.1 ; Current severe episode of major depressive disorder without psychotic features without prior episode F32.2 ; Aberrant tissue Q89.9 ; Chronic fatigue R53.82 and Recurrent syncope R55 [facility] [address] [place] [address] 03/07/2024 [place] Mass of chest wall, right R22.2 and Hepatic lesion K76.9 [facility] [address] [place] [address] 10/27/2023 Crissy Barahona [facility] [address] [place] [address] 01/03/2024 Crissy Barahona [facility] [address] [place] [address] 01/18/2024 Crissy Barahona Aberrant tissue Q89. 9 [facility] [address] [place] [address] 03/23/2024 Crissy Barahona Liver mass R16.0 Assessments Encounter Date Diagnosis (ICD Code) Assessment Notes Treatment Notes Treatment Clinical Notes Section Notes 01/03/2024 Liver mass (ICD-10 - R16.0) 01/18/2024 Aberrant tissue (ICD-10 - Q89.9) 01/18/2024 Anxiety, generalized (ICD-10 - F41.1) Since patient is doing well with current treatment, no changes will be made at this time. Patient denies SI/HI. Should any changes arise or dosing changes be requested, they are to contact us at that time. 01/18/2024 Current severe episode of major depressive disorder without psychotic features without prior episode (ICD-10 - F32.2) Since patient is content with current medication and does not wish to change dose we will continue current treatment. Patient denies SI/HI. Should any changes arise, or dosing changes be requested, they are to contact us at that time. 10/26/2023 Recurrent syncope (ICD-10 - R55) Advised patient to stop using marijuana and drink plenty of water. If he feels like he is going to have a syncopal episode he needs to lay down on the floor. 10/26/2023 Anxiety, generalized (ICD-10 - F41.1) Provided patient with pulse oximeter today. Advised him to monitor his heart rate. Discussed anxiety in detail with patient. Since patient appears to have anxiety I will start the above medication at this time. Patient denies SI/HI. Should any changes arise or dosing changes be requested, they are to contact us at that time. 01/03/2024 Recurrent syncope (ICD-10 - R55) Discussed compliance with patient. Advised patient of adherence to medication. Also discussed importance of patient following through with getting imaging and Holter monitor. Discussed dx, tx, rx, and lifestyle modifications in detail with patient. Discussed red flags, and s/s of concern and resons to f/u. 03/07/2024 Hepatic lesion (ICD-10 - K76.9) follow-up with PCP for MRI follow-up in 2 months 03/07/2024 Mass of chest wall, right (ICD-10 - R22.2) will schedule ultrasound for chest wall soft tissue 03/23/2024 Liver mass (ICD-10 - R16.0) 01/18/2024 Aberrant tissue (ICD-10 - Q89.9) 10/26/2023 Screening for deficiency anemia (ICD-10 - Z13.0) 01/03/2024 Current severe episode of major depressive disorder without psychotic features without prior episode (ICD-10 - F32.2) Since patient continues to have worsening depression we will start medication at this time. Patient denies SI/HI. Should any changes arise or dosing changes be requested, they are to contact us at that time. Discussed dx, tx, rx, and lifestyle modifications in detail with patient. Discussed red flags, and s/s of concern and resons to f/u. 01/18/2024 Chronic fatigue (ICD-10 - R53.82) 10/26/2023 Routine screening for STI (sexually transmitted infection) (ICD-10 - Z11.3) 10/26/2023 Screening for diabetes mellitus (DM) (ICD-10 - Z13.1) 01/18/2024 Recurrent syncope (ICD-10 - R55) Advised patient to keep all upcoming appointments. Will contact him with an appointment for cardiology. 10/26/2023 Thyroid disorder screen (ICD-10 - Z13.29) 10/26/2023 Lipid screening (ICD-10 - Z13.220) 10/26/2023 Hypertension screen (ICD-10 - Z13.6) 10/26/2023 Tobacco abuse (ICD-10 - Z72.0) 10/26/2023 Tobacco abuse counseling (ICD-10 - Z71.6) 10/26/2023 Other 1. Please review the list of medications given to you today against what you have at home. If you find any discrepancies please call our office and give corrections. 2. Our office will contact you about any referrals or test ordered at this visit. 3. If Labs were ordered please do them ss soon as possible. WE WILL CALL YOU IF LABS ARE ABNORMAL. 4. If you see any specialist such as cardiology, endocrinology, orthopedics, pulmonology, etc. please have them fax your most recent patient visit to [phone] PLEASE DOWNLOAD OUR [employer] ENTER CODE: BBFICA This will allow you to access you medical information such as labs, medication list, etc Patient verbalizes understanding and agrees with plan of care. Plan of care was aligned with what matters to the patient. 01/03/2024 Other 1. Please review the list of medications given to you today against what you have at home. If you find any discrepancies please call our office and give corrections. 2. Our office will contact you about any referrals or test ordered at this visit. 3. If Labs were ordered please do them ss soon as possible. WE WILL CALL YOU IF LABS ARE ABNORMAL. 4. If you see any specialist such as cardiology, endocrinology, orthopedics, pulmonology, etc. please have them fax your most recent patient visit to us [phone] PLEASE DOWNLOAD OUR [employer] ENTER CODE: BBFICA This will allow you to access you medical information such as labs, medication list, etc Patient verbalizes understanding and agrees with plan of care. Plan of care was aligned with what matters to the patient. 01/18/2024 Other 1. Please review the list of medications given to you today against what you have at home. If you find any discrepancies please call our office and give corrections. 2. Our office will contact you about any referrals or test ordered at this visit. 3. If Labs were ordered please do them ss soon as possible. WE WILL CALL YOU IF LABS ARE ABNORMAL. 4. If you see any specialist such as cardiology, endocrinology, orthopedics, pulmonology, etc. please have them fax your most recent patient visit to us [phone] PLEASE DOWNLOAD OUR [employer] ENTER CODE: BBFICA This will allow you to access you medical information such as labs, medication list, etc Patient verbalizes understanding and agrees with plan of care. Plan of care was aligned with what matters to the patient. Plan Of Treatment Pending Test Test Name Order Date Electrocardiogram (ECG) : 42732 10/26/19 24 AFP TUMOR MARKER * 03/23/2024 MISCELLANEOUS SO * 03/23/2024 CARDIAC : 24 Hour Holter Monitor : [id number] 01/03/2024 Insurance Providers Payer Name Payer Address Payer Phone Subscriber Number Group Number Insured Name Patient Relationship to Insured Coverage Start Date Coverage End Date [place] [employer] [facility] [address] [place] [address] [id number] Eric Martin Self - patient is the insured [employer] [address] [address] [id number] Eric Martin Self - patient is the insured [employer] [address] [address] [phone] [id number] Marianne Martin Parent Medical (General) History Medical History History ICD Code Distal Tibial Fracture(2010) Asthma J45.909 Recurrent syncope R55 Anxiety, generalized F41.1 Current severe episode of ma jaci depressive disorder without psychotic features without prior episode F32.2 Aberrant tissue Q89.9 Liver mass R16.0 Recurrent syncope R55 Tobacco abuse Z72.0 Surgical History Surgery Date(Month/Year) distal tibia fx 2008 Hospitalization History Reason Date(Month/Year) skating accident +distal tibia fx 2008
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
--- OUTSIDE RECORDS SUMMARY | 2024-08-09 16:47 | XMS_ITS | Encounter Summary ---
Author Organization [facility] Address [address] [place] [address]. [place], [place] [address] [place] [address] Care Team Providers Care Professional Development Manager Name Role Phone None, Provider Primary Care Provider Ivett Medel MD Primary Care Provider +1- [phone] Encounter Details Date Type Department Care Team (Late st Contact Info) Description 11/06/2017 Abstract [facility] CONVERSION [address] [place] [address] , Generic Conversion, Social History Tobacco Use Types Packs/Day Years Used Date Smoking Tobacco: Never Assessed Sex and Gender Information Value Date Recorded Sex Assigned at Not on file Legal Sex Male 10:01 PM MODEL MAKER SCALE Gender Identity Not on file Sexual Orientation Not on file documented as of this encounter Plan of Treatment Not on file documented as of this encounter Visit Diagnoses Not on filedocumented in this encounter Additional Health Concerns Infection Onset Date Last Indicated Resolved Time COVID-19 Rule Out 05/13/2020 05/13/2020 07/12/2020 12:34 AM MODEL MAKER SCALE documented as of this encounter Care Teams Professional Development Manager Relationship Specialty Start Date End Date None, Provider, PCP - General 05/31/19 05/19/22 Ivett Hong MD PCP - General FAMILY PRACTICE 05/20/22 documented as of this encounter
--- OUTSIDE RECORDS SUMMARY | 2024-08-09 16:47 | XMS_ITS | Encounter Summary ---
Author Organization [facility] Address [address] [place] [address]. [place], [place] [address] [place] [address] Care Team Providers Care Customer Support Professional Name Role Phone Ivett Hong MD Primary Care Provider +1- [phone] Encounter Details Date Type Department Care Team (Latest Contact Info) Description 10/17/2022 Travel Social History Tobacco Use Types Packs/Day Years Used Date Smoking Tobacco: Never Assessed Sex and Gender Information Value Date Recorded Sex Assigned at Not on file Legal Sex Male 10:01 PM TRANSMISSION MAINTENANCE SUPERVISOR Gender Identity Not on file Sexual Orientation Not on file COVID-19 Exposure Response Date Recorded In the last 10 days, have yo u been in contact with someone who was confirmed or suspected to have Coronavirus/COVID-19? No / Unsure 10/17/2022 10:24 AM TRANSMISSION MAINTENANCE SUPERVISOR documented as of this encounter Plan of Treatment Not on file documented as of this encounter Visit Diagnoses Not on filedocumented in this encounter Care Teams Customer Support Professional Relationship Specialty Start Date End Date Ivett Hong MD PCP - General FAMILY PRACTICE 05/20/22 documented as of this encounter
--- OUTSIDE RECORDS SUMMARY | 2024-08-09 16:48 | XMS_ITS | Encounter Summary ---
Author Organization [facility] Address [facility]. [place], [place] [address] [place] [address] Care Team Providers Care Jukebox Checker Name Role Phone Unavailable Primary Care Provider Unavailabl e Encounter Details Date Type Department Care Team (Late st Contact Info) Description 08/20/2015 Emergency [facility] Emergency [address] [place] [address] Shelby Aguirre MD [address] [place] [address] Social History Tobacco Use Types Packs/Day Years Used Date Smoking Tobacco: Never Assessed Sex and Gender Information Value Date Recorded Sex Assigned at Not on file Legal Sex Male 10:01 PM RADIOLOGY SERVICES MANAGER Gender Identity Not on file Sexual Orientation Not on file documented as of this encounter Plan of Treatment Not on file documented as of this encounter Visit Diagnoses Diagnosis Contusion of left lower leg Contusion of lower leg documented in this encounter
--- OUTSIDE RECORDS SUMMARY | 2024-08-09 16:48 | XMS_ITS | Encounter Summary ---
Author Organization [facility] Address [facility]. [place], [place] [address] [place] [address] Care Team Providers Care Rural Carrier Name Role Phone Unavailable Primary Care Provider Unavailabl e Encounter Details Date Type Department Care Team (Late st Contact Info) Description 11/10/2008 Emergency [facility] Emergency [address] [place] [address] , Carolyn Serrato MD Social History Tobacco Use Types Packs/Day Years Used Date Smoking Tobacco: Never Assessed Sex and Gender Information Value Date Recorded Sex Assigned at Not on file Legal Sex Male 10:01 PM MANAGER NICU Gender Identity Not on file Sexual Orientation Not on file documented as of this encounter Plan of Treatment Not on file documented as of this encounter Visit Diagnoses Diagnosis Headache documented in this encounter
--- OUTSIDE RECORDS SUMMARY | 2024-08-09 16:48 | XMS_ITS | Encounter Summary ---
Author Organization [facility] Address [facility]. [place], [place] [address] [place] [address] Care Team Providers Care Pediatric Anesthesiologist Name Role Phone Unavailable Primary Care Provider Unavailabl e Encounter Details Date Type Department Care Team (Late st Contact Info) Description 08/24/2009 Emergency [facility] Emergency [address] [place] [address] Social History Tobacco Use Types Packs/Day Years Used Date Smoking Tobacco: Never Assessed Sex and Gender Information Value Date Recorded Sex Assigned at Not on file Legal Sex Male 10:01 PM OUTDOOR RECREATION SPECIALIST Gender Identity Not on file Sexual Orientation Not on file documented as of this encounter Plan of Treatment Not on file documented as of this encounter Visit Diagnoses Diagnosis Acute pharyngitis documented in this encounter
--- OUTSIDE RECORDS SUMMARY | 2024-08-09 16:48 | XMS_ITS | Encounter Summary ---
Author Organization [facility] Address [facility]. [place], [place] [address] [place] [address] Care Team Providers Care Commercial Litigation Paralegal Name Role Phone Unavailable Primary Care Provider Unavailabl e Encounter Details Date Type Department Care Team (Late st Contact Info) Description 04/20/2010 Emergency [facility] Emergency [address] [place] [address] Alonzo Davis MD [address] [place] [address] Social History Tobacco Use Types Packs/Day Years Used Date Smoking Tobacco: Never Assessed Sex and Gender Information Value Date Recorded Sex Assigned at Not on file Legal Sex Male 10:01 PM FIRE PREVENTION CAPTAIN Gender Identity Not on file Sexual Orientation Not on file documented as of this encounter Plan of Treatment Not on file documented as of this encounter Visit Diagnoses Diagnosis Closed fracture of metacarpal bone Closed fracture of metacarpal bone(s), site unspecified documented in this encounter
--- OUTSIDE RECORDS SUMMARY | 2024-08-09 16:48 | XMS_ITS | Encounter Summary ---
Author Organization [facility] Address [facility]. [place], [place] [address] [place] [address] Care Team Providers Care Railway Track Worker Name Role Phone Unavailable Primary Care Provider Unavailabl e Encounter Details Date Type Department Care Team (Late st Contact Info) Description 09/02/2011 Emergency [facility] Emergency [address] [place] [address] Luciano Gerber PA-C [address] [place] [address] Social History Tobacco Use Types Packs/Day Years Used Date Smoking Tobacco: Never Assessed Sex and Gender Information Value Date Recorded Sex Assigned at Not on file Legal Sex Male 10:01 PM ROBOTIC MACHINE OPERATOR Gender Identity Not on file Sexual Orientation Not on file documented as of this encounter Plan of Treatment Not on file documented as of this encounter Visit Diagnoses Diagnosis Painful respiration documented in this encounter
--- OUTSIDE RECORDS SUMMARY | 2024-08-09 16:48 | XMS_ITS | Encounter Summary ---
Author Organization [facility] Address [facility] [place] [address] [place] [address] Care Team Providers Care Fly Tier Name Role Phone Unavailable Primary Care Provider Unavailabl e Encounter Details Date Type Department Care Team (Late st Contact Info) Description 11/16/2014 Emergency [facility] Emergency [address] [place] [address] Jeremy Osborn MD [address] [facility] [address] [place] [address] Social History Tobacco Use Types Packs/Day Years Used Date Smoking Tobacco: Never Assessed Sex and Gender Information Value Date Recorded Sex Assigned at Not on file Legal Sex Male 10:01 PM REAL ESTATE LEASING MANAGER Gender Identity Not on file Sexual Orientation Not on file documented as of this encounter Plan of Treatment Not on file documented as of this encounter Visit Diagnoses Diagnosis Exposure to sexually transmitted disease (STD) Contact with or exposure to other communicable diseases documented in this encounter
--- OUTSIDE RECORDS SUMMARY | 2024-08-09 16:48 | XMS_ITS | Encounter Summary ---
Author Organization [facility] Address [facility]6 [facility]. 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
--- OUTSIDE RECORDS SUMMARY | 2024-08-09 23:10 | XMS_ITS | Clinical Summary ---
Author Organization [facility] Address [facility] 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
--- OUTSIDE RECORDS SUMMARY | 2024-08-09 23:10 | XMS_ITS | Encounter Summary ---
Author Organization [facility] Address [address] [place] [address]. 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
--- OUTSIDE RECORDS SUMMARY | 2024-08-09 23:10 | XMS_ITS | Encounter Summary ---
Author Organization [facility] Address [facility]6 [facility]. [place], [place] [address] [place] [address] Care Team Providers Care Public Health Aides Teacher Name Role Phone Ivett Hong MD Primary Care Provider +1- [phone] Reason for Referral * Imaging (Routine) - Closed Specialty Diagnoses / Procedures Referred By Gavin t Referred To Contact RADIOLOGY Diagnoses Mass of chest wall, right Procedures US SOFT TISS CHEST WALL OR UPR BACK Kelly Cordova MD [address] [place] [address] Phone: tel: fax: Referral ID Status Reason Start Date Expiration Date V isits Requested Visits Authorized [id number] Closed Ultrasound 03/08/2024 03/08/2025 1 1 Reason for Visit * Imaging (Routine) - Closed Specialty Diagnoses / Procedures Referred By Gavin perez Referred To Contact RADIOLOGY Diagnoses Mass of chest wall, right Procedures US SOFT TISS CHEST WALL OR UPR BACK Kelly Cordova MD [address] [place] [address] Phone: tel: fax: Referral ID Status Reason Start Date Expiration Date V isits Requested Visits Authorized [id number] Closed Ultrasound 03/08/2024 03/08/2025 1 1 Encounter Details Date Type Department Care Team (Latest Contact Info) Description 03/22/2024 1:30 PM CDT - 03/22/2024 11:59 PM CDT Hospital Encounter [facility] - [address] [place] [address] Kelly Cordova MD [address] [place] [id number] Discharge Disposition: Home or Self Care (Routine Discharge) Social History Tobacco Use Types Packs/Day Years Used Date Smoking Tobacco: Every Day Cigarettes Smokeless Tobacco: Never Sex and Gender Information Value Date Recorded Sex Assigned at Not on file Legal Sex Male 10:[address] SECURITY Gender Identity Not on file Sexual Orientation [...] right documented in this encounter Care Teams Public Health Aides Teacher Relationship Specialty Start Date End Date Ivett Hong MD PCP - General FAMILY PRACTICE 05/20/22 documented as of this encounter
--- OUTSIDE RECORDS SUMMARY | 2024-08-09 23:10 | XMS_ITS | Encounter Summary ---
Author Organization [facility] Address [address] [place] [address]. 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
--- OUTSIDE RECORDS SUMMARY | 2024-08-09 23:10 | XMS_ITS | Encounter Summary ---
Author Organization [facility] Address [facility]6 [facility]. [place], [place] [address] [place] [address] Care Team Providers Care Link Wire Fabric Machine Operator Name Role Phone Ivett Hong MD Primary Care Provider +1- [phone] Reason for Referral * Imaging (Routine) - Closed Specialty Diagnoses / Procedures Referred By Gavin perez Referred To Contact RADIOLOGY Diagnoses Recurrent syncope Procedures USE ECHOCARDIOGRAM Zoltan Barahona NP [address] [place] [address] Phone: tel: fax: Referral ID Status Reason Start Date Expiration Date V isits Requested Visits Authorized [id number] Closed Echocardiogr am 12/11/2023 02/09/2024 1 1 Reason for Visit * Imaging (Routine) - Closed Specialty Diagnoses / Procedures Referred By Gavin perez Referred To Contact RADIOLOGY Diagnoses Recurrent syncope Procedures USE ECHOCARDIOGRAM Zoltan Barahona NP [address] [place] [address] Phone: tel: fax: Referral ID Status Reason Start Date Expiration Date V isits Requested Visits Authorized [id number] Closed Echocardiogr am 12/11/2023 02/09/2024 1 1 Encounter Details Date Type Department Care Team (Latest Contact Info) Description 01/13/2024 2:47 PM CDT - 01/13/2024 11:59 PM CDT Hospital Encounter [facility] Non Invasive Cardiology 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 St.Date: ?? 01/13/2024 ? Refer.MD: ??[id number] GABBI GUOSSICA M ? EWDPROV ?EWDPROV Exam Time: 2:50:00 PM ? Study Type:ECHO WITH CARDIAC DOPPLER COMP Height: ?67 in ? Weight: ?124 lb ? BSA: ? 1.65 m2 ?Age: ??1995,28Y ? Sex: ? M ? BP: ?132/89 ? HR: ?80 bpm ?Sonogrphr: Box, Auna RDCS ? Pat. Stat.:Outpatient ?CPT - 4: ?[id number] ? Reason for Study:Recurrent syncope Procedures: 2D, [...] ?? Value ?148 g ? LV Mass [id number] ?? Value ? 89.7 g/m2 ? Right [...] ?? Right Ventricle ??3.34 cm ? Major [place] ?4.88 cm ?MMODE TA ?? Tricuspid Annul ??2.96 cm ? <Electronic Signature> 01/14/2024 04:02 PM Luciano Rivera M.D. Procedure Note Luciano Rivera MD - 01/14/2024 Echocardiography Report Pat.Name: FELISA OLIVERA Pat.ID: [id number] .Date: 01/13/2024 Refer.MD: [id number] GABBI Desouza EWDPROV EWDPROV Exam Time: 2:50:00 PM Study Type:ECHO WITH CARDIAC DOPPLER COMP Height: 67 in Weight: 124 lb BSA: 1.65 m2 Age: 5 1995,28Y Sex: M BP: 132/89 HR: 80 bpm Sonogrphr: Angel Ko [facility] Pat. Stat.:Outpatient CPT - 4: [id number] Reason for Study:Recurrent syncope Procedures: 2D, M-mode, [...] Mass 2D Value 148 g LV Mass [id number] Value 89.7 g/m2 Right Ventricle Right Ventricle [...] Right Ventricle Right Ventricle 3.34 cm Major [place] 4.88 cm MMODE TA Tricuspid Annul 2.96 cm <Electronic Signature> 01/14/2024 04:02 PM Luciano Rivera M.D. Zoltan Barahona MANAGER CONCRETE ECHO Final Result documented in this encounter Visit Diagnoses Diagnosis Recurrent syncope documented in this encounter Care Teams Link Wire Fabric Machine Operator Relationship Specialty Start Date End Date Ivett Hong MD PCP - General FAMILY PRACTICE 05/20/22 documented as of this encounter
--- OUTSIDE RECORDS SUMMARY | 2024-08-09 23:10 | XMS_ITS | Encounter Summary ---
Author Organization [facility] Address [address] [place] [address]. 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
--- OUTSIDE RECORDS SUMMARY | 2024-08-09 23:11 | XMS_ITS | Encounter Summary ---
Author Organization [facility] Address On license of [facility]6 [facility] 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
--- OUTSIDE RECORDS SUMMARY | 2024-08-09 23:11 | XMS_ITS | Encounter Summary ---
Author Organization [facility] Address [address] [place] [address]. 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 Gender Identity Not on file Sexual Orientation Not on file documented as of this encounter Plan of Treatment Not on file documented as of this encounter Visit Diagnoses Not on filedocumented in this encounter Additional Health Concerns Infection Onset Date Last Indicated Resolved Time COVID-19 Rule Out 05/13/2020 05/13/2020 07/12/2020 12:34 AM CREATIVE SERVICES SPECIALIST documented as of this encounter Care Teams Supervisor Electronics Processing Relationship Specialty Start Date End Date None, Provider, PCP - General 05/31/19 05/19/22 Ivett Hong MD PCP - General FAMILY PRACTICE 05/20/22 documented as of this encounter
--- OUTSIDE RECORDS SUMMARY | 2024-08-09 23:11 | XMS_ITS | Encounter Summary ---
Author Organization [facility] Address [facility]6 [facility]. 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
--- OUTSIDE RECORDS SUMMARY | 2024-08-09 23:11 | XMS_ITS | Encounter Summary ---
Author Organization [facility] Address [address] [place] [address]. [place] [address] [place] [address] Care Team Providers Care Industrial Gas Fitter Name Role Phone Ivett Hong MD Primary Care Provider +1- [phone] Reason for Visit * Reason Comments Request Note (Return To Work) Encounter Details Date Type Department Care Team (Late st Contact Info) Description 10/28/2022 1:11 PM RAIL LAYER - 10/28/2022 2:11 PM RAIL LAYER Emergency [facility] Emergency [address] [place], [place] [address] Jose Daniel, TINO [address] [place] [address] Request Note (Return To Work) Discharge Disposition: Home or Self Care (Routine Discharge) Social History Tobacco Use Types Packs/Day Years Used Date Smoking Tobacco: Never Assessed Sex and Gender Information Value Date Recorded Sex Assigned at Not on file Legal Sex Male 10:01 PM RAIL LAYER Gender Identity Not on file Sexual Orientation Not on file COVID-19 Exposure Response Date Recorded In the last 10 days, have yo u been in contact with someone who was confirmed or suspected to have Coronavirus/COVID-19? No / Unsure 10/28/2022 12:38 PM RAIL LAYER documented as of this encounter Last Filed Vital Signs Vital Sign Reading Time Taken Comments Blood Pressure 132/86 10/28/2022 12:48 PM RAIL LAYER Pulse 58 10/28/2022 12:48 PM RAIL LAYER Temperature 36.7 ??C (98 ??F) 10/28/2022 12:48 PM RAIL LAYER Respiratory Rate 16 10/28/2022 12:48 PM RAIL LAYER Oxygen Saturation 98% 10/28/2022 12:48 PM RAIL LAYER Inhaled Oxygen Concentration - - Weight 62.2 kg (137 lb 2 oz) 10/28/2022 12:48 PM RAIL LAYER Height 170.2 cm (5' 7 ) 10/28/2022 12:48 PM RAIL LAYER Body Mass Index 21.48 10/28/2022 12:48 PM RAIL LAYER documented in this encounter Discharge Instructions * Discharge Instructions* Jose Daniel NP - 10/28/2022 1:17 PM RAIL LAYER Follow up with Dr. Smith as previously instructed. LAYER documented in this encounter Medications at Time [...] Lawrence MD at 11/02/2022 7:35 AM CDT LAYER * Kane Stevenson RN - 10/28/2022 12:39 PM CST PTsays he was seen here 2 weeks ago for a broken wrist and needs a note to release him to go back to regular working schedule. LAYER documented in this encounter Plan of Treatment Not on file documented as of this encounter Visit Diagnoses Diagnosis Return to work exam- Primary Other specified examination documented in this encounter Care Teams Industrial Gas Fitter Relationship Specialty Start Date End Date Ivett Hong MD PCP - General FAMILY PRACTICE 05/20/22 documented as of this encounter
--- OUTSIDE RECORDS SUMMARY | 2024-08-09 23:11 | XMS_ITS | Encounter Summary ---
Author Organization [facility] Address [address] [place] [address]. [place], [place] [address] [place] [address] Care Team Providers Care Director Human Services Name Role Phone Ivett Hong MD Primary Care Provider +1- [phone] Encounter Details Date Type Department Care Team (Latest Contact Info) Description 10/17/2022 Travel Social History Tobacco Use Types Packs/Day Years Used Date Smoking Tobacco: Never Assessed Sex and Gender Information Value Date Recorded Sex Assigned at Not on file Legal Sex Male 10:01 PM DIRECTOR OF PARTNER MARKETING Gender Identity Not on file Sexual Orientation Not on file COVID-19 Exposure Response Date Recorded In the last 10 days, have yo u been in contact with someone who was confirmed or suspected to have Coronavirus/COVID-19? No / Unsure 10/17/2022 10:24 AM DIRECTOR OF PARTNER MARKETING documented as of this encounter Plan of Treatment Not on file documented as of this encounter Visit Diagnoses Not on filedocumented in this encounter Care Teams Director Human Services Relationship Specialty Start Date End Date Ivett Hong MD PCP - General FAMILY PRACTICE 05/20/22 documented as of this encounter
--- OUTSIDE RECORDS SUMMARY | 2024-08-09 23:11 | XMS_ITS | Encounter Summary ---
Author Organization [facility] Address [address] [place] [address]. 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
--- OUTSIDE RECORDS SUMMARY | 2024-08-09 23:11 | XMS_ITS | Encounter Summary ---
Author Organization [facility] Address [facility]. 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
--- OUTSIDE RECORDS SUMMARY | 2024-08-09 23:11 | XMS_ITS | Encounter Summary ---
Author Organization [facility] Address [address] [place] [address]. [place], [place] [address] [place] [address] Care Team Providers Care Trauma Nurse Name Role Phone None, Provider MD Primary Care Provider Unavaila ble Reason for Visit * Reason Comments Suspected Coronavirus (Covid-19) Encounter Details Date Type Department Care Team (Late st Contact Info) Description 05/13/2020 9:15 AM CDT - 05/13/2020 9:42 AM CDT Emergency [facility] Emergency [address] [place], [place] [address] Samuel Umaña MD [address] [place] [address] Suspected Coronavirus (Covid-19) Discharge Disposition: Home or Self Care (Routine Discharge) Social History Tobacco Use Types Packs/Day Years Used Date Smoking Tobacco: Never Assessed Sex and Gender Information Value Date Recorded Sex Assigned at Not on file Legal Sex Male 10:01 PM EQUIPMENT MAN Gender Identity Not on file Sexual Orientation [...] good: all 5's Thank you for selecting [facility] Emergency Department Because of your symptoms and [...] least 20 seconds. Use alcohol based hand clinical informatics director that contains at least60% alcohol. 7. Do [...] 5 business days. Immediately: Call your local [facility] health department you develop symptoms or plan to travel outside your country. You can call the [place] Department of Public Health at [phone]. After hours or weekends [phone]. * Attachments The following attachments cannot be sent through Care Everywhere. * Viral Syndrome Discharge Instructions (Monegasque) documented in this encounter Medications at Time [...] Patient refused to undergo nasal swabbing for Cahnd testing. * Samuel Umaña MD - 05/13/2020 9:22 AM CDT Chief Complaint Chief Complaint Patient presents with ??? Suspected Coronavirus (Covid-19) History of Present Illness 24-year-old male presents the emergency department 3-day complaint of loss of taste and smell as well as generalized myalgias. Denies fever chills cough congestion nausea vomiting diarrhea. Works at [employer] [place] where there is been positive cases is concerned about [employer]. Medical History ALLERGIES: No Known Allergies MEDICATIONS: [...] Rule Out 05/13/2020 05/13/2020 07/12/2020 12:34 AM EQUIPMENT MAN documented as of this encounter Care Teams Trauma Nurse Relationship Specialty Start Date End Date None, Provider, PCP - General 05/31/19 05/19/22 documented as of this encounter
--- OUTSIDE RECORDS SUMMARY | 2024-08-09 23:11 | XMS_ITS | Encounter Summary ---
Author Organization [facility] Address [address] [place] [address]. [place], [place] [address] [place] [address] Care Team Providers Care Clinical Trials Assistant Name Role Phone Ivett Hong MD Primary Care Provider +1- [phone] Reason for Referral * Imaging (Urgent) - New Request Specialty Diagnoses / Procedures Referred By Contac t Referred To Contact RADIOLOGY Procedures CTA CHEST+CT ABD+PEL W CON Chiqui Dorado NP [address] [place] [address] Phone: tel: fax: Referral ID Status Reason Start Date Expiration Date V isits Requested Visits Authorized [id number] New Request 01/01/2024 12/31/2024 1 1 * Imaging (Emergency) - New Request Specialty Diagnoses / Procedures Referred By Contac t Referred To Contact RADIOLOGY Procedures US ABD LIMITED Chiqui Dorado NP [address] [place] [address] Phone: tel: fax: Referral ID Status Reason Start Date Expiration Date V isits Requested Visits Authorized [id number] New Request 01/01/2024 12/31/2024 1 1 Reason for Visit * Reason Comments Chest Pain Encounter Details Date Type Department Care Team (Late st Contact Info) Description 01/01/2024 2:28 PM CDT - 01/01/2024 7:48 PM CDT Emergency [facility] Emergency [address] [place] [address] Chiqui Dorado, TINO [address] [place], [place] [address] Chest Pain Discharge Disposition: Home or Self Care (Routine Discharge) Social History Tobacco Use Types Packs/Day Years Used Date Smoking Tobacco: Every Day Cigarettes Smokeless Tobacco: Never Tobacco Cessation:Ready to Q uit: Not Asked; Counseling Given: Not Answered Sex and Gender Information Value Date Recorded Sex Assigned at Not on file 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 * Gastritis ED (Yi) documented in this encounter Medications at Time [...] marijuana. He reports a family history of [place] of his father at age 54 and uncle at age 43. He denies shortness of breath, nausea, vomiting, diarrhea, fever or chills. He is otherwise at his baseline state physical health History provided by: Patient lehr cutter used: No Medical History ALLERGIES: Review of [...] Head: Normocephalic. Nose: Nose normal. Mouth/Throat: Lips: Sexton. Cardiovascular: Rate and Rhythm: Normal rate and [...] encounter of 01/01/24 ECG 12 lead Narrative [facility] Test Date: 2024-01-01 Pat Name: FELISA OLIVERA Department: 70 Room: [facility] Gender: Male Process Architect: BROOKLYN : 1995 Requested By: CHIQUI GOLDSTEIN Order Number: [id number] Reading MD: Shalom Grajeda Measurements Intervals [place] Rate: 51 P: 68 [place]: 137 QRS: 82 QRSD: 92 T: 64 QT: 380 QTc: 352 Interpretive Statements SINUS BRADYCARDIA WITH SINUS ARRHYTHMIA EARLY REPOLARIZATION [ST ELEVATION WITH NORMALLY INFLECTED T-WAVE] ECG 12 lead Narrative [facility] Test Date: 2024-01-01 Pat Name: FELISA OLIVERA Department: 70 Room: [facility] Gender: Male Process Architect: BROOKLYN : 1995 Requested By: CHQIUI GOLDSTEIN Order Number: [id number] Reading MD: Shalom Grajeda Measurements Intervals [place] Rate: 62 P: 73 [place]: 147 QRS: 85 QRSD: 90 T: 67 [...] ABD+PEL W CON Final Result by User, [email or web address] (12/31 1921) Examination: CTA chest. Clinical Information: [...] US ABD LIMITED Final Result by User, [id number] (01/01 1756) Exam: Right upper quadrant ultrasound [...] XR CHEST PA+LAT Final Result by User, [id number] (12/31 755) Examination: Chest x-ray 2 view Exam date/time: [...] marijuana. He reports a family history of [place] of his father at age 54 and [...] evidence of acute/active cardiopulmonary disease. [ALICIA] 1603 [place] hear score 1. Updated on all findings. [...] 100 mL (100 mLs Intravenous Given 01/01/241816) pwnxkcyao-jqmpvtsy-eprezgovmoy (MYLANTA MAXIMUM STRENGTH) [id number] mg/30mL suspension (30 mLs Oral Given 01/01/241944) Clinical Impression Epigastric pain (Primary) Chest pain Liver mass Disposition: Discharge Discharge Medication List as of 01/01/2024 7:33 PM Follow-up: Ivett Hong MD [address] [facility] [id number] Chiqui Goldstein NP 01/03/2024 Chiqui Goldstein NP [...] Reading (01/01/2024 6:33 PM CDT) Narrative Riaz Lawrnece MD - 01/01/2024 6:33 PM CDT Chiqui Goldstein NP ? 01/03/2024 ??8:24 PM EKG Reading Date/Time: 01/01/2024 6:33 PM Performed by: Chiqui Goldstein NP Authorized by: Chiqui Goldstein NP ??Interpreted by ED physician (Dr. Lawrence) Comparison: compared with previous ECG from 01/01/2024 Similar to previous ECG Rhythm: sinus rhythm BPM: 62 Clinical impression: non-specific ECG us Chiqui Goldstein DIRECTOR SOCIAL WELFARE [place] CARDIOVASCULAR SYSTE M SERVICES Final Result * ECG 12 lead (01/01/2024 6:33 PM CDT) 01/01/2024 6:33 PM CDT Narrative [facility] - 01/02/2024 5:17 AM CDT ?SJS-ED ? Test Date: ?2024-01-01 Pat Name: ? FELISA OLIVERA ?Department: ?? 70 ? Room: ? [id number] Gender: ? Male ? Process Architect: ?? CP : ?1995 ? Requested By: CHIQUI GOLDSTEIN Order Number: [id number] ? Reading MD: ?? Shalom Taras ? Measurements Intervals ?[place] ? Rate: ? 62 ? P: ?73 [place]: ? 147 ?QRS: ?85 QRSD: ? 90 ? T: ?67 QT: ? 367 ? QTc: ?374 ? Interpretive Statements SINUS RHYTHM WITH SINUS ARRHYTHMIA MINIMAL VOLTAGE CRITERIA FOR LVH, CONSIDER NORMAL VARIANT ??[MEETS CRITERIA IN ONE OF: R(aVL), S(V1), R(V5), R(V5/V6)+S(V1)] EARLY REPOLARIZATION ??[ST ELEVATION WITH NORMALLY INFLECTED T-WAVE] Procedure Note Shalom Grajeda MD - 01/02/2024 [facility] Test Date: 2024-01-01 Pat Name: FELISA OLIVERA Department: 70 Room: [id number] Gender: Male Process Architect: BROOKLYN : 1995 Requested By: CHIQUI CLARK Order Number: [id number] Reading MD: Shalom Grajeda Measurements Intervals [place] Rate: 62 P: 73 NJ: 147 QRS: 85 QRSD: 90 T: 67 QT: 367 QTc: 374 Interpretive Statements SINUS RHYTHM WITH SINUS ARRHYTHMIA MINIMAL VOLTAGE CRITERIA FOR LVH, CONSIDER NORMAL VARIANT [MEETS CRITERIAIN ONE OF: R(aVL), S(V1), R(V5), R(V5/V6)+S(V1)] EARLY REPOLARIZATION [ST ELEVATION WITH NORMALLY INFLECTED T-WAVE] us Chiqui Goldstein DIRECTOR SOCIAL WELFARE ECG ORDERABLES Final R esult [facility] RAD * CTA CHEST+CT ABD+PEL W CON [...] MD, 01/01/2024 6:37 PM us Chiqui Goldstein DIRECTOR SOCIAL WELFARE CT Final R esult * TROPONIN, QUANT (01/01/2024 6:10 PM CDT) TROPONIN I HIGH SENSITIVITY 27 0 - 78 ng/L 01/01/2024 6:43 PM CDT [facility] 01/01/2024 6:10 PM CDT Chiquibeatrice Fajardonton Mike DIRECTOR SOCIAL WELFARE LABORATORY Final R esult [facility] [address] [place] [address], [place] [phone] * US ABD LIMITED (01/01/2024 5:52 PM [...] Lamin Arthur MD, 01/01/2024 5:52 PM Chiqui Goldstein NP ULTRASOUND Final R esult * XR [...] impression: non-specific ECG us Chiqui Goldstein NP [place] CARDIOVASCULAR SYSTE M SERVICES Final Result * ECG 12 lead (01/01/2024 3:18 PM CDT) 01/01/2024 3:18 PM CDT [facility] - 01/02/2024 5:14 AM CDT ?SJS-ED ? Test Date: ?2024-01-01 Pat Name: ? FELISA OLIVERA ?Department: ?? 70 ? Room: ? [id number] Gender: ? Male ? Process Architect: ?? CP : ?1995 ? Requested By: CHIQUI GOLDSTEIN Order Number: [id number] ? Reading MD: ?? Shalom Grajeda ? Measurements Intervals ?[place] ? Rate: ? 51 ? P: ?68 [place]: ? 137 ?QRS: ?82 QRSD: ? 92 ? T: ?64 QT: ? 380 ? QTc: ?352 ? Interpretive Statements SINUS BRADYCARDIA WITH SINUS ARRHYTHMIA EARLY REPOLARIZATION ??[ST ELEVATION WITH NORMALLY INFLECTED T-WAVE] Procedure Note Shalom Grajeda MD - 01/02/2024 [facility] Test Date: 2024-01-01 Pat Name: FELISA OLIVERA Department: 70 Room: [facility] Gender: Male Process Architect: BROOKLYN : 1995 Requested By: CHIQUI CLARK Order Number: [id number] Reading MD: Shalom Grajeda Measurements Intervals [place] Rate: 51 P: 68 [place]: 137 QRS: 82 QRSD: 92 T: 64 QT: 380 QTc: 352 Interpretive Statements SINUS BRADYCARDIA WITH SINUS ARRHYTHMIA EARLY REPOLARIZATION [ST ELEVATION WITH NORMALLY INFLECTED T-WAVE] Chiqui Goldstein DIRECTOR SOCIAL WELFARE ECG ORDERABLES Final R esult Performing Organization Address [facility] Co de Phone Number [facility] RAD * TROPONIN, QUANT (01/01/2024 3:14 PM CDT) [facility] TROPONIN I HIGH SENSITIVITY 27 0 - 78 ng/L 01/01/2024 3:53 PM CDT [facility] 01/01/2024 3:14 PM CDT Chiqui Goldstein DIRECTOR SOCIAL WELFARE LABORATORY Final R esult Performing Organization Address [facility] de Phone Number [facility] [address] [place] [address], [phone] * LIPASE (01/01/2024 3:14 PM CDT) [facility] LIPASE 21 13 - 75 UNITS/L 01/01/2024 3:53 PM CDT [facility] 01/01/2024 3:14 PM CDT Chiqui Goldstein DIRECTOR SOCIAL WELFARE LABORATORY Final R esult Performing Organization Address [facility] de Phone Number [facility] [address] [place] [address], [phone] * (ABNORMAL) HEPATIC FUNCTION PANEL (01/01/2024 3:14 PM CDT) Pathologist [facility] BILIRUBIN TOTAL S/P/B 2.0(H) 0.2 - 1.0 MG/DL 01/01/2024 3:53 PM CDT [facility] BILIRUBIN DIRECT S/P/B 0.4(H) 0.0 - 0.2 MG/DL 01/01/2024 3:53 PM CDT [facility] ALKALINE PHOSPHATASE S/P/B 109 45 - 115 U/L 01/01/2024 3:53 PM CDT [facility] AST 50(H) 15 - 37 U/L 01/01/2024 3:53 PM CDT [facility] ALT 46 16 - 61 U/L 01/01/2024 3:53 PM CDT [facility] TOTAL PROTEIN S/P/B 7.7 6.4 - 8.2 G/DL 01/01/2024 3:53 PM CDT [facility] ALBUMIN S/P/B 4.4 3.4 - 5.0 G/DL 01/01/2024 3:53 PM CDT [facility] 01/01/2024 3:14 PM CDT Chiqui Goldstein NP LABORATORY Final R esult [facility] [address] [place] [address], [phone] * BASIC METABOLIC PANEL (01/01/2024 3:14 PM CDT) SODIUM S/P/B 136 136 - 145 MMOL/L 01/01/2024 3:53 PM CDT [facility] POTASSIUM S/P/B 4.0 3.5 - 5.1 MMOL/L 01/01/2024 3:53 PM CDT [facility] CHLORIDE S/P/B 102 98 - 107 MMOL/L 01/01/2024 3:53 PM CDT [facility] CO2 27.1 21.0 - 32.0 MMOL/L 01/01/2024 3:53 PM CDT [facility] GLUCOSE 80 74 - 106 MG/DL 01/01/2024 3:53 PM CDT [facility] BUN 14 7 - 18 MG/DL 01/01/2024 3:53 PM CDT [facility] CREATININE S/P/B 0.94 0.70 - 1.30 MG/DL 01/01/2024 3:53 PM CDT [facility] CALCIUM S/P/B 9.3 8.5 - 10.1 MG/DL 01/01/2024 3:53 PM CDT [facility] ANION GAP 6.9 5.0 - 15.0 MMOL/L 01/01/2024 3:53 PM CDT [facility] OSMOLALITY (CALC) 281 MOSM/KG 024 3:53 PM CDT [facility] Comment:REFERENCE RANGE NOT ESTABLISHED GFR ESTIMATE >90 >90 ML/MIN/1. 73 M2 01/01/2024 3:53 PM CDT [facility] GFR NOTES GFR REFERENCE S: 01/01/2024 3:53 PM CDT [facility] Comment: THE ESTIMATED GFR IS [...] Chiqui Goldstein NP LABORATORY Final R esult [facility] [address] [place] [address], [phone] * (ABNORMAL) CBC W/DIFF AUTOMATED (01/01/2024 3:14 PM CDT) WBC 4.33 4.00 - 10.80 x10'3/uL 01/01/2024 3:22 PM CDT [facility] RBC 4.87 4.50 - 6.10 x10'6/uL 01/01/2024 3:22 PM CDT [facility] HGB 15.0 13.0 - 18.0 G/DL 01/01/2024 3:22 PM CDT [facility] HCT 43.8 37.0 - 52.0 % 01/01/2024 3:22 PM CDT [facility] MCV 89.9 78.0 - 100.0 FL 01/01/2024 3:22 PM CDT [facility] MCH 30.8 27.0 - 31.0 PG 01/01/2024 3:22 PM CDT [facility] MCHC 34.2 33.0 - 36.0 G/DL 01/01/2024 3:22 PM CDT [facility] RDW 12.1 11.5 - 14.5 % 01/01/2024 3:22 PM CDT [facility] PLT 356(H) 150 - 350 x10'3/uL 01/01/2024 3:22 PM CDT [facility] MPV 9.1 7.4 - 10.4 FL 01/01/2024 3:22 PM CDT [facility] ABS. NEUTROPHILS 2.86 1.60 - 8.30 x10'3/uL 01/01/2024 3:22 PM CDT [facility] ABS. LYMPHOCYTES 1.13 0.80 - 4.70 x10'3/uL 01/01/2024 3:22 PM CDT [facility] ABS. MONOCYTES 0.21 0.00 - 1.50 x10'3/uL 01/01/2024 3:22 PM CDT [facility] ABS. EOSINOPHILS 0.05 0.00 - 0.40 x10'3/uL 01/01/2024 3:22 PM CDT [facility] ABS. BASOPHILS 0.07 0.00 - 0.20 x10'3/uL 01/01/2024 3:22 PM CDT [facility] ABS. IMMATURE GRANULOCYTES 0.01 0.00 - 0.03 x10'3/uL 01/01/2024 3:22 PM CDT [facility] ABS. NUCLEATED RBC'S 0.00 0.0 x10'3/uL 01/01/2024 3:22 PM CDT [facility] 01/01/2024 3:14 PM CDT Chiqui Goldstein NP LABORATORY Final R esult [facility] [address] [place] [address], [phone] documented in this encounter Visit Diagnoses Diagnosis [...] at 1515 Given 01/01/2024 3:33 PM CDT feudvxdmw-ncezjsmq-ztqloskttka (MYLANT[employer] MAXIMUM STRENGTH) [id number] mg/30mL suspension 30 mL, Oral, Once, 1 [...] (Given - Provid er: Benjamin Edwards RN) suogiwlsw-fhzvalpf-ibfrsyncsay (MYLANTA MAXIMUM STRENGTH) [id number] mg/30mL suspension (COMPLETED) 30 mL, Oral, Once, [...] RN) documented in this encounter Care Teams Clinical Trials Assistant Relationship Specialty Start Date End Date Ivett Hong MD PCP - General FAMILY PRACTICE 05/20/22 documented as of this encounter
--- OUTSIDE RECORDS SUMMARY | 2024-08-09 23:11 | XMS_ITS | Encounter Summary ---
Author Organization [facility] Address [address] [place] [address]. [place] [address] [place] [address] Care Team Providers Care Trap Setter Name Role Phone Ivett Hong MD Primary Care Provider +1- [phone] Reason for Visit * Reason Comments Abdominal Pain Vomiting Encounter Details Date Type Department Care Team (Late st Contact Info) Description 05/20/2022 5:57 PM CDT - 05/20/2022 6:41 PM CDT Emergency [facility] Emergency [address] [place], [place] [id number] Chad Tirado MD [address] [place] [address] Abdominal Pain; Vomiting Discharge Disposition: Home or Self Care (Routine Discharge) Social History Tobacco Use Types Packs/Day Years Used Date Smoking Tobacco: Never Assessed Sex and Gender Information Value Date Recorded Sex Assigned at Not on file 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 * Viral Gastroenteritis Discharge Instructions, Adult (Dutch) documented in this encounter Medications at Time of Discharge hydrocodone-acetamin ophen 5-325 MG tabletIndications:Ac coquille Pain < 3 Day Supply Take 1 [...] Wed05/25/2022 at 2359, Eprescribe Class: Eprescribe Pharmacy: [facility]/pharmacy #[id number] - [address] ( #: [phone]) Disposition: Discharge Follow Up: Primary care physician [...] RN) documented in this encounter Care Teams Trap Setter Relationship Specialty Start Date End Date Ivett Hong MD PCP - General FAMILY PRACTICE 05/20/22 documented as of this encounter
--- OUTSIDE RECORDS SUMMARY | 2024-08-09 23:11 | XMS_ITS | Encounter Summary ---
Author Organization [facility] Address [address] [place] [address]. 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 No / Unsure 10/11/2020 10:01 PM FOOD AND BEVERAGE CONTROLLER documented as of this encounter Plan of Treatment Not on file documented as of this encounter Visit Diagnoses Not on filedocumented in this encounter Care Teams [employer] Task [employer] Planners Relationship Specialty Start Date End Date None, Provider, PCP - General 05/31/19 05/19/22 documented as of this encounter
--- OUTSIDE RECORDS SUMMARY | 2024-08-09 23:11 | XMS_ITS | Encounter Summary ---
Author Organization [facility] Address [facility]. 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
--- OUTSIDE RECORDS SUMMARY | 2024-08-09 23:11 | XMS_ITS | Encounter Summary ---
Author Organization [facility] Address [address] [place] [address]. 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
--- OUTSIDE RECORDS SUMMARY | 2024-08-09 23:11 | XMS_ITS | Encounter Summary ---
Author Organization [facility] Address [address] [place] [address]. [place], [place] [address] [place] [address] Care Team Providers Care Pole Tester Name Role Phone None, Provider Primary Care Provider Unavaila ble Encounter Details Date Type Department Care Team (Latest Contact Info) Description 05/13/2020 Travel Social History Tobacco Use Types Packs/Day Years Used Date Smoking Tobacco: Never Assessed Sex and Gender Information Value Date Recorded Sex Assigned at Not on file Legal Sex Male 10:01 PM RANGE AID Gender Identity Not on file Sexual Orientation [...] Rule Out 05/13/2020 05/13/2020 07/12/2020 12:34 AM RANGE AID documented as of this encounter Care Teams Pole Tester Relationship Specialty Start Date End Date None, Provider, PCP - General 05/31/19 05/19/22 documented as of this encounter
--- OUTSIDE RECORDS SUMMARY | 2024-08-09 23:11 | XMS_ITS | Encounter Summary ---
Author Organization [facility] Address [address] [place] [address]. 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 No / Unsure 10/28/2022 12:38 PM BUSINESS DEPARTMENT CHAIR documented as of this encounter Plan of Treatment Not on file documented as of this encounter Visit Diagnoses Not on filedocumented in this encounter Care Teams Single Needle Tufting Machine Operator Relationship Specialty Start Date End Date Ivett Hong MD PCP - General FAMILY PRACTICE 05/20/22 documented as of this encounter
--- OUTSIDE RECORDS SUMMARY | 2024-08-09 23:11 | XMS_ITS | Encounter Summary ---
Author Organization [facility] Address [address] [place] [address]. [place], [place] [address] [place] [id number] Care Team Providers Care Note Taker Name Role Phone Ivett Hong MD Primary Care Provider [phone] Reason for Referral * Imaging (Urgent) - New Request Specialty Diagnoses / Procedures Referred By Gavin perez Referred To Contact RADIOLOGY Procedures CT HEAD WO CON Oumar Mckenna MD Phone: tel: fax: Referral ID Status Reason Start Date Expiration Date V isits Requested Visits Authorized [id number] New Request 09/06/2023 09/06/2024 1 1 OPERATOR Reason for Visit * Reason Comments Medical Problem Encounter Details Date Type Department Care Team (Late st Contact Info) Description 09/06/2023 7:08 PM KST OPERATOR - 09/06/2023 10:18 PM KST OPERATOR Emergency [facility] Emergency [address] [place] [address] Oumar Mckenna MD [address] [place] [address] [id number] Medical Problem Discharge Disposition: Home or Self Care (Routine Discharge) Social History Tobacco Use Types Packs/Day Years Used Date Smoking Tobacco: Never Assessed Sex and Gender Information Value Date Recorded Sex Assigned at Not on file Legal Sex Male 10:01 PM KST OPERATOR Gender Identity Not on file Sexual Orientation Not on file documented as of this encounter Last Filed Vital Signs Vital Sign Reading Time Taken Comments Blood Pressure 139/101 09/06/2023 10:09 PM KST OPERATOR Pulse 84 09/06/2023 10:09 PM KST OPERATOR Temperature 37 ??C (98.6 ??F) 09/06/2023 7:05 PM KST OPERATOR Respiratory Rate 16 09/06/2023 10:0 9 PM KST OPERATOR Oxygen Saturation 95% 09/06/2023 10: 09 PM KST OPERATOR Inhaled Oxygen Concentration - - Weight 58.8 kg (129 lb 10.1 oz) 09/06/2023 7:05 PM KST OPERATOR Height 167.6 cm (5' 6 ) 09/06/2023 7:05 PM KST OPERATOR Body Mass Index 20.92 09/06/2023 7:05 PM KST OPERATOR documented in this encounter Discharge Instructions * Discharge Instructions* Jennifer Angeles MD - 09/06/2023 10:13 PM KST OPERATOR Contact PCP about syncope as well as anxiety/insomnia/PTSD. OPERATOR * Attachments The following attachments cannot be sent through Care Everywhere. * Syncope (fainting) (Bangladeshi) documented in this encounter Medications at Time [...] encounter of 09/06/23 ECG 12 lead Narrative 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: Shazia JEAN-BAPTISTE : 1995 Requested By: JENNIFER ANGELES Order Number: [id number] Reading MD: Measurements Intervals [place] Rate: 88 P: 69 OK: 129 QRS: 81 QRSD: 110 T: 55 [...] HEAD WO CON Final Result by User, [id number] (09/06 2017) EXAMINATION: CT of the head [...] XR CHEST PORTABLE Final Result by User, [id number] (09/06 1953) EXAM: XR CHEST PORTABLE DATE: [...] evidence of ischemia. Oumar Mckenna MD 09/08/23452 OPERATOR OPERATOR OPERATOR * ANGELICA Miles - 09/06/2023 7:03 PM CST Pt arrives to triage with c/o feeling like something is not right . Pt states sometimes he gets a point where he almost passes out. States this has been ongoing for years. Pt appears anxious at timeof triage, is pacing at this time. Denies any PMH OPERATOR documented in this encounter Plan of Treatment Not on file documented as of this encounter Procedures Procedure Name Priority Date/Time Associated Diagnosis Comments DRUG SCREEN RAPID Nurse Collected Priority 09/06/2023 10:[address] HEAD WO CON STAT 09/06/2023 8:07 PM KST OPERATOR XR CHEST PORTABLE STAT 09/06/2023 7:3 9 PM KST OPERATOR TSH W/REFLEX STAT 09/06/2023 7:37 PM KST OPERATOR BASIC METABOLIC PANEL STAT 09/06/2023 7:37 PM KST OPERATOR HEPATIC FUNCTION PANEL STAT 09/06/2023 7:37 PM KST OPERATOR CBC W/DIFF AUTOMATED STAT 09/06/2023 7:37 PM KST OPERATOR TROPONIN, QUANT STAT 09/06/2023 7:37 PM KST OPERATOR MAGNESIUM STAT 09/06/2023 7:37 PM KST OPERATOR ECG 12-LEAD STAT 09/06/2023 7:32 PM KST OPERATOR documented in this encounter Results * (ABNORMAL) DRUG SCREEN RAPID (09/06/2023 10:10 PM KST OPERATOR) PHENCYCLIDINE PCP (U) NEGATIVE NEGATIVE 09/06/2023 10:58 PM KST OPERATOR [facility] BENZODIAZEPINES SCREEN (U) NEGATIVE NEGATIVE 09/06/2023 10:58 PM KST OPERATOR [facility] COCAINE METABOLITES (U) NEGATIVE NEGATIVE 09/06/2023 10:58 PM KST OPERATOR [facility] AMPHETAMINE (U) NEGATIVE NEGATIVE 10:58 PM KST OPERATOR [facility] CANNABINOIDS SCREEN (U) POSITIVE SCREEN RESULT, IF CONFIRMATION DESIRED PLEASE CONTACT LAB WITHIN ONE WEEK. (A) NEGATIVE 09/06/2023 10:58 PM KST OPERATOR [facility] OPIATE SCREEN (U) NEGATIVE NEGATIVE 024 10:58 PM KST OPERATOR [facility] BARBITURATES SCREEN (U) NEGATIVE NEGATIVE 09/06/2023 10:58 PM KST OPERATOR [facility] URINE TOX COMMENT Unconfirmed screening results are to be used only for medical purposes. 09/06/2023 10:10 PM [facility] CUTOFF CONCENTRATION (U) Cut-off Concentration for a positive result 09/06/2023 10:10 PM KST OPERATOR [facility] Comment: Phencyclidine ? 25 ng/mL Benzodiazepines ? 200 ng/mL Cocaine ? 300 ng/mL Amphetamine ? 1000 ng/mL Cannabinoids ?50 ng/mL Opiates ? 300 ng/mL Barbiturates ?200 ng/mL URINE SPECIMEN / Unknown 09/06/2023 10:10 PM KST OPERATOR us Oumar Mckenna MD URINE ORDERABLES Final Re sult [facility] [address] [place] [address], [id number] * CT HEAD WO CON (09/06/2023 8:07 PM KST OPERATOR) Anatomical Region Laterality Modality Head Computed Tomogra phy 09/06/2023 8:15 PM KST OPERATOR Impressions 09/06/2023 8:17 PM KST OPERATOR IMPRESSION: 1. No definite CT evidence of acute intracranial abnormality. Referred By: ?? Interpreted By: Vin Chapman MD, 09/06/2023 8:15 PM Narrative 09/06/2023 8:17 PM KST OPERATOR EXAMINATION: CT of the head CLINICAL HISTORY: [...] * XR CHEST PORTABLE (09/06/2023 7:39 PM KST OPERATOR) Anatomical Region Laterality Modality Chest Radiographic Chelsie ging 09/06/2023 7:48 PM KST OPERATOR Impressions 09/06/2023 7:52 PM KST OPERATOR IMPRESSION: Normal exam. Referred By: ?? Interpreted By: Bakari Ferrara MD, 09/06/2023 7:48 PM Narrative 09/06/2023 7:52 PM KST OPERATOR EXAM: XR CHEST PORTABLE DATE: 09/06/2023 ?? [...] (ABNORMAL) HEPATIC FUNCTION PANEL (09/06/2023 7:37 PM KST OPERATOR) BILIRUBIN TOTAL S/P/B 0.7 0.2 - 1.0 MG/DL 09/06/2023 8:41 PM KST OPERATOR [facility] BILIRUBIN DIRECT S/P/B 0.2 0.0 - 0.2 MG/DL 09/06/2023 8:41 PM KST OPERATOR [facility] ALKALINE PHOSPHATASE S/P/B 93 45 - 115 U/L 09/06/2023 8:41 PM KST OPERATOR [facility] AST 42(H) 15 - 37 U/L 09/06/2023 8:41 PM KST OPERATOR [facility] ALT 36 16 - 61 U/L 09/06/2023 8:41 PM KST OPERATOR [facility] TOTAL PROTEIN S/P/B 8.3(H) 6.4 - 8.2 G/DL 09/06/2023 8:41 PM KST OPERATOR [facility] ALBUMIN S/P/B 4.5 3.4 - 5.0 G/DL 09/06/2023 8:41 PM KST OPERATOR [facility] 09/06/2023 7:37 PM KST OPERATOR us Oumar Mckenna MD LABORATORY Final Res ult Performing Organization Address [facility] Co de Phone Number [facility] [address] [place] [address], [phone] * TSH W/REFLEX (09/06/2023 7:37 PM KST OPERATOR) TSH 1.220 0.358 - 3.740 uIU/ML 09/06/2023 8:41 PM KST OPERATOR [facility] Comment: ASSAY PERFORMED BY CHEMILUMINESCENCE METHODOLOGY USING SI[employer] [facility]. PATIENT RESULTS DETERMINED BY ASSAYS USING DIFFERENT MANUFACTURERS FOR METHODS MAY NOT BE COMPARABLE. 09/06/2023 7:37 PM KST OPERATOR us Oumar Mckenna MD LABORATORY Final Res ult Performing Organization Address [facility] de Phone Number [facility] [address] [place] [address], [phone] * MAGNESIUM (09/06/2023 7:37 PM KST OPERATOR) MAGNESIUM 2.3 1.6 - 2.6 MG/DL 09/06/2023 8:14 PM KST OPERATOR [facility] 09/06/2023 7:37 PM KST OPERATOR us Jennifer Angeles MD LABORATORY Final Result Performing Organization Address [facility] Co de Phone Number [facility] [address] [place] [address], [phone] * TROPONIN, QUANT (09/06/2023 7:37 PM KST OPERATOR) Pathologist [facility] TROPONIN I HIGH SENSITIVITY 21 0 - 78 ng/L 09/06/2023 8:14 PM [facility] 09/06/2023 7:37 PM KST OPERATOR Jennifer Angeles MD LABORATORY Final Result [facility] [address] [place] [address], [phone] * BASIC METABOLIC PANEL (09/06/2023 7:37 PM KST OPERATOR) [facility] SODIUM S/P/B 142 136 - 145 MMOL/L 09/06/2023 8:14 PM [facility] POTASSIUM S/P/B 3.6 3.5 - 5.1 MMOL/L 09/06/2023 8:14 PM [facility] CHLORIDE S/P/B 104 98 - 107 MMOL/L 09/06/2023 8:14 PM [facility] CO2 31.8 21.0 - 32.0 MMOL/L 09/06/2023 8:14 PM [facility] GLUCOSE 92 74 - 106 MG/DL 09/06/2023 8:14 PM [facility] BUN 12 7 - 18 MG/DL 09/06/2023 8:14 PM [facility] CREATININE S/P/B 1.01 0.70 - 1.30 MG/DL 09/06/2023 8:14 PM [facility] CALCIUM S/P/B 9.7 8.5 - 10.1 MG/DL 09/06/2023 8:14 PM [facility] ANION GAP 6.2 5.0 - 15.0 MMOL/L 09/06/2023 8:14 PM [facility] OSMOLALITY (CALC) 293 MOSM/KG 024 8:14 PM KST OPERATOR [facility] Comment:REFERENCE RANGE NOT ESTABLISHED GFR ESTIMATE >90 >90 ML/MIN/1. 73 M2 09/06/2023 8:14 PM KST OPERATOR [facility] GFR NOTES GFR REFERENCE S: 09/06/2023 8:14 PM KST OPERATOR [facility] Comment: THE ESTIMATED GFR IS [...] FAILURE: <15 ml/min/1.73 m2 09/06/2023 7:37 PM KST OPERATOR Jennifer Angeles MD LABORATORY Final Result [facility] [address] [place] [phone], [id number] * (ABNORMAL) CBC W/DIFF AUTOMATED (09/06/2023 7:37 PM KST OPERATOR) WBC 2.65(L) 4.00 - 10.80 x10'3/uL 09/06/2023 7:50 PM KST OPERATOR [facility] RBC 4.86 4.50 - 6.10 x10'6/uL 09/06/2023 7:50 PM KST OPERATOR [facility] HGB 15.3 13.0 - 18.0 G/DL 09/06/2023 7:50 PM KST OPERATOR [facility] HCT 43.4 37.0 - 52.0 % 09/06/2023 7:50 PM KST OPERATOR [facility] MCV 89.3 78.0 - 100.0 FL 09/06/2023 7:50 PM [facility] MCH 31.5(H) 27.0 - 31.0 PG 09/06/2023 7:50 PM [facility] MCHC 35.3 33.0 - 36.0 G/DL 09/06/2023 7:50 PM [facility] RDW 12.1 11.5 - 14.5 % 09/06/2023 7:50 PM [facility] PLT 273 150 - 350 x10'3/uL 09/06/2023 7:50 PM [facility] MPV 8.7 7.4 - 10.4 FL 09/06/2023 7:50 PM [facility] ABS. NEUTROPHILS 1.14(L) 1.60 - 8.30 x10'3/uL 09/06/2023 8:30 PM [facility] ABS. NEUTROPHILS CALCULATED 1.14(L) 1.60 - 7.30 x10'3/uL 09/06/2023 8:30 PM KST OPERATOR [facility] ABS. LYMPHOCYTES 1.11 0.80 - 4.70 x10'3/uL 09/06/2023 8:30 PM [facility] ABS. MONOCYTES 0.19 0.00 - 1.50 x10'3/uL 09/06/2023 8:30 PM [facility] ABS. EOSINOPHILS 0.13 0.00 - 0.40 x10'3/uL 09/06/2023 8:30 PM [facility] ABS. BASOPHILS 0.08 0.00 - 0.20 x10'3/uL 09/06/2023 8:30 PM [facility] ABS. NUCLEATED RBC'S 0.00 0.0 x10'3/uL 09/06/2023 8:30 PM [facility] RBC MORPHOLOGY NORMAL 09/06/2023 8:30 PM [facility] PLT MORPH. NORMAL 09/06/2023 8:30 PM KST OPERATOR [facility] 09/06/2023 7:37 PM KST OPERATOR us Jennifer Angeles MD LABORATORY Final Result [facility] [address] [place] [address], [phone] * ECG 12 lead (09/06/2023 7:32 PM KST OPERATOR) 09/06/2023 7:32 PM KST OPERATOR Narrative [facility] RAD - 09/08/2023 11:51 AM KST OPERATOR ?[facility] ? Test Date: ?2023-09-06 Pat Name: ? FELISA OLIVERA ?Department: ?? 70 ? Room: ? EXAM AA Gender: ? Male ? Steam Pipe Fitter: ?? Shazia JEAN-BAPTISTE DOB: ?1995 ? Requested By: JENNIFER ANGELES Order Number: [id number] ? Reading : ?? Luciano Rivera ? Measurements Intervals ?[place] ? Rate: ? 88 ? P: ?69 OK: ? 129 ?QRS: ?81 QRSD: ? 110 ?T: ?55 QT: ? 331 ? QTc: ?401 ? Interpretive Statements SINUS RHYTHM WITH SINUS ARRHYTHMIA EARLY REPOLARIZATION VOLTAGE CRITERIA FOR LVH, MAY BE NORMAL VARIANT OPERATOR Procedure Note Luciano Rivera MD - 09/08/2023 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: Shazia JEAN-BAPTISTE : 1995 Requested By: JENNIFER ANGELES Order Number: [id number] Ministerio MD: Luciano Rivera Measurements Intervals [place] Rate: 88 P: 69 OK: 129 QRS: 81 QRSD: 110 T: 55 QT: 331 QTc: 401 Interpretive Statements SINUS RHYTHM WITH SINUS ARRHYTHMIA EARLY REPOLARIZATION VOLTAGE CRITERIA FOR LVH, MAY BE NORMAL VARIANT OPERATOR Jennifer Angeles MD ECG ORDERABLES Final Result [facility] documented in this encounter Visit Diagnoses Diagnosis Pre-syncope- Primary Syncope and collapse documented in this encounter Administered Medications Inactive Administered Medications - up to 3 most recent administrations Medication Order MAR Action Action Date Dose Rate Site normal saline 0.9 % flush 3-10 mL 3-10 mL, Intravenous, Every 8 hours, First dose on Wed09/06/23 at 1930, Until Discontinued Given 09/06/2023 7:38 PM KST OPERATOR 10 mLs normal saline 0.9 % flush 3-10 mL 3-10 mL, Intravenous, As needed, Line care, Starting on Wed09/06/23 at 1928, Until 09/07/23 at 0023 sodium chloride 0.9% bolus infusion 1,000 mL 1,000 mL, Intravenous, Administer over 60 Minutes, Once, 1 dose, On Wed09/06/23 at 1930 New Bag 09/06/2023 7:38 PM KST OPERATOR 1,000 mLs documented in this encounter Active and Recently Administered Medications Times are shown in KST OPERATOR. Scheduled Medication Order 09/04/2023 09/05/2023 09/06/2023 normal [...] 0023 documented in this encounter Care Teams Note Taker Relationship Specialty Start Date End Date Ivett Hong MD PCP - General FAMILY PRACTICE 05/20/22 documented as of this encounter
--- OUTSIDE RECORDS SUMMARY | 2024-08-09 23:11 | XMS_ITS | Encounter Summary ---
Author Organization [facility] Address [facility] [place] [place], [place] [id number] [place] [phone] Care Team Providers Care Social Science Instructor Name Role Phone Unavailable Primary Care Provider Unavailabl e Encounter Details Date Type Department Care Team (Late st Contact Info) Description 04/20/[address] [facility] Emergency [address] [place] [address] Alonzo Davis MD [address] [place] [address] Social History Tobacco Use Types Packs/Day Years Used Date Smoking Tobacco: Never Assessed Sex and Gender Information Value Date Recorded Sex Assigned at Not on file Legal Sex Male 10:01 PM TRACK HOE OPERATOR Gender Identity Not on file Sexual Orientation Not on file documented as of this encounter Plan of Treatment Not on file documented as of this encounter Visit Diagnoses Diagnosis Closed fracture of metacarpal bone Closed fracture of metacarpal bone(s), site unspecified documented in this encounter
--- OUTSIDE RECORDS SUMMARY | 2024-08-09 23:11 | XMS_ITS | Encounter Summary ---
Author Organization [facility] Address [address] [place] [address]. [place] [address] [place] [address] Care Team Providers Care Imaging Account Manager Name Role Phone None, Provider Primary Care Provider Unavaila ble Reason for Referral * Imaging (Emergency) - Closed Specialty Diagnoses / Procedures Referred By Gavin perez Referred To Contact RADIOLOGY Procedures US TESTICULAR Jose Daniel NP Phone: tel: fax: Referral ID Status Reason Start Date Expiration Date Visits Re quested Visits Authorized [id number] Closed 05/31/2019 07/01/2020 1 1 Reason for Visit * Reason Comments Testicle Swelling Encounter Details Date Type Department Care Team (Late st Contact Info) Description 05/31/2019 2:07 PM CDT - 05/31/2019 5:04 PM CDT Emergency [facility] Emergency [address] [place] [address] Karissa Marin, TINO Testicle Swelling Discharge Disposition: Home or Self Care (Routine Discharge) Social History Tobacco Use Types Packs/Day Years Used Date Smoking Tobacco: Never Assessed Sex and Gender Information Value Date Recorded Sex Assigned at Not on file Legal Sex Male 10:01 PM PAID INTERNSHIP Gender Identity Not on file Sexual Orientation [...] through Care Everywhere. * Hydrocele/Varicocele Discharge Instructions (Maldivian) documented in this encounter Medications at Time [...] Ref Range COLOR YELLOW TRANSPARENCY CLEAR Specific [place] (U) 1.029 1.002 - 1.035 U PH [...] STUDIES US TESTICULAR Final Result by User, [id number] (10/09 1514) 05/31/2019, 1432 hours. HISTORY: Left [...] US results with patient. Pain decreased after Sadler. 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 Provided with Urology referral as needed as well as PCP referral. Discharged on short course of Sadler and Motrin. Discussed all results and incidental [...] 10 tablet, Refills: 0 Class: Print Pharmacy: [facility]/pharmacy [address] [place] [address] (Ph #: [phone]) ibuprofen 600 MG tablet Take 1 tablet (600 mg total) by mouth every 6 (six) hours as needed. Qty: 20 tablet, Refills: 0 Class: Eprescribe [facility] [place] [address] (Ph #: [phone]) Follow-up: Zhou Mobley MD [address] [place] [id number] As needed, Urologist [facility] [address] [facility] [address] As needed, PCP referral Iris Luna, 05/31/19, [...] URINE CLEAN CATCH 05/31/2019 3:55 PM CDT [facility] SPECIAL REQUESTS NO SPECIAL REQUEST 05/31/2019 3:55 PM CDT [facility] CULTURE RESULT NO GROWTH (< OR = 1,000 CFU/ML) 06/01/2019 2:47 AM CDT [facility] URINE SPECIMEN OBTAINED BY CLEAN CATCH PROCEDURE / Unknown 05/31/2019 3:51 PM CDT 05/31/2019 3:59 PM CDT Jose Daniel NP MICROBIOLOGY - GENERAL [place] Final Result [facility] [address] [place] [address], [phone] * (ABNORMAL) URINALYSIS (05/31/2019 3:51 PM CDT) COLOR (U) YELLOW 05/31/2019 4:07 PM CDT [facility] TRANSPARENCY CLEAR 05/31/2019 4:07 PM CDT [facility] SPECIFIC GRAVITY (U) 1.029 1.002 - 1.035 05/31/2019 4:07 PM CDT [facility] U PH 6.0 5 - 8 05/31/2019 4:07 PM CDT [facility] PROTEIN (U) NEGATIVE NEGATIVE 05/31/2019 4:07 PM CDT [facility] URINE GLUCOSE NEGATIVE NEGATIVE MG/DL 05/31/2019 4:07 PM CDT [facility] KETONES MG/DL (U) 20(A) NEGATIVE 05/31/2019 4:07 PM CDT [facility] BILIRUBIN (U) NEGATIVE NEGATIVE 05/31/2019 4:07 PM CDT [facility] BLOOD (U) NEGATIVE NEGATIVE 05/31/2019 4:07 PM CDT [facility] NITRITES NEGATIVE NEGATIVE 05/31/2019 4:07 PM CDT [facility] UROBILINOGEN 4.0(H) 0 - 1 EU/DL 05/31/2019 4:07 PM CDT [facility] LEUKOCYTES (U) NEGATIVE NEGATIVE 05/31/2019 4:07 PM CDT [facility] RBC/HPF 1 0 - 3 /HPF 05/31/2019 4:07 PM CDT [facility] WBC/HPF NONE 0 - 6 /HPF 05/31/2019 4:07 PM CDT [facility] BACTERIA (U) NONE /HPF 05/31/2019 4:07 PM CDT [facility] URINE SPECIMEN OBTAINED BY CLEAN CATCH PROCEDURE / Unknown 05/31/2019 3:51 PM CDT us Jose Daniel PAIN MANAGEMENT NURSE URINE ORDERABLES Final Resu lt [facility] [address] [place] [address], [phone] * US TESTICULAR (05/31/2019 3:01 PM CDT) [...] RN) documented in this encounter Care Teams Imaging Account Manager Relationship Specialty Start Date End Date None, Provider, PCP - General 05/31/19 05/19/22 documented as of this encounter
--- OUTSIDE RECORDS SUMMARY | 2024-08-09 23:11 | XMS_ITS | Encounter Summary ---
Author Organization [facility] Address [facility] [place] [address] [place] [address] Care Team Providers Care Licensed Optician Name Role Phone None, Provider MD Primary Care Provider Unavaila ble Reason for Referral * (Routine) - Closed Specialty Diagnoses / Procedures Referred By Gavin perez Referred To Contact Procedures LACERATION REPAIR Trevon Puri MD Referral ID Status Reason Start Date Expiration Date Visits Re quested Visits Authorized [id number] Closed 10/12/2020 11/09/2021 1 1 T TECHNICIAN * Imaging (Emergency) - Closed Specialty Diagnoses / Procedures Referred By Gavin perez Referred To Contact RADIOLOGY Procedures CT HEAD WO CON Trevon Puri MD Referral ID Status Reason Start Date Expiration Date Visits Re quested Visits Authorized [id number] Closed 10/11/2020 11/08/2021 1 1 T TECHNICIAN Reason for Visit * Reason Comments Laceration Head Injury With Loc Encounter Details Date Type Department Care Team (Late st Contact Info) Description 10/11/2020 10:15 PM ROBOT TECHNICIAN - 10/12/2020 12:54 AM ROBOT TECHNICIAN Emergency [facility] Emergency [address] [place] [address] Shonna Morales DO [address] [place] [id number] Laceration; Head Injury With Loc Discharge Disposition: Home or Self Care (Routine Discharge) Social History Tobacco Use Types Packs/Day Years Used Date Smoking Tobacco: Never Assessed Sex and Gender Information Value Date Recorded Sex Assigned at Not on file Legal Sex Male 10:01 PM ROBOT TECHNICIAN Gender Identity Not on file Sexual Orientation Not on file COVID-19 Exposure Response Date Recorded In the last month, have you been in contact with someone who was confirmed or suspected to have Coronavirus / COVID-19? No / Unsure 10/11/2020 10:01 PM ROBOT TECHNICIAN documented as of this encounter Last Filed Vital Signs Vital Sign Reading Time Taken Comments Blood Pressure 128/80 10/11/2020 10:06 PM ROBOT TECHNICIAN Pulse 61 10/11/2020 10:06 PM ROBOT TECHNICIAN Temperature 36.8 ??C (98.2 ??F) 10/11/2020 1 0:06 PM ROBOT TECHNICIAN Respiratory Rate 18 10/11/2020 10:0 6 PM ROBOT TECHNICIAN Oxygen Saturation 100% 10/11/2020 10: 06 PM ROBOT TECHNICIAN Inhaled Oxygen Concentration - - Weight 62.9 kg (138 lb 10.7 oz) 021 10:06 PM ROBOT TECHNICIAN Height 172.7 cm (5' 8 ) 10/11/2020 10:0 6 PM ROBOT TECHNICIAN Body Mass Index 21.08 10/11/2020 10:06 PM ROBOT TECHNICIAN documented in this encounter Discharge Instructions * Discharge Instructions* Trevon Puri MD - 10/12/2020 12:47 AM ROBOT TECHNICIAN Your stitches will dissolve on their own. Follow up with your regular doctor. T TECHNICIAN * Attachments The following attachments cannot be sent through Care Everywhere. 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 +LOC. Patient notes dizziness and headache. Will [...] Shonna Morales DO at 10/12/2020 4:20 PM ROBOT TECHNICIAN T TECHNICIAN T TECHNICIAN Associated attestation - Shonna Morales DO - 10/12/2020 4:20 PM ROBOT TECHNICIAN Teaching Physician - I, SHONNA MORALES DO, [...] positive LOC for a few minutes . T TECHNICIAN documented in this encounter Plan of Treatment Not on file documented as of this encounter Procedures Procedure Name Priority Date/Time Associated Diagnosis Comments CT HEAD WO CON STAT 10/11/2020 11:33 PM ROBOT TECHNICIAN LACERATION REPAIR Routine 10/11/2020 11: 15 PM ROBOT TECHNICIAN documented in this encounter Results * CT HEAD WO CON (10/11/2020 11:33 PM ROBOT TECHNICIAN) Anatomical Region Laterality Modality Head Computed Tomogra phy 10/11/2020 11:4 4 PM ROBOT TECHNICIAN Impressions 10/11/2020 11:48 PM ROBOT TECHNICIAN IMPRESSION: 1) No significant abnormality is demonstrated. Referred By: TREVON PURI Interpreted By: Pascual Marshall MD, 10/11/2020 11:44 PM Narrative 10/11/2020 11:48 PM ROBOT TECHNICIAN Examination: CT HEAD WO CON Exam time: [...] Result * Lac Repair (10/11/2020 11:15 PM ROBOT TECHNICIAN) Shonna Beasley DO - 10/11/2020 11:15 PM ROBOT TECHNICIAN Trevon Puri MD ? 10/12/2020 ??1:31 AM [...] 0015 Given by Other 10/12/2020 12:54 AM ROBOT TECHNICIAN 10 mLs Face documented in this encounter Active and Recently Administered Medications Times are shown in ROBOT TECHNICIAN. Scheduled Medication Order 10/10/2020 10/11/2020 10/12/2020 lidocaine (XYLOCAINE) 1 % injection SOLN 10 mL (COMPLETED) 10 mL, Intradermal, Once, 1 dose, On 10/12/20 at 0015 0054 (Given by Other - Provider: Shonna Ty RN) documented in this encounter Care Teams Licensed Optician Relationship Specialty Start Date End Date None, Provider, PCP - General 05/31/19 05/19/22 documented as of this encounter
--- OUTSIDE RECORDS SUMMARY | 2024-08-09 23:11 | XMS_ITS | Encounter Summary ---
Author Organization [facility] Address [facility] [place], [place] [address] [place] [address] Care Team Providers Care Frame Runner Name Role Phone Unavailable Primary Care Provider Unavailabl e Encounter Details Date Type Department Care Team (Late st Contact Info) Description 08/25/[address] [facility] Emergency [address] [place] [address] , Carolyn Serrato MD Social History Tobacco Use Types Packs/Day Years Used Date Smoking Tobacco: Never Assessed Sex and Gender Information Value Date Recorded Sex Assigned at Not on file Legal Sex Male 10:01 PM MARINE SURVEYOR Gender Identity Not on file Sexual Orientation Not on file documented as of this encounter Plan of Treatment Not on file documented as of this encounter Visit Diagnoses Not on filedocumented in this encounter
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
--- OUTSIDE RECORDS SUMMARY | 2024-08-09 23:11 | XMS_ITS | Encounter Summary ---
Author Organization [facility] Address [facility]. [place], [place] [address] [place] [address] Care Team Providers Care Design Eng Name Role Phone Unavailable Primary Care Provider Unavailabl e Encounter Details Date Type Department Care Team (Late st Contact Info) Description 09/02/[address] 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
== END 2024-08-05 16:53 | disposition home or self-care (01) ==
PROVIDERS: Emergency Provider Physician Assistant
DX: S09.90XA Unspecified injury of head, initial encounter (principal); S39.012A Strain of muscle, fascia and tendon of lower back, initial encounter; V89.2XXA Person injured in unspecified motor-vehicle accident, traffic, initial encounter
CPT/HCPCS: 70450; 72072; 72100; 72125; 99284; A9270